=== PATIENT | male | born 1945 | race Caucasian/White ===

== ENCOUNTER 2019-04-01 07:50 | Outpatient (CLI) | payer MEDICARE, BC, SELFPAY ==
--- NOTE | 2019-04-01 07:45 | XR_ITS ---
WS: [id number] KUB, 04/01/2019 Clinical Data: RENAL CALCULUS Comparison: KUB, 02/25/2018. Findings: There are scattered calcifications overlying the left kidney which have not changed in appearance fro m the previous exam. There is a large amount of fecal material obscuring detail over both kidneys. There is a 1.5 cm calcification which is overlying the superior aspect of the bladder that was not pr esent last year. This is suspicious for a small bladder calculus XR/XR KUB [id number] Impression: 1. Several calcifications overlying left kidney obscured by fecal material unch anged. 2. Large amount of fecal material in the colon. 3. Calcification overlying superior aspect of the bladder.
== END 2019-04-01 07:51 | disposition home or self-care (01) ==
LOC: RAD 07:54
PROVIDERS: Family Provider Family Medicine; PCP Family Medicine; Visit Provider Urology
DX: N20.0 Calculus of kidney (principal)
CPT/HCPCS: 74018; 81001

== ENCOUNTER 2019-04-03 10:26 | Day surgery (SDC) | payer MEDICARE, BC, SELFPAY ==
[2019-04-02 12:04] VITALS: BMI 24.4
[2019-04-03] VITALS (8 sets, daily range): BP systolic 104–132; BP diastolic 64–78; PULSE 46–61; RESP 11–18; TEMP 36.9–37; O2SAT 97–100
--- NOTE | 2019-04-03 | SCC_ITS ---
Procedure Done: 1. Cystoscopy with bilateral retrograde ureteropyelogram's 2. Cystolitholapaxy 28.9 seconds of fluoroscopic guidance, for a cumulative dose of 4.80 mGy, was provided to Dr. Brooks by the radiology department. C-arm images of the abdomen were saved for the patient's permanent record. [facility]
[2019-04-03] MEDS: sodium chloride 0.9% 1,000 ML 30 ML IV (10:55)
--- NOTE | 2019-04-03 11:53 | ANES.PREANE2 ---
Pre-Anesthetic Assessment Pre-Anesthetic Assessment: Height/Weight: Height 1.85 m Weight 83.915 kg Temp Pulse Resp BP Pulse Ox 98.6 F 60 18 118/78 99 04/03/19 10:42 04/03/19 10:42 04/03/19 10:42 04/03/19 10:42 04/03/19 10:42 Preop Diagnosis: Bladder stone Proposed Procedure: Operation Date: 04/03/19 12:00 Proposed Procedures p Cystolitholapaxy 32621 N21.0(Not Applicable) - Oscar Brooks MD Familial anesthetic complications: None Was Beta Say taken within 24 hours: N/A Last intake: Intake Last Liquid Date 04/02/19 Last Liquid Time 22:00 Last Solid Date 04/02/19 Last Solid Time 22:00 Social: Social History: No alcohol and No tobacco Exam: Pre-Anes Outpt Exam: alert, oriented x 3, clear to auscultation bilaterally and regular rate & rhythm Airway: Cervical ROM: WNL MP: 2 Dentition: Full Pulmonary: Pulmonary: None reported CV/HEM: CV/HEM: None reported : : None reported Hepatic: Hepatic: None reported GI: GI: None reported Metabolic: Metabolic: None reported Musc/skel: Musc/skel: None reported Neuropsych: Neuropsych: None reported Anesthetic Plan: ASA status: 1 Anesthesia: General Risk of > 500 ml blood loss (7ml/kg in children): No Meds/Allergies Current Medications: Current Medications Generic Name Dose Route Start Last Admin Trade Name Freq PRN Reason Stop Dose Admin Sodium Chloride 1,000 mls @ 30 ml s/hr 04/03/19 10:15 04/03/19 10:55 Sodium Chloride 0.9% IV 04/04/19 10:14 30 mls/hr .Q24H LUIS Administration PFSH Anesthesia PFSH: Social History Smoking and tobacco status: never smoked Alcohol intake: never Marital status: Single Current occupational status: retired History of recent travel: No Data Anesthesia Cardiac Studies: No Data to Display
--- NOTE | 2019-04-03 12:00 | W.PM.OPSUD ---
Surgery/Procedure H&P Update DATE OF PROCEDURE: April 03, 2019 DATE H&P PERFORMED: 04/01/19 H&P UPDATE INFORMATION: I have examined patient prior to procedure and Changes to prior documentation as noted here CHANGES TO PREVIOUS DOCUMENTATION: Patient is worried that he might actually have a ureteral stone. Previous imaging did not demonstrate that in his back pain that he is worried might be a reflection of pain is not typical for renal colic. He did request though that we consider procedure intraoperatively that may help answer that question definitively. I offered rather than endoscopy of his ureters to perform bilateral retrograde pyelograms and explained the utility potentially. He agreed that that would satisfy his concern. PREOP DIAGNOSIS: Bladder stone PLANNED PROCEDURE: Operation Date: 04/03/19 12:00 Proposed Procedures p Cystolitholapaxy 37251 N21.0(Not Applicable) - Oscar Brooks MD
--- NOTE | 2019-04-03 12:02 | P.OP_ITS ---
Operative Report Date of procedure: April 03, 2019 Pre-op Diagnosis: Bladder stone, back pain Post-op diagnosis: same Post-op Findings: Bladder stone as expected. Normal bilateral retrograde pyelogram Implants: None Pathology: other Pathology: Stone fragments Surgeon: Cecilia Anesthesia: General Estimated blood loss: Minimal Urine output: Not measured Complications: None Findings: 1. Normal bilateral retrograde pyelograms 2. Bladder stone easily fragmented with laser lithotripsy and all fragments removed. Condition: stable Disposition: PACU Brief History: Ilir is a very pleasant 74-year-old white male well-known to me for history of stones and polyuria. Recently had some gross hematuria and some irritative voiding symptoms. Cystoscopy demonstrated a bladder stone and with this was felt to be the source of his bleeding and symptoms. KUB failed to show any obvious change in his renal calculi and no evidence of stones in the ureters. Was scheduled for cystolitholapaxy. Today he was expressing some concern that maybe he had a ureteral stone and he had trouble telling the difference between kidney stone pain and his chronic back pain. Requested that I look up into his ureters. We decided to perform instead bilateral retrograde ureteral pyelograms and only consider endoscopy if there is evidence of stones on those studies. He was content with that. Procedure: After routine preoperative evaluation examination and obtaining of informed consent he was taken to the operating suite on 04/03/2019 where general anesthesia was administered without difficulty. Prepped and draped in usual sterile fashion in dorsolithotomy position pain careful attention to voiding pressure points. 21 Citizen Of [place] cystoscope with 30 degree lens was introduced into the urethral meatus and advanced into the bladder videoscopy. Bladder was systematically examined. The stone was confirmed again. No other gross abnormality was identified. There was an area of some inflammation on the posterior bladder wall consistent with irritation from the stone. An 8 Citizen [place] cone-tipped catheter was intubated in his right ureteral orifice for a RIGHT retrograde ureteropyelogram. Findings demonstrated normal course caliber and configuration of the ureter and proximal collecting system. There were no stones seen in the ureter. A LEFT retrograde ureteropyelogram was then performed with the same findings. Attention was then directed to the stone. A 550 ?m homing laser fiber was utilized to fragment the stone to small enough pieces that were then removed with an Ellik evacuator. Bladder wall was inspected and found to be intact with no significant trauma. All fragments were removed from the bladder. Bladder drained. She tolerated the procedure well without complications and was awakened in the operating room and returned to the covered in stable condition. Plans: 1. Follow-up in 6 months with KUB. Sooner for any concerns or questions.
[2019-04-03] MEDS: levofloxacin-dextrose 5 % 500 MG/100 ML PREMIX 100 MG IV (12:05)
--- NOTE | 2019-04-03 12:15 | SC_ITS ---
WS: [id number] C-ARM RADIOGRAPHS BLADDER; 10 IMAGES HISTORY: surgery COMPARISON: 04/01/2019 Intraoperative imaging during retrograde urography. Multiple images are submitted with contrast filli ng the ureters. SC/C-arm FL for Urology IMPRESSION: Intraoperative imaging during retrograde urography.
[2019-04-03] MEDS: iohexol 300 mg/mL 50 mL Btl (OR ONLY) XX (12:28)
--- NOTE | 2019-04-03 12:39 | P.OP_ITS ---
Operative Report Date of procedure: April 03, 2019 Pre-op Diagnosis: Bladder stone, back pain Post-op diagnosis: same Post-op Findings: 1. Bladder stone fragmented all fragments removed 2. Bilateral retrograde ureteral pyelograms normal without evidence of filling defect stones or obstruction. Procedure Done: 1. Cystoscopy with bilateral retrograde ureteropyelogram's 2. Cystolitholapaxy Pathology: Bladder stone fragments Surgeon: Cecilia Anesthesia: General Estimated blood loss: Minimal Urine output: Not measured Complications: None Findings: 1. Bladder stone in expected position and easily fragmented with laser lithotripsy. 2. Normal bilateral retrograde ureteral pyelograms Condition: stable Disposition: PACU Brief History: Ilir is a very pleasant 74-year-old white male with a history of bilateral renal calculi. Recently complained of gross hematuria and irritative voiding symptoms and cystoscopy in the office demonstrated a bladder stone. KUB failed to show any significant change in his renal calculi and no evidence clearly of any stones. He was having some intermittent back pain and he could not distinguish clearly between musculoskeletal chronic back pain and possibility of renal colic (having had stones in the past). Admitted now for cystolitholapaxy and bilateral retrograde ureteral pyelograms (added onto the procedure at his request) Procedure: After routine preoperative evaluation examination and obtaining of informed consent he was taken to the operating suite on 04/03/2019 where general anesthesia was administered without difficulty after appropriate timeout was performed, SCDs confirmed to be functioning, preoperative antibiotics administered, and beta-adilia protocol confirmed. Prepped and draped in the usual sterile fashion in dorsolithotomy position pain careful attention to voiding pressure points. 21 [place] cystoscope with 30 degree lens was introduced to the urethral meatus and advanced into the bladder videoscopy. Bladder was systematically examined. The only abnormality identified in the bladder was the bladder stone in its expected position in size. An 8 [place] cone-tip catheter was intubated into the right ureter orifice for right retrograde ureteropyelogram which showed normal course and caliber of the ureters. No evidence of stones or intraluminal processes. It was then placed into the left ureter for the same with the same results. A 550 ?m homing laser fiber was then utilized to fragment the stone into small enough pieces that were easily evacuated from the bladder. Final inspection showed no evidence of residual stones. There was no significant trauma to the mucosa. Efflux was clear bilaterally from both ureters. He tolerated procedure well without complications and was awakened in the operating room and returned recovery in stable condition. PLANS: 1. Follow-up in about 6 months with a KUB as part of routine surveillance for recurrent urolithiasis.
[2019-04-08 23:00] LABS: Stone Source BLADDER
== END 2019-04-03 14:34 | disposition home or self-care (01) ==
PROVIDERS: Family Provider Family Medicine; PCP Family Medicine; Visit Provider Urology
PROC: 0TCB8ZZ Extirpation of Matter from Bladder, Via Natural or Artificial Opening Endoscopic (ICD-10-PCS; CPT 52005; principal; 2019-04-03 12:00)
PROC: (CPT 74420; 2019-04-03 12:00)
DX: N21.0 Calculus in bladder (principal); R31.0 Gross hematuria
CPT/HCPCS: 52005; 52317; 12345; 76000; 82365; 88300; J1100; J1956; J2001; J2405; J2704; J3010; J3490; J7030

== ENCOUNTER 2019-09-24 12:17 | Outpatient (CLI) | payer MEDICARE, BC, SELFPAY ==
--- NOTE | 2019-09-24 12:00 | XR_ITS ---
WS: [id number] EXAM: ABDOMINAL KUB DATE OF EXAMINATION: 09/24/2019, 1232 hours COMPARISON: Abdominal KUB from 04/01/2019. HISTORY: Patient is 74 years old with kidney stone follow-up. FINDINGS: Bowel gas pattern is normal. There is increased stool in the right side of the colon extending into t he mid descending colon region. This obscures soft tissue detail. Several small calcifications are se en over the left kidney silhouette suggesting small amount of nonobstructing calyceal calcifications. Similar to prior imaging. No definite calcifications seen over the right kidney silhouette but this is obscured by stool. No calcifications are seen overlying the course of the ureters. Multilevel dege nerative changes are seen in the spine. Solid organ silhouettes do not appear enlarged XR/XR KUB [id number] IMPRESSION: Several small punctate calcifications no more than 2 mm in size overlying the l eft kidney silhouette similar to prior imaging. No calcification over the right kidney silhouette or course of the ureters identified to suggest right renal o r ureteral calculi.
== END 2019-09-24 12:18 | disposition home or self-care (01) ==
LOC: RAD 12:23
PROVIDERS: PCP Family Medicine; Visit Provider Urology
DX: N20.0 Calculus of kidney (principal)
CPT/HCPCS: 74018; 81001

== ENCOUNTER 2020-08-18 10:50 | Inpatient (IN) | payer MEDICARE, BC, SELFPAY ==
[2020-08-18] VITALS (18 sets, daily range): BP systolic 98–128; BP diastolic 57–82; PULSE 48–104; RESP 15–20; TEMP 36.7; O2SAT 94–100; BMI 22.1
--- NOTE | 2020-08-18 11:38 | XR_ITS ---
WS: [id number] Portable AP upright chest, 08/18/2020 Clinical Data: dyspnea/cough Comparison: None. Findings: No nodules, masses or effusions are seen. There are minimal patchy upper lobe opacities whi ch may represent chronic fibrotic interstitial change or minimal pneumonia. The heart is normal. The pulmonary vascularity is not increased. No pneumothorax is seen. The aortic arch shows mild tortuosi ty. There are monitor leads on the chest wall. XR/XR chest 1V portable [id number] Impression: 1. Minimal interstitial change in both upper lobes which could indicate chronic fibrotic change or mild pneumonia. 2. Recommend repeat chest x-ray in 2-3 days.
--- NOTE | 2020-08-18 11:39 | ECG_ITS ---
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 Measurements Intervals [place] Rate: 90 P: MO: QRS: 57 QRSD: 103 T: 46 QT: 367 QTc: 449 Interpretive Statements ATRIAL FLUTTER ABNORMAL RHYTHM ECG No previous ECG available for comparison Electronically Signed On 08-18-2020 21:44:00 CDT by Lana Best M.D. [id number]
[2020-08-18 12:03] LABS: Basophils % 0.2 %; Eosinophils % 0.3 %; Hematocrit 43.9 % (42.0-52.0); Lymphocytes # 1.4 10^3/uL (0.8-4.8); Lymphocytes % 21.7 %; Mean Corpuscular HGB Conc 31.9 g/dL (30.0-36.0); Mean Corpuscular Hemoglobin 30.6 pg (28.0-34.0); Mean Corpuscular Volume 95.9 fL (80-94); Mean Platelet Volume 10.1 fL (7.4-10.4); Monocytes # 0.4 10^3/uL (0.2-0.9); Monocytes % 6.2 %; Neutrophils # 4.49 10^3/uL (1.8-7.7); Neutrophils % 71.4 %; Nucleated Red Blood Cells % 0 %; Platelet Count 208 10^3/cmm (130-400); Red Blood Count 4.58 10^6/uL (4.1-5.3); Red Cell Distribution Width 13.9 % (12.1-15.1); White Blood Count 6.3 10^3/uL (4.0-10.0)
[2020-08-18 12:12] LABS: Add Urine Microscopic? NO; Charge for UA Resulting for Rev
[2020-08-18 12:27] LABS: Troponin(5th) Baseline 19 ng/L (0-15)
[2020-08-18 12:37] LABS: Alanine Aminotransferase 12 U/L (0-41); Albumin Level 4.4 g/dL (3.5-5.2); Alkaline Phosphatase 55 IU/L (40-130); Anion Gap 13.6 (5-19); Aspartate Amino Transferase 18 U/L (0-40); Blood Urea Nitrogen 18 mg/dL (8-23); Calcium 9.2 mg/dL (8.5-10.5); Carbon Dioxide 27 mmol/L (22-29); Chloride 105 mmol/L (98-107); Creatine Phosphokinase 92 U/L (39-308); Globulin 1.8 g/dL (1.3-4.6); Glucose 97 mg/dL (65-115); Osmolality Calculated 294 mOsm/kg (285-295); Potassium 4.6 mmol/L (3.5-5.1); Sodium 141 mmol/L (136-145); Total Bilirubin 0.7 mg/dL (0.15-1.2); Total Protein 6.2 g/dL (6.6-8.7)
[2020-08-18 12:42] LABS: Bilirubin Urine Neg (Negative); Blood Urine Neg (Negative); Glucose Urine UA Norm (Normal); Ketones Urine Negative (Negative); Leukocyte Esterase Urine Negative (Negative); Nitrate Urine Negative (Negative); Protein Urine 1+ (Negative); Specific Gravity, Urine 1.025 (1.005-1.030); Urine Appearance Clear (CLEAR); Urine Color Yellow (Yellow); Urobilinogen Urine 1 mg/dL (Negative); pH Urine 5 (5-7)
--- NOTE | 2020-08-18 13:18 | ED_ITS ---
HPI - Syncope General: Chief Complaint: Syncope Stated Complaint: syncope episode, sent from [facility] Time Seen by Provider: 08/18/20 11:37 History of Present Illness: HPI narrative: 75-year-old male presents emergency room he had episodes last night where he stood up he had diaphoretic had a syncopal episode actually woke up on the floor he denies striking his head. He has not had any chest discomfort he denies any cardiac history no known history of irregular heart rhythms. MD complaint: collapsed Onset (ago): hour(s) -: minutes(s) Prodromal symptoms: none Witnessed: No Context: standing up Injuries sustained associated with event: none Associated symptoms: Reports weakness; Deny abdominal pain, chest pain, fever(s), headache(s), lightheadedness, nausea, short of breath or vertigo Treatments prior to arrival: none Review of Systems Const: Denies: fever(s) ENMT: Denies: throat pain, ear or mastoid pain, nasal discharge or nasal congestion Card: Denies: chest pain or lightheadedness Resp: Denies: dyspnea, productive cough or non-productive cough GI: Denies: abdominal pain or nausea : Denies: flank pain, dysuria, urinary frequency or urinary urgency Skin/Breast: Denies: rash or pruritus Neuro: Denies: headache(s) or vertigo PFS ED PFSH: Medical History Bladder stone Gross hematuria History of herniated intervertebral disc Since he was at least 32years old. 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 It does not affect his life and he does not take any medications for it. 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 Urolithiasis Surgical History H/O lithotripsy ESWL History of tonsillectomy Family History Mother , AT AGE 90 Diabetes CHF (congestive heart failure) Father CHF (congestive heart failure) AT AGE 92 Brother Protein S deficiency Unknown No problems noted. Family/Other Protein S deficiency His brother w/ Protein S deficiency's 2 daughters (Patient's 2 nieces). One of the niece's 2 daughters. Social History Smoking and tobacco status: never smoked Alcohol intake: never Marital status: Single Current occupational status: retired History of recent travel: No Physical Exam Const: COMMON NORMALS: no acute distress GENERAL APPEARANCE: cooperative and comfortable ORIENTATION/CONSCIOUSNESS: Yes awake, Yes oriented to person, Yes oriented to place and Yes oriented to time HENMT: COMMON NORMALS: normocephalic, atraumatic and hearing grossly normal bilaterally HEAD & SCALP: normocephalic and atraumatic Neck/C-Spine: COMMON NORMALS: no JVD Resp: COMMON NORMALS: normal respiratory effort, No retractions, No use of accessory muscles and clear to auscultation bilaterally AUSCULTATION: clear to auscultation bilaterally Cardio: COMMON NORMALS: no JVD, regular rate and No murmurs present (Cardio) RATE: regular rate RHYTHM: abnormal rhythm irregularly irregular GI: COMMON NORMALS: Soft to palpation and No hepatosplenomegaly present AUSCULTATION: Yes normoactive bowel sounds PALPATION: Yes Soft to palpation, No Tenderness to palpation present (GI), No Guarding due to palpation present (GI) and Yes No hepatosplenomegaly present Extremity: COMMON NORMALS: normal to inspection, capillary refill normal, no clubbing, cyanosis or edema, no calf tenderness and no pedal edema Neuro: SENSORIUM/ORIENTATION: Yes oriented to person, Yes oriented to place and Yes oriented to time Skin: COMMON NORMALS: no rashes or lesions noted GENERAL SKIN EXAM: no rashes or lesions noted Course Vital Signs: Vital signs: Vital Signs Temperature 97.9 F 08/20/20 11:44 Pulse Rate 56 L 08/20/20 11:44 Respiratory Rate 17 08/20/20 11:44 Blood Pressure 96/56 08/20/20 11:44 Pulse Oximetry 98 08/20/20 11:44 MDM - Syncope MDM Narrative: Medical decision making narrative: syncopal episodes patient still feeling lightheaded and dizzy he is alternating between tachycardic and hypo-after fluids. Patient is in atrial fibrillation which is new but his rate is controlled. Go ahead and put him on obs discussed with hospitalist orders. Lab Data: Labs: Lab Results 08/18/20 08/18/20 08/18/20 Range/Units 00:38 11:55 11:55 WBC 6.3 (4.0-10.0) 10^3/ uL RBC 4.58 (4.1-5.3) 10^6/u L Hgb 14.0 (11.7-16.6) g/dL Hct 43.9 (42.0-52.0) % MCV 95.9 H (80-94) fL MCH 30.6 (28.0-34.0) pg MCHC 31.9 (30.0-36.0) g/dL RDW 13.9 (12.1-15.1) % Plt Count 208 (130-400) 10^3/c mm MPV 10.1 (7.4-10.4) fL Neut % (Auto) 71.4 % Lymph % (Auto) 21.7 % [place] % (Auto) 6.2 % Eos % (Auto) 0.3 % Baso % (Auto) 0.2 % Neut # (Auto) 4.49 (1.8-7.7) 10^3/u L Lymph # (Auto) 1.4 (0.8-4.8) 10^3/u L [place] # (Auto) 0.4 (0.2-0.9) 10^3/u L Eos # (Auto) 0.0 (0.0-0.8) 10^3/u L Baso # (Auto) 0.0 (0.0-0.1) 10^3/u L Nucleated RBC % (a uto) 0 % Nucleated RBCs # 0.0 /100WBC D-Dimer <= 0.27 (0-0.59) ug/mIFE U Sodium 141 (136-145) mmol/L Potassium 4.6 (3.5-5.1) mmol/L Chloride 105 (98-107) mmol/L Carbon Dioxide 27 (22-29) mmol/L Anion Gap 13.6 (5-19) BUN 18 (8-23) mg/dL Creatinine 0.8 (0.7-1.2) mg/dL GFR Calculation Not Reportable Glucose 97 (65-115) mg/dL Calculated Osmolal ity 294 (285-295) mOsm/k g Calcium 9.2 (8.5-10.5) mg/dL Total Bilirubin 0.7 (0.15-1.2) mg/dL AST 18 (0-40) U/L ALT 12 (0-41) U/L Alkaline Phosphata se 55 (40-130) IU/L Creatine Kinase 92 (39-308) U/L Troponin T Baselin e (0-15) ng/L Troponin T 120 Min [place] (0-15) ng/L Delta Troponin T (0-10) ABS# Total Protein 6.2 L (6.6-8.7) g/dL Albumin 4.4 (3.5-5.2) g/dL Globulin 1.8 (1.3-4.6) g/dL TSH 1.20 (0.27-4.20) uIU/ mL Urine Color (Yellow) Urine Appearance (CLEAR) Urine pH (5-7) Ur Specific Gravit y (1.005-1.030) Urine Protein (Negative) Urine Glucose (UA) (Normal) Urine Ketones (Negative) Urine Blood (Negative) Urine Nitrate (Negative) Urine Bilirubin (Negative) Urine Urobilinogen (Negative) mg/dL Ur Leukocyte Lisa ase (Negative) 08/18/20 08/18/20 08/18/20 Range/Units 11:55 12:07 14:12 WBC (4.0-10.0) 10^3/ uL RBC (4.1-5.3) 10^6/u L Hgb (11.7-16.6) g/dL Hct (42.0-52.0) % MCV (80-94) fL MCH (28.0-34.0) pg MCHC (30.0-36.0) g/dL RDW (12.1-15.1) % Plt Count (130-400) 10^3/c mm MPV (7.4-10.4) fL Neut % (Auto) % Lymph % (Auto) % [place] % (Auto) % Eos % (Auto) % Baso % (Auto) % Neut # (Auto) (1.8-7.7) 10^3/u L Lymph # (Auto) (0.8-4.8) 10^3/u L [place] # (Auto) (0.2-0.9) 10^3/u L Eos # (Auto) (0.0-0.8) 10^3/u L Baso # (Auto) (0.0-0.1) 10^3/u L Nucleated RBC % (a uto) % Nucleated RBCs # /100WBC D-Dimer (0-0.59) ug/mIFE U Sodium (136-145) mmol/L Potassium (3.5-5.1) mmol/L Chloride (98-107) mmol/L Carbon Dioxide (22-29) mmol/L Anion Gap (5-19) BUN (8-23) mg/dL Creatinine (0.7-1.2) mg/dL GFR Calculation Glucose (65-115) mg/dL Calculated Osmolal ity (285-295) mOsm/k g Calcium (8.5-10.5) mg/dL Total Bilirubin (0.15-1.2) mg/dL AST (0-40) U/L ALT (0-41) U/L Alkaline Phosphata se (40-130) IU/L Creatine Kinase (39-308) U/L Troponin T Baselin e 19 H (0-15) ng/L Troponin T 120 Min [place] 17.10 H (0-15) ng/L Delta Troponin T -1.90 L (0-10) ABS# Total Protein (6.6-8.7) g/dL Albumin (3.5-5.2) g/dL Globulin (1.3-4.6) g/dL TSH (0.27-4.20) uIU/ mL Urine Color Yellow (Yellow) Urine Appearance Clear (CLEAR) Urine pH 5 (5-7) Ur Specific Gravit y 1.025 (1.005-1.030) Urine Protein 1+ H (Negative) Urine Glucose (UA) Norm (Normal) Urine Ketones Negative (Negative) Urine Blood Neg (Negative) Urine Nitrate Negative (Negative) Urine Bilirubin Neg (Negative) Urine Urobilinogen 1 H (Negative) mg/dL Ur Leukocyte Lisa ase Negative (Negative) Discharge Plan Discharge Patient Disposition: Placed in Observation Admit Provider: Anna Colby Clinical Impression: Syncope, Atrial flutter, paroxysmal Coding Level of Care Code ED Socially Responsible Investment Adviser for g Ruperto
--- NOTE | 2020-08-18 13:19 | CT_ITS ---
WS: [id number] CT CERVICAL TRAUMA TECHNIQUE: Noncontrast CT of the cervical spine with coronal and sagittal reformatted images. CLINICAL INFORMATION: fall COMPARISON: None. DLP: 620.[address] scans at [facility] use at least one of these dose optimization techniques: automat ed exposure control; mA and/or kV adjustment per patient size (includes targeted exams where dose is matched to clinical indication); or iterative reconstruction. FINDINGS: Straightening of the normal cervical lordosis. Mild spondylitic changes. Disc space narrowing worse a t C3-C4 C4-C5 and C6-C7. Normal prevertebral soft tissues. Normal craniocervical junction. Normal C1- C2 articulation. Dens is normal in appearance. Normal occipital condyles. No high-grade spinal canal narrowing. Normal C1 ring. No evidence of acute fracture or dislocation. Mastoids air cells are well aerated. A few small thyroid nodules. CT/CT cervical spin wo con* [id number] IMPRESSION: No evidence of acute fracture or dislocation.
--- NOTE | 2020-08-18 13:19 | CT_ITS ---
WS: [id number] CT HEAD TECHNIQUE: Noncontrast CT of the head obtained from the skullbase to the vertex. CLINICAL INFORMATION: LOC COMPARISON: None. DLP: 1204.[address] scans at [facility] use at least one of these dose optimization techniques: automat ed exposure control; mA and/or kV adjustment per patient size (includes targeted exams where dose is matched to clinical indication); or iterative reconstruction. FINDINGS: No evidence of intracranial hemorrhage or mass effect. Ventricular system and basal cisterns are fatima nt. Mild small vessel changes with mild parenchymal volume loss. No extra-axial fluid collections. No evidence of mass or mass effect. Normal hoff-white differentiation. Paranasal sinuses and mastoid air cells are well aerated. .Normal visualized soft tissues. CT/CT head wo con* [id number] IMPRESSION: 1. No evidence of intracranial hemorrhage or mass effect. 2. Mild small vessel changes. Mild parenchymal volume loss. 3. No acute intracranial findings.
--- NOTE | 2020-08-18 13:39 | ECG_ITS ---
[facility] Test Date: 2020-08-18 Pat Name: Ilir Correa Department: Room: Gender: Male Fixing Carpenter: : 1945 Requested By: Britton Narayanan Order Number: [id number] Teena MD: Lana Best M.D. Measurements Intervals [place] Rate: 48 P: 85 MO: 217 QRS: 2 QRSD: 100 T: 38 QT: 432 QTc: 389 Interpretive Statements SINUS BRADYCARDIA WITH FIRST DEGREE AV BLOCK LOW QRS VOLTAGE IN PRECORDIAL LEADS [QRS DEFLECTION < 1.0 mV IN CHEST LEADS] No previous ECG available for comparison Electronically Signed On 08-18-2020 21:57:56 CDT by Lana Best M.D. [email or web address]
[2020-08-18 18:47] LABS: Troponin 5 6HR 13.01 ng/L (0-15)
[2020-08-18 18:59] LABS: Troponin 5 6HR Delta -5.99 ng/L (0-12)
--- NOTE | 2020-08-18 19:33 | PC.NURSE ---
arrived from ED via WC, transferred self to bed, AO x4, no c/o at this time, follows commands at this time
--- NOTE | 2020-08-18 20:23 | P.HP_ITS ---
Providers/Chief Complaint Admitting Physician: Anna Colby MD Primary Care Provider: Charlie Sears MD Chief Complaint: syncope episode, sent from [facility] History of Present Illness Ilir Correa is a 75yo man w/ Nephrolithiasis s/p Lithotripsy, Nocturia, and a hx of intention tremors, but on no medications except Centrum Multivitamin, who was referred from [facility] walk-in clinic to the ED on 08/18/2020, for an arrhythmia, after he presented to the walk-in clinic with complaints of syncope. The patient states that early this AM At 1am, he woke up as he usually does, to urinate, when he felt dizzy, hot from his head to his chest, and then became diaphoretic. He also complained of a static noise that he heard in his ears, but not tendinitis, ear fullness, ear pain, or ear discharge. He stated that he became more dizzy, and decided to go back to bed. The next thing he knew, he woke up on the floor. He does not think that he had any head trauma, but he does not know. Around 3:30 AM, patient again went to urinate. He felt the same symptoms again, and decided to return to bed. He made it back to bed, and did not lose consciousness. When he forgot this morning, he felt tired, generalized weakness, chest tightness, and with increased tremors in his hands. He also complained of shoulder and neck pain due to the fall. He went to [facility] walk-in clinic, where he was noted to have an irregular heartbeat, and was sent to the ED. He denies chest pain, palpitations, fever, chills, shortness of breath, coughing, wheezing, visual changes, abdominal pain, nausea, vomiting, diarrhea, constipation, melena, hematochezia, myalgias or arthralgias. He endorses having a good appetite, and states that he has lost weight intentionally. Regarding his sxs, he endorses nocturia varying from 2- 5x/night, terminal dribbling & occasional incomplete emptying. He denies dysuria, hematuria, increased urinary urgency & freq. He sees Urologist, Dr. Brooks for his Nephrolithiasis, and states that he has been informed by his Urologist that he does not have an enlarged prostate. 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 In the ED, he was in atrial flutter that ranged from 90-104. His CT head was negative for any acute intracranial hemorrhage or mass-effect. His CT C-spine was negative for any acute fractures or dislocations. CXR showed minimal interstitial change in both upper lobes concerning for chronic fibrotic change or mild pneumonia. A repeat CXR was recommended to be done in 2 to 3 days. He was started on 1 L NS & his Trop T was negative. His UA was negative for a UTI. His TSH was within normal limits. He was started on continuous. He was admitted for his syncope and new onset Aflutter. On admission he was in Normal sinus rhythm. Review of Systems Const: Reports: body aches; Denies: fever(s) or chills Eyes: Denies: change in vision ENMT: Denies: throat pain, odynophagia, ear or mastoid pain, nasal discharge or nasal congestion Card: Reports: syncope; Denies: chest pain, palpitations, swelling of feet/ankles or lightheadedness Resp: Reports: other (positive for chest tightness); Denies: dyspnea, productive cough or wheezing GI: Denies: abdominal pain, nausea, vomiting, diarrhea or constipation : Reports: other (incomplete emptying, terminal dribbling. ); Denies: difficulty urinating, urinary frequency, urinary urgency or hematuria Musc: Reports: neck pain and other (shoulder pain ) Skin/Breast: Denies: sores or new lesions Neuro: Reports: dizziness; Denies: headache(s) or seizure-like activity Psych: Denies: anxiety, depression, suicidal ideation or homicidal ideation Endo: Reports: heat intolerance; Denies: cold intolerance Mike/Lymph: Reports: easy bleeding; Denies: easy bruising All/Imm: Reports: seasonal rhinorrhea Medications/Allergies Home Medications Medication Instructions Recorded Confirmed Last Taken Type jtrjowkf-tuv-QR-lycopen-lutein 1 tab PO DAILY 08/18/20 08/18/20 08/17/20 History [Centrum Silver Men] Allergies Allergy/AdvReac Type Severity Reaction Status Date / Time zoster vaccine live Allergy Mild ADR-Muscle Verified 06/17/20 09:38 [From Zostavax (PF)] Pain PFSH Acute PFSH: Medical History (Updated 08/18/20 @ 22:07 by Anna Colby MD) Bladder stone Gross hematuria History of herniated intervertebral disc Since he was at least 32years old. 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 It does not affect his life and he does not take any medications for it. 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 Urolithiasis Surgical History H/O lithotripsy ESWL History of tonsillectomy Family History (Updated 08/18/20 @ 21:31 by Anna Colby MD) Mother , AT AGE 90 Diabetes CHF (congestive heart failure) Father CHF (congestive heart failure) AT AGE 92 Brother Protein S deficiency Unknown No problems noted. Family/Other Protein S deficiency His brother w/ Protein S deficiency's 2 daughters (Patient's 2 nieces). One of the niece's 2 daughters. Social History (Updated 08/18/20 @ 21:45 by Anna Colby MD) Smoking and tobacco status: never smoked Alcohol intake: never Substance/Drug Use: never Marital status: Single Current occupational status: retired History of recent travel: No Vitals/I&O/Wt Last Vital Signs Temp 98.1 F 08/18/20 11:23 Pulse 62 08/18/20 19:10 Resp 15 08/18/20 19:10 BP 100/78 08/18/20 19:10 Pulse Ox 99 08/18/20 19:10 Weight last 48 hrs Weight 76.204 kg Physical Exam Const: GENERAL APPEARANCE: cooperative and comfortable; not ill appearing ORIENTATION/CONSCIOUSNESS: Yes awake, Yes oriented to person, Yes oriented to place and Yes oriented to time Eye: CONJUNCTIVA: Yes conjunctivae normal PUPIL: Yes Equal, round and reactive pupils present EOM: No EOM abnormal Neck/C-Spine: GENERAL: Yes trachea midline and Yes anterior neck swelling (L. sided) THYROID: Thyroid normal CAROTIDS: Yes normal carotid upstroke Resp: AUSCULTATION: clear to auscultation bilaterally, no crackles, no rales, no rhonchi and no wheezes Cardio: RATE: regular rate RHYTHM: regular rhythm HEART SOUNDS: no click, no gallops, no murmurs and no rubs GI: INSPECTION: Yes normal to inspection AUSCULTATION: Yes normoactive bowel sounds PALPATION: Yes Soft to palpation, No Tenderness to palpation present (GI), No Guarding due to palpation present (GI), No Rigid due to palpation, Yes No hepatosplenomegaly present and No Rebound tenderness present Extremity: COMMON NORMALS: no clubbing, cyanosis or edema Neuro: SENSORIUM/ORIENTATION: Yes alert, Yes oriented to person, Yes oriented to place and Yes oriented to time CRANIAL NERVES: Yes CN normal except as noted COORDINATION/BALANCE: other (Intention tremors) SPEECH: speech normal GAIT: Yes Normal gait present SENSORY EXAM: Yes Normal double simultaneous stimulation for sensation MOTOR EXAM: 5/5 motor strength present throughout and Normal motor muscle tone present throughout Psych: ATTITUDE: Yes calm and Yes engaged ACTIVITY/MOTOR BEHAVIOR: Yes appropriate eye contact SPEECH: Yes normal speech MOOD & AFFECT: Yes euthymic mood THOUGHT PROCESS: Normal thought process present Skin: GENERAL SKIN EXAM: no rashes or lesions noted and other (Very tanned) Data : 08/18/20 11:55 08/18/20 11:55 A&P Assessment and plan (1) Syncope: Status: Acute (2) Atrial flutter, paroxysmal: Status: Acute (3) Intention tremor: Status: Inactive Ilir Correa is a 75yo man w/ Nephrolithiasis s/p Lithotripsy, Nocturia, and a hx of intention tremors, but on no medications except Centrum Multivitamin, who was referred from [facility] walk-in clinic to the ED on 08/18/2020, for an arrhythmia, after he presented to the walk-in clinic with complaints of syncope. # Syncope - CXR showing possible interstitial change or minimal pneumonia. Obtain CT chest. In the meantime, hold on ordering antibiotics, given that the patient has no other symptoms consistent with pneumonia. Follow-up Covid 19 PCR test. - Trop T neg. F/u TTE, Carotid US, D-dimer, HLD, A1c. F/u results of orthostatic vitals. Obtain orthostatic vitals in the AM # Paroxysmal Afib -F/u TTE. Continue Cardiac monitoring. Continue NS. #Intention tremors -has never been on medication, because it does not affect his quality of life. Attestations Medical Necessity Statement*: Patient requires continued hospitalization for his new onset atrial flutter, and syncope. Coding Level of Care Code Acute Drier Operator Head for Lesli Hickey Diagnoses Syncope R55 Atrial flutter, paroxysmal I48.92 Intention tremor G25.2
--- NOTE | 2020-08-18 21:16 | ECG_ITS ---
[facility] Test Date: 2020-08-18 Pat Name: Ilir Correa Department: Room: ICU06 Gender: Male Direct Support Professional Home Health: : 1945 Requested By: Anna Colby Order Number: [id number] Teena MD: Lana Best M.D. Measurements Intervals [place] Rate: 51 P: 81 SC: 216 QRS: 26 QRSD: 116 T: 47 QT: 443 QTc: 410 Interpretive Statements SINUS BRADYCARDIA WITH FIRST DEGREE AV BLOCK MODERATE INTRAVENTRICULAR CONDUCTION DELAY [110+ ms QRS DURATION] Compared to ECG 08/18/2020 13:22:22 Intraventricular conduction delay now present Electronically Signed On 08-18-2020 21:50:11 CDT by Lana Best M.D. [id number]
[2020-08-18] MEDS: enoxaparin 40 mg/0.4 mL Syringe SUBCUT (22:17)
[2020-08-18] MEDS: methocarbamol 500 mg Tablet PO (22:18)
[2020-08-18] MEDS: sodium chloride 0.9% 1,000 ML 250 ML IV (22:23)
[2020-08-19] VITALS (11 sets, daily range): BP systolic 100–121; BP diastolic 47–70; PULSE 53–81; RESP 14–20; TEMP 36.8–37.4; O2SAT 96–99
--- NOTE | 2020-08-19 | PC.NURSE ---
Transfer Note Arrived from ICU at this time. Pt alert and oriented X 4. Breathing even and non-labored on room air. Denies any pain, denies dizziness. Placed on bedside cardiac technologist, rhythm SR-SB. Oriented to room and call light system. Pt wishes to stay in his own clothing. Pt placed in droplet isolation pending covid test.
[2020-08-19 01:31] LABS: D Dimer <= 0.27 ug/mIFEU (0-0.59)
[2020-08-19] MEDS: sodium chloride 0.9% 1,000 ML 100 ML IV ×2 (04:41→15:31)
--- NOTE | 2020-08-19 05:39 | ECG_ITS ---
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 Measurements Intervals [place] Rate: 50 P: 74 [place]: 190 QRS: 35 QRSD: 115 T: 53 QT: 448 QTc: 411 Interpretive Statements SINUS BRADYCARDIA LOW QRS VOLTAGE IN EXTREMITY LEADS [QRS DEFLECTION < 0.5 mV IN LIMB LEADS] INCOMPLETE RIGHT BUNDLE BRANCH BLOCK [90+ ms QRS DURATION, TERMINAL R IN V1/V2, 40+ ms S IN I/aVL/V4/V5/V6] Compared to ECG 08/18/2020 21:46:44 Low QRS voltage now present Incomplete right bundle-branch block now present First degree AV block no longer present Intraventricular conduction delay no longer present Electronically Signed On 08-19-2020 23:42:20 CDT by Mario Fernández M.D. [id number]
[2020-08-19 05:46] LABS: Basophils % 0.5 %; Eosinophils # 0.1 10^3/uL (0.0-0.8); Eosinophils % 1.7 %; Hematocrit 39.1 % (42.0-52.0); Hemoglobin 12.5 g/dL (11.7-16.6); Lymphocytes # 2.2 10^3/uL (0.8-4.8); Lymphocytes % 35.3 %; Mean Corpuscular Hemoglobin 30.6 pg (28.0-34.0); Mean Corpuscular Volume 95.8 fL (80-94); Mean Platelet Volume 10.1 fL (7.4-10.4); Monocytes # 0.4 10^3/uL (0.2-0.9); Neutrophils # 3.57 10^3/uL (1.8-7.7); Neutrophils % 56.3 %; Nucleated Red Blood Cells % 0 %; Platelet Count 169 10^3/cmm (130-400); Red Blood Count 4.08 10^6/uL (4.1-5.3); Red Cell Distribution Width 13.9 % (12.1-15.1); White Blood Count 6.3 10^3/uL (4.0-10.0)
[2020-08-19 06:01] LABS: Alanine Aminotransferase 9 U/L (0-41); Albumin Level 3.5 g/dL (3.5-5.2); Alkaline Phosphatase 43 IU/L (40-130); Aspartate Amino Transferase 18 U/L (0-40); Blood Urea Nitrogen 21 mg/dL (8-23); Calcium 8.3 mg/dL (8.5-10.5); Carbon Dioxide 26 mmol/L (22-29); Chloride 107 mmol/L (98-107); Glucose 81 mg/dL (65-115); Magnesium 1.9 mg/dL (1.7-2.3); Osmolality Calculated 294 mOsm/kg (285-295); Phosphorus 2.8 mg/dL (2.5-4.5); Sodium 141 mmol/L (136-145); Total Bilirubin 0.9 mg/dL (0.15-1.2); Total Protein 5.5 g/dL (6.6-8.7)
[2020-08-19 06:02] LABS: Estmated Average Glucose 97
[2020-08-19 06:03] LABS: INR 1.24 (0.8-1.2)
[2020-08-19 06:04] LABS: Partial Thromboplastin Time 36.5 SECONDS (23.9-36.7)
[2020-08-19 06:15] LABS: NT Pro B Type Natriuretic Pept 325 pg/mL (0-125); Procalcitonin 0.02 ng/mL (0-0.5)
[2020-08-19 06:26] LABS: Chol HDL Ratio 2.07 mg/dL (1.0-5.00); Cholesterol 114 mg/dL (0-200); HDL Cholesterol 55 mg/dL (60-100); LDL Cholesterol Calculated 51 mg/dL (50-129); LDL HDL Ratio 0.93 RATIO (0.00-3.22); Triglycerides 39 mg/dL (0-150)
--- NOTE | 2020-08-19 08:12 | PM.PN ---
Subjective Subjective: Interval history: The patient states that he feels well, denies any symptoms of dizziness, diap Vitals/I&O/Wt Last Vital Signs Temp 98.4 F 08/19/20 04:00 Pulse 58 L 08/19/20 04:00 Resp 18 08/19/20 04:00 BP 111/58 08/19/20 04:00 Pulse Ox 97 08/19/20 01:00 08/18/20 08/19/20 08/19/20 22:59 06:59 14:59 Intake Total 150 / 150 Output Total 275 / 275 Balance -125 / -125 Weight last 48 hrs Weight 76.204 kg Weight 76.113 kg Weight 76.204 kg Physical Exam Const: COMMON NORMALS: alert GENERAL APPEARANCE: cooperative and comfortable; not ill appearing ORIENTATION/CONSCIOUSNESS: Yes awake, Yes oriented to person, Yes oriented to place and Yes oriented to time Eye: COMMON NORMALS: Equal, round and reactive pupils present and conjunctivae normal CONJUNCTIVA: Yes conjunctivae normal PUPIL: Yes Equal, round and reactive pupils present EOM: No EOM abnormal Neck/C-Spine: COMMON NORMALS: Thyroid normal GENERAL: Yes trachea midline and Yes anterior neck swelling (L. sided) THYROID: Thyroid normal CAROTIDS: Yes normal carotid upstroke Resp: COMMON NORMALS: clear to auscultation bilaterally AUSCULTATION: clear to auscultation bilaterally, no crackles, no rales, no rhonchi and no wheezes Cardio: COMMON NORMALS: regular rate and regular rhythm RATE: regular rate RHYTHM: regular rhythm HEART SOUNDS: no click, no gallops, no murmurs and no rubs GI: COMMON NORMALS: Soft to palpation and No hepatosplenomegaly present INSPECTION: Yes normal to inspection AUSCULTATION: Yes normoactive bowel sounds PALPATION: Yes Soft to palpation, No Tenderness to palpation present (GI), No Guarding due to palpation present (GI), No Rigid due to palpation, Yes No hepatosplenomegaly present and No Rebound tenderness present Extremity: COMMON NORMALS: no clubbing, cyanosis or edema Neuro: SENSORIUM/ORIENTATION: Yes alert, Yes oriented to person, Yes oriented to place and Yes oriented to time CRANIAL NERVES: Yes CN normal except as noted COORDINATION/BALANCE: other (Intention tremors) SPEECH: speech normal GAIT: Yes Normal gait present SENSORY EXAM: Yes Normal double simultaneous stimulation for sensation MOTOR EXAM: 5/5 motor strength present throughout and Normal motor muscle tone present throughout COORDINATION: other (Intention tremors) Psych: COMMON NORMALS: Normal thought process present and speech normal ATTITUDE: Yes calm and Yes engaged ACTIVITY/MOTOR BEHAVIOR: Yes appropriate eye contact SPEECH: Yes normal speech MOOD & AFFECT: Yes euthymic mood THOUGHT PROCESS: Normal thought process present Skin: COMMON NORMALS: no rashes or lesions noted GENERAL SKIN EXAM: no rashes or lesions noted and other (Very tanned) Data : 08/19/20 05:28 08/20/20 04:34 A&P Assessment and plan (1) Syncope: Status: Acute (2) Atrial flutter, paroxysmal: Status: Acute (3) Intention tremor: Status: Inactive Ilir Correa is a 75yo man w/ Nephrolithiasis s/p Lithotripsy, Nocturia, and a hx of intention tremors, but on no medications except Centrum Multivitamin, who was referred from [facility] walk-in clinic to the ED on 08/18/2020, for an arrhythmia, after he presented to the walk-in clinic with complaints of syncope. # Syncope - CXR showing possible interstitial change or minimal pneumonia. Obtain CT chest. In the meantime, hold on ordering antibiotics, given that the patient has no other symptoms consistent with pneumonia. Follow-up Covid 19 PCR test. - Trop T neg. TTE showing an EF of 55% with grade 2 diastolic dysfunction. Carotid US shows no carotid artery stenosis. LDL of 55. A1c pending. Orthostatic vitals on admission was negative. Obtain orthostatic vitals in the AM # Paroxysmal Afib -Continue Cardiac monitoring. D/c NS. Consult Cardiology. #Intention tremors -has never been on medication, because it does not affect his quality of life. Attestations Medical Necessity Statement*: Patient requires continued hospitalization due to possible need for a stress test. Time Spent in Patient Care: 16 - 35 minutes Coding Level of Care Code Acute Renewable Energy Engineer for [facility] Fwd Exam Comprehensive Diagnoses Syncope R55 Atrial flutter, paroxysmal I48.92 Intention tremor G25.2
--- NOTE | 2020-08-19 10:25 | PC.CHAP ---
Pastoral Care Encounter/Spiritual Assessment Type of Contact [] Declined field superintendent visit [] Patient/Family/Request visit [] Outpatient visit [] Follow-up visit [] Physician referral [] Code/Alert [] Routine visit [] Staff referral [] Actively dying [] Patient sleeping [] Family support [] [] Out of room [] Palliative care [] [] Receiving care in room [] Pre-surgical visit [] Trauma [] Long length of stay [] ICU visit [x] Other: Isolation covid Relational/Emotional Strength [] Patient feels connected with others/family/visitors/staff [] Distress [] Loneliness/isolation [] Abandonment Spirituality of Patient [] Person of Lianet [] Attends Voodoo of their Lianet [] Believes in Prayer [] Reads Bible or Quaker materials [] There are Spiritual issues to be addressed Licensed Pesticide Applicator Interventions [] Prayer [] Active listening [] Non-anxious presence [] Spiritual/emotional support [] Crisis/trauma care [] Spiritual counseling [] Bereavement support [] Provided bereavement packet [] Provided Bible/devotional materials [] Provided toy/stuffed animal, coloring book to patient or family member [] Provided Communion [] Anointing/Hasty [] Salvation [] Completed spiritual assessment [] Other: Impact on Illness or Injury [] Angry [] Fearful [] Anxious [] Often cries [] Exhaustion [] Unable to work [] Unable to attend mormon [] Unable to walk/stand [] Unable to read [] Unable to drive [] Unable to eat/drink [] Unable to sleep [] Unable to be with family [] Patient intubated [] Other: Summary Isolation covid Time spent with patient 5 mins
[2020-08-19 14:25] LABS: Coronavirus Test Green County Not Detected
--- NOTE | 2020-08-19 21:20 | USCV_ITS ---
Ilir Correa Age: 75 Gender: M : 1945 Exam Date: 08/19/2020 06:43 Ordering Phys: Anna Colby MD Technologist: Ratna Davalos Exam Location: [facility] [place] Indication: SYNCOPE, A FLUTTER BP: 111 / 58 HR: 52 Rhythm: Atrial flutter Technical Quality: Adequate MEASUREMENTS (Male / Female) Normal Values 2D ECHO LV Diastolic Diameter PLAX 4.7 cm 4.2 - 5.9 / 3.9 - 5.3 cm LV Systolic Diameter PLAX 3.0 cm IVS Diastolic Thickness 1.1 cm 0.6 - 1.0 / 0.6 - 0.9 cm IVS Systolic Thickness 2.0 cm LVPW Diastolic Thickness 1.4 cm 0.6 - 1.0 / 0.6 - 0.9 cm LVPW Systolic Thickness 1.6 cm LVOT Diameter 2.0 cm LV Ejection Fraction 2D Teich 64.3 % LV Ejection Fraction MOD 2C 70.9 % LV Ejection Fraction 2C AL 69.1 % LA Diameter 3.0 cm LA Width 3.9 cm LA Height 3.3 cm RA Width 5.1 cm RA Height 4.8 cm Aorta at Sinotubular Diameter 3.7 cm M-MODE LV Diastolic Diameter MM 5.8 cm 4.2 - 5.9 / 3.9 - 5.3 cm LV Systolic Diameter MM 3.5 cm LV Ejection Fraction MM Teich 69.0 % IVS Diastolic Thickness MM 0.9 cm 0.6 - 1.0 / 0.6 - 0.9 cm IVS Systolic Thickness MM 2.0 cm LVPW Diastolic Thickness MM 1.4 cm 0.6 - 1.0 / 0.6 - 0.9 cm LVPW Systolic Thickness MM 1.9 cm Aortic Annulus Diameter 3.0 cm LA Ao Ratio MM 1.1 MV E Point Septal Separation 0.4 cm DOPPLER AV Peak Velocity 94.0 cm/s LVOT Peak Velocity 75.0 cm/s AV Area Cont Eq vti 2.4 cm squared AV Area Cont Eq pk 2.5 cm squared MV Peak Velocity 293.0 cm/s MV Area PHT 2.5 cm squared MV E' Velocity 45.0 cm/s Mitral E to MV E' Ratio 7.3 Mitral E to LV E' Lateral Ratio 6.7 Mitral E to LV E' Septal Ratio 8.1 TR Peak Velocity 182.0 cm/s TR Peak Gradient 13.2 mmHg TV Peak E Velocity 54.0 cm/s Right Atrial Pressure 3.0 mmHg Pulmonary Artery Systolic Pressu 16.2 mmHg PV Peak Velocity 83.0 cm/s RV Acceleration Time 0.1 s RV Ejection Time 0.3 s RV AcT/ET 0.4 FINDINGS Left Ventricle Normal left ventricular cavity size. Normal left ventricular systolic function. No regional wall motion abnormalities. Left ventricular ejection fraction is estimated at 55 %. Grade II/IV diastolic dysfunction, moderately elevated filling pressures. Right Ventricle The right ventricle is normal in size and function. Right Atrium Moderately increased right atrial size. Left Atrium Mildly increased left atrial size. Mitral Valve Structurally normal mitral valve without significant stenosis or prolapse. There is no mitral regurgitation. Aortic Valve Structurally normal aortic valve without significant sclerosis or stenosis. There is no aortic regurgitation. Tricuspid Valve Structurally normal tricuspid valve without significant stenosis or regurgitation. Pulmonary artery systolic pressure is normal. Pulmonic Valve Structurally normal pulmonic valve without significant stenosis. There is no pulmonic regurgitation. Pericardium Normal pericardium without effusion. Aorta Normal ascending aorta dimension. CONCLUSIONS 1-Normal left ventricular cavity size. Normal left ventricular systolic function. No regional wall motion abnormalities. Left ventricular ejection fraction is estimated at 55 %. Grade II/IV diastolic dysfunction, moderately elevated filling pressures. 2-Moderately increased right atrial size. 3-Mildly increased left atrial size. 4-There is no pericardial effusion. 5-Pulmonary artery systolic pressure is within normal limits. 6-Right atrial pressure is around 5 mm of mercury. Julius Landis MD (Electronically Signed) Final Date: 19 August 2020 13:50 S
[2020-08-19] MEDS: enoxaparin 40 mg/0.4 mL Syringe SUBCUT (21:36)
--- NOTE | 2020-08-19 22:05 | USCV_ITS ---
SunnyIlir noyola Age: 75 Gender: M : 1945 Exam Date: 08/19/2020 06:26 Ordering Phys: Anna Colby MD Technologist: Ratna Davalos Exam Location: [facility] [place] Indication: SYNCOPE, A FLUTTER Risk Factors: Previous Vascular Surgery: Right Brachial BP: / Left Brachial BP: / Right Left Velocity (cm/s) Spectral Plaque Velocity (cm/s) Spectral Plaque Syst/Diast Broadening Syst/Diast Broadening 71.80/ 13.70 Prox CCA 88.10 / 14.80 104.20/20.50 Mid CCA 103.40/ 19.70 82.00/ 14.50 Distal CCA 86.50 / 19.80 131.50/15.80 Prox ICA 103.60/ 22.10 81.50/ 21.50 Mid ICA 77.80 / 25.30 59.20/ 15.10 Distal ICA 77.00 / 23.20 93.10 ECA 76.20 1.26 ICA/CCA 1.00 Antegrade Vertebral Antegrade 35.50/ 9.90 cm/s 52.80/ 12.40 cm/s Tri Subclavian Tri 116.9 102.2 0 0 CONCLUSIONS Right ICA stenosis 50-69%. Mild atheromatous plaque right carotid bulb/ICA. Left ICA stenosis <50%. Mild atheromatous plaque left carotid bulb/ICA. Normal antegrade Doppler flow noted in the right vertebral artery. Normal antegrade Doppler flow noted in the left vertebral artery. Ortega Stone MD (Electronically Signed) Final Date: 19 August 2020 17:00 S
--- NOTE | 2020-08-20 02:41 | PC.NURSE ---
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 BEBE Nielsen stated that the Aggrastat was to run at the rate of 16.9ml/hr for 2 hrs and be turned off at 0100. Aggrastat drip initiation was never documented in APR. 54: Aggrastat stopped. Around 0210: Recevied Critical lab values, PTT 193.9. Assessed patient, site asymptomatic, no bleeding or hematoma noted. Notifed Dr. Landis. Orders received, see orders.
[2020-08-20 04:00] VITALS: BP 91/53; PULSE 50; RESP 14; TEMP 36.6; O2SAT 98
[2020-08-20 05:50] LABS: Alanine Aminotransferase 11 U/L (0-41); Albumin Level 3.4 g/dL (3.5-5.2); Alkaline Phosphatase 42 IU/L (40-130); Aspartate Amino Transferase 17 U/L (0-40); Blood Urea Nitrogen 17 mg/dL (8-23); Calcium 8.1 mg/dL (8.5-10.5); Carbon Dioxide 26 mmol/L (22-29); Chloride 108 mmol/L (98-107); Globulin 1.9 g/dL (1.3-4.6); Glucose 89 mg/dL (65-115); Osmolality Calculated 291 mOsm/kg (285-295); Sodium 140 mmol/L (136-145); Total Bilirubin 0.6 mg/dL (0.15-1.2); Total Protein 5.3 g/dL (6.6-8.7)
[2020-08-20 06:00] VITALS: PULSE 48
--- NOTE | 2020-08-20 07:43 | P.PN_ITS ---
Vitals/I&O/Wt Last Vital Signs Temp 97.9 F 08/20/20 04:00 Pulse 50 L 08/20/20 04:00 Resp 14 08/20/20 04:00 BP 91/53 08/20/20 04:00 Pulse Ox 98 08/20/20 04:00 08/19/20 08/20/20 08/20/20 22:59 06:59 14:59 Intake Total 1400 / 2240 1000 / 3240 Output Total 400 / 1000 Balance 1000 / 1240 1000 / 2240 Weight last 48 hrs Weight 76.204 kg Weight 76.113 kg Weight 76.204 kg Data : 08/19/20 05:28 08/20/20 04:34 Coding Level of Care Code Acute Gallery Or Museum Guide for Lesli Hickey
[2020-08-20 08:00] VITALS: BP 96/56; PULSE 56; RESP 17; TEMP 36.6; O2SAT 98
--- NOTE | 2020-08-20 08:10 | PM.CONSULT ---
Providers/Reason For Consult Consulting Physician/Specialty*: DOROTEO Parsons MD/ Cardiology Reason for Consult*: Patient with a new onset of atrial fibrillation/bradycardia Attending Physician: Anna Colby MD Primary Care Provider: Charlie Sears MD History of Present Illness History of Present Illness Ilir Correa is a 75 year old male is admitted to the hospital with complaints of an episode of syncope and another episode of near syncope. He was found to be in atrial flutter/fibrillation at the time of admission. Currently he is in sinus bradycardia. Cardiology consult is requested for further cardiac evaluation recommendations. Patient has no previous history for any cardiac illness. He has a history of kidney stones and recently diagnosed, cell carcinoma of the ear. On the day of admission, he had an episode of syncope around 1:00 in the morning. Apparently the patient got up around this time to go to the bathroom. In the bathroom, he got dizzy and lightheaded. He had some blurred vision. This happened while he was at the commode. So he got up and walked versus bed. Apparently on his way, he passed out and fell to the floor. As he woke up, he found himself on the floor. Exactly how long he was on the floor is not known. He was feeling back to his baseline as he woke up. He got up and then went back to sleep at his bed. 2 hours later, he again got up to go to the bathroom. While being in the bathroom, he again had the same feeling of dizziness and feel like going to pass out. So he got up and then made it to the bed. This time, he didn't pass out. He didn't have any chest pain or palpitation prior to this event or following this event. No bladder or bowel incontinence. No seizure activities. No nausea vomiting. No other associated symptoms. Approximately 4 to 5 years ago, he had more or less similar symptoms of a near syncope. But he never had any complete loss of consciousness prior to this. In between these episodes, he has been doing okay. He walks around the town almost every day-3 to 4 miles a day. He is being followed by Dr. Brooks for his the kidney stones. No significant urological symptoms lately. He also has a history of fine tremor. He had a skin cancer removed recently from the right ear by the textile machinery instructor. He has no significant family history for coronary disease, cardiac arrhythmia or pacemaker implantation. He never knew that he had a slow heartbeat. In the emergency room, the patient was found to be in atrial flutter/fibrillation with a controlled ventricular response rate in the 80s. He spontaneously converted to sinus bradycardia. He has been staying in the sinus rhythm/bradycardia since hospital admission. His heart rate is around 45 most of the times. According the patient, he is back to his baseline. Review of Systems Narrative: CONSTITUTIONAL: No fever or chills. EYES: No blurring of vision or other visual disturbances lately. ENT: No hoarseness of voice, auditory disturbances or sore throat. CARDIOVASCULAR: As mentioned above. RESPIRATORY: No significant cough. GASTROINTESTINAL: No hematemesis or melena. GENITOURINARY: As mentioned above. INTEGUMENTARY: No skin rashes or history of skin cancer. NEURO: No transient ischemic attacks or amaurosis. PSYCHIATRIC: No history of psychosis or major depression. HEMATOLOGIC: No bleeding disorders or significant anemia. ENDOCRINE: No history of polyuria or polydipsia. Dermatology: Skin cancer removal as mentioned above MUSCULOSKELETAL: No recent joint pain or swelling. ALLERGY/IMMUNOLOGY: As mentioned above. Meds/Allergies Home Medications and Allergies Home Medications Medication Instructions Recorded Confirmed Last Taken Type utqwsnkk-gzs-WF-lycopen-lutein 1 tab PO DAILY 08/18/20 08/18/20 08/17/20 History [Centrum Silver Men] Allergies Allergy/AdvReac Type Severity Reaction Status Date / Time zoster vaccine live Allergy Mild ADR-Muscle Verified 06/17/20 09:38 [From Zostavax (PF)] Pain Current Medications Current Medications Generic Name Dose Route Start Last Admin Trade Name Freq PRN Reason Stop Dose Admin Enoxaparin Sodium 40 mg 08/18/20 21:30 08/19/20 21:36 Enoxaparin 40 Mg/0.4 Ml Syringe SUBCUT 40 mg Q24H LUIS Administration Methocarbamol 500 mg 08/18/20 21:40 08/19/20 21:37 Methocarbamol 500 Mg Tablet PO Not Given QID LUIS PFSH Acute PFSH: Medical History Bladder stone Gross hematuria History of herniated intervertebral disc Since he was at least 32years old. 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 It does not affect his life and he does not take any medications for it. 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 Urolithiasis Surgical History H/O lithotripsy ESWL History of tonsillectomy Family History Mother , AT AGE 90 Diabetes CHF (congestive heart failure) Father CHF (congestive heart failure) AT AGE 92 Brother Protein S deficiency Unknown No problems noted. Family/Other Protein S deficiency His brother w/ Protein S deficiency's 2 daughters (Patient's 2 nieces). One of the niece's 2 daughters. Social History Smoking and tobacco status: never smoked Alcohol intake: never Substance/Drug Use: never Marital status: Single Current occupational status: retired History of recent travel: No Vitals/I&O/Wt Last Vital Signs Temp 97.9 F 08/20/20 08:00 Pulse 56 L 08/20/20 08:00 Resp 17 08/20/20 08:00 BP 96/56 08/20/20 08:00 Pulse Ox 98 08/20/20 08:00 08/19/20 08/20/20 08/20/20 22:59 06:59 14:59 Intake Total 1400 / 2240 1000 / 3240 Output Total 400 / 1000 Balance 1000 / 1240 1000 / 2240 Weight last 48 hrs Weight 168 lb Weight 167 lb 12.8 oz Weight 168 lb Physical Exam Narrative: EXAM NARRATIVE: GENERAL: The patient is alert and oriented times three. Not in any acute distress. HEENT: No significant pallor, icterus or lymphadenopathy. The pupils are reactant to light. Oral cavity: There are no mucous membrane lesions. Funduscopic examination: The fundus is not visualized NECK: Trachea appears to be central. No masses noted. No JVD or thyromegaly appreciated. No carotid bruit. RESPIRATORY: Chest is symmetrical. No intercostals muscle retraction or any accessory muscle activation. There is no chest wall tenderness. Breath sounds are heard bilaterally. No rales or rhonchi heard. No evidence of any consolidation. BREASTS: Deferred. HEART: The PMI is in the 5th left intercostals space just inside the midclavicular line. No palpable precordial events. S1 and S2 are normal. No S3 or S4 heard. No pericardial rub or any click heard. ABDOMEN: No vessel pulsations or distention. No tenderness. No organomegaly appreciated. No abdominal bruit. Bowel sounds are normally heard. : Deferred. RECTAL: Deferred. LYMPHATIC: No lymphadenopathy noted in the neck or groin. EXTREMITIES: No edema or cyanosis. No clubbing. The pulses are symmetrical bilaterally. The radial, femoral, dorsalis pedis and the posterior tibial pulses are palpated and found to be in good volume and amplitude. MUSCULOSKELETAL: No acute joint deformities or swelling SKIN: Has bandages on the right ear pinna from the recent surgery NEUROPSYCHIATRIC: The patient is alert and oriented x3. Appears to be in a good mood. The higher functions are grossly within normal limits. No tremors or rigidity noted. Data Labs: Other Labs: Laboratory Last Values WBC 6.3 10^3/uL (4.0- 10.0) 08/19/20 05:28 RBC 4.08 10^6/uL (4.1 -5.3) L 08/19/20 05:28 Hgb 12.5 g/dL (11.7-1 6.6) 08/19/20 05:28 Hct 39.1 % (42.0-52.0 ) L 08/19/20 05:28 MCV 95.8 fL (80-94) H 08/19/20 05:28 MCH 30.6 pg (28.0-34. 0) 08/19/20 05:28 MCHC 32.0 g/dL (30.0-3 6.0) 08/19/20 05:28 RDW 13.9 % (12.1-15.1 ) 08/19/20 05:28 Plt Count 169 10^3/cmm (130 -400) 08/19/20 05:28 MPV 10.1 fL (7.4-10.4 ) 08/19/20 05:28 Neut % (Auto) 56.3 % 08/19/20 05:28 Lymph % (Auto) 35.3 % 08/19/20 05:28 Cottle % (Auto) 6.0 % 08/19/20 05:28 Eos % (Auto) 1.7 % 08/19/20 05:28 Baso % (Auto) 0.5 % 08/19/20 05:28 Neut # (Auto) 3.57 10^3/uL (1.8 -7.7) 08/19/20 05:28 Lymph # (Auto) 2.2 10^3/uL (0.8- 4.8) 08/19/20 05:28 Cottle # (Auto) 0.4 10^3/uL (0.2- 0.9) 08/19/20 05:28 Eos # (Auto) 0.1 10^3/uL (0.0- 0.8) 08/19/20 05:28 Baso # (Auto) 0.0 10^3/uL (0.0- 0.1) 08/19/20 05:28 Nucleated RBC % (a uto) 0 % 08/19/20 05:28 Nucleated RBCs # 0.0 /100WBC 08/19/20 05:28 PT 15.90 SECONDS (12 .1-14.9) H 08/19/20 05:28 INR 1.24 (0.8-1.2) H 08/19/20 05:28 APTT 36.5 SECONDS (23. 9-36.7) 08/19/20 05:28 D-Dimer <= 0.27 ug/mIFEU (0-0.59) 08/18/20 00:38 Sodium 140 mmol/L (136-1 45) 08/20/20 04:34 Potassium 4.0 mmol/L (3.5-5 .1) 08/20/20 04:34 Chloride 108 mmol/L (98-10 7) H 08/20/20 04:34 Carbon Dioxide 26 mmol/L (22-29) 08/20/20 04:34 Anion Gap 10.0 (5-19) 08/20/20 04:34 BUN 17 mg/dL (8-23) 08/20/20 04:34 Creatinine 0.6 mg/dL (0.7-1. 2) L 08/20/20 04:34 GFR Calculation Not Reportable 08/20/20 04:34 Glucose 89 mg/dL (65-115) 08/20/20 04:34 Estimat Average Gl ucose 97 08/20/20 04:34 Hemoglobin A1c 5.0 % (4.0-6.0) 08/20/20 04:34 Calculated Osmolal ity 291 mOsm/kg (285- 295) 08/20/20 04:34 Calcium 8.1 mg/dL (8.5-10 .5) L 08/20/20 04:34 Phosphorus 2.8 mg/dL (2.5-4. 5) 08/19/20 05:28 Magnesium 1.9 mg/dL (1.7-2. 3) 08/19/20 05:28 Total Bilirubin 0.6 mg/dL (0.15-1 .2) 08/20/20 04:34 AST 17 U/L (0-40) 08/20/20 04:34 ALT 11 U/L (0-41) 08/20/20 04:34 Alkaline Phosphata se 42 IU/L (40-130) 08/20/20 04:34 Creatine Kinase 92 U/L (39-308) 08/18/20 11:55 Troponin T Baselin e 19 ng/L (0-15) H 08/18/20 11:55 Troponin T 120 Min vu 17.10 ng/L (0-15) H 08/18/20 14:12 Delta Troponin T -1.90 ABS# (0-10) L 08/18/20 14:12 Troponin T Hi Sens 6Hr 13.01 ng/L (0-15) 08/18/20 17:57 Troponin T Hi Sens 6Hr Delta -5.99 ng/L (0-12) L 08/18/20 17:57 NT-Pro-B Natriuret Pep 325 pg/mL (0-125) H 08/19/20 05:28 Total Protein 5.3 g/dL (6.6-8.7 ) L 08/20/20 04:34 Albumin 3.4 g/dL (3.5-5.2 ) L 08/20/20 04:34 Globulin 1.9 g/dL (1.3-4.6 ) 08/20/20 04:34 Triglycerides 39 mg/dL (0-150) 08/19/20 05:28 Cholesterol 114 mg/dL (0-200) 08/19/20 05:28 LDL Cholesterol, C alc 51 mg/dL (50-129) 08/19/20 05:28 HDL Cholesterol 55 mg/dL (60-100) L 08/19/20 05:28 LDL/HDL Ratio 0.93 RATIO (0.00- 3.22) 08/19/20 05:28 Cholesterol/HDL Ra mikaela 2.07 mg/dL (1.0-5 .00) 08/19/20 05:28 Procalcitonin 0.02 ng/mL (0-0.5 ) 08/19/20 05:28 TSH 1.20 uIU/mL (0.27 -4.20) 08/18/20 11:55 Urine Color Yellow (Yellow) 08/18/20 12:07 Urine Appearance Clear (CLEAR) 08/18/20 12:07 Urine pH 5 (5-7) 08/18/20 12:07 Ur Specific Gravit y 1.025 (1.005-1.0 30) 08/18/20 12:07 Urine Protein 1+ (Negative) H 08/18/20 12:07 Urine Glucose (UA) Norm (Normal) 08/18/20 12:07 Urine Ketones Negative (Negati ve) 08/18/20 12:07 Urine Blood Neg (Negative) 08/18/20 12:07 Urine Nitrate Negative (Negati ve) 08/18/20 12:07 Urine Bilirubin Neg (Negative) 08/18/20 12:07 Urine Urobilinogen 1 mg/dL (Negative ) H 08/18/20 12:07 Ur Leukocyte Lisa ase Negative (Negati ve) 08/18/20 12:07 Nasal/Oral COVID-1 9 PCR Not detected 08/18/20 Unknown Imaging^: Echo: My impression: 1-Normal left ventricular cavity size. Normal left ventricular systolic function. No regional wall motion abnormalities. Left ventricular ejection fraction is estimated at 55 %. Grade II/IV diastolic dysfunction, moderately elevated filling pressures. 2-Moderately increased right atrial size. 3-Mildly increased left atrial size. 4-There is no pericardial effusion. 5-Pulmonary artery systolic pressure is within normal limits. 6-Right atrial pressure is around [address] Head: Radiologist's impression: 1. No evidence of intracranial hemorrhage or mass effect. 2. Mild small vessel changes. Mild parenchymal volume loss. 3. No acute intracranial findings. EKG^: EKG 1: My Interpretation: Atrial flutter/fibrillation with a controlled ventricular response rate of 80/min. No acute ST-T changes. EKG 4: My Interpretation: Sinus bradycardia with a rate of 50 bpm. Low voltage complexes in the limb leads. No acute ST-T changes. Normal QRS duration and QTC A&P Assessment and plan (1) Syncope: The etiology of the syncope is not clear. In view of the new onset of atrial fibrillation bradycardia, sinus node dysfunction causing the syncope is a strong consideration. His heart rate has been staying in the 40s most of the times. The CT of the head was unremarkable. No evidence of myocardial injury. Troponin T's were negative. No significant ischemic changes in the EKG. Echocardiogram was unremarkable except for some diastolic dysfunction. No significant wall motion normalities. Status: Acute Qualifiers: Syncope type: unspecified Qualified Code(s): R55 - Syncope and collapse (2) New onset atrial fibrillation: Patient spontaneously converted to sinus bradycardia. At this point, he may not require any specific intervention. He may be started on an aspirin enteric-coated 325 mg daily. According the patient, he has a tendency to bleed easily. Apart from the hematuria from kidney stones, he never had any bleeding episodes. Considering the possibility of coronary ischemia causing the arrhythmia, it may be appropriate to do a an exercise/sestamibi/sestamibi stress test to further evaluate. This was discussed with the patient detail which is understood well. Status: Acute (3) Sinus bradycardia: Patient may have sinus node dysfunction causing the sinus bradycardia. Sometime down the line, he may require a permanent pacemaker implantation. Since he has no documented symptomatic bradycardia arrhythmia at this point he may not require a pacemaker implantation at this time. Patient may be discharged home on an event monitor to evaluate for any symptomatic bradycardia. Status: Acute (4) Urolithiasis: Management as per Dr. Brooks. Status: Acute Qualifiers: Urinary calculus location: kidney Qualified Code(s): N20.0 - Calculus of kidney Additional A&P Information His other problems are history of squamous cell carcinoma history of fine tremor If the patient continues remain stable, may be discharged home from a cardiac standpoint. He may be scheduled for an exercise/sestamibi/sestamibi stress test as an outpatient. He also may be scheduled for an event monitor for 30 days as an outpatient. Thank you for the opportunity to eval this patient and make these recommendations Consult Attestations Medical Necessity Statement: If the patient continues remain stable, may be discharged home from a cardiac standpoint. He needs to have an exercise stress test(exercise/sestamibi/sestamibi stress test) and the event monitor(30 days) as an outpatient. Coding Level of Care Code Acute Fisher Dip Net for Lesli Hickey History Detailed Exam Detailed Medical Decision Making Moderate Complexity Diagnoses Syncope R55 Syncope type: unspecified New onset atrial fibrillation I48.91 Sinus bradycardia R00.1 Urolithiasis N20.0 Urinary calculus location: kidney
[2020-08-20 09:21] LABS: Estmated Average Glucose 97
[2020-08-20] MEDS: acetaminophen 325 mg Tablet 650 MG PO (09:41)
[2020-08-20] MEDS: aspirin 325 mg EC Tablet PO (10:24)
--- NOTE | 2020-08-20 10:49 | EV_ITS ---
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 Interpretive Statements Event monitor findings Period 08/20/2020 to 09/18/2020 Total events recorded 14 Manual 10 Auto triggered---------4 Monitored time: Diagnostic 96% Artifact 3% No data 1% The baseline rhythm was sinus bradycardia with a heart rate of 51 bpm. First-degree AV block. Symptoms mentioned with the recording----lightheadedness recorded on 08/31/2020 at 4 AM was found to be associated with atrial fibrillation rapid ventricular rate. Symptom of tired/fatigued recorded on 08/31/2020 at 7:18 AM was found to be associated with atrial fibrillation rapid ventricular rate of 141 bpm Arrhythmias recorded with the monitoring--atrial fibrillation with rapid ventricular rate, short runs of PAT's and nonsustained ventricular tachycardias. The atrial fibrillation accounted for 3% of the total heartbeats. Ventricular ectopics were less than 1% of total heartbeats. The supraventricular ectopics accounted for 1% the heartbeats. Bradycardic events -episodes of asymptomatic sinus bradycardia with a heart rate in the 50s were noted. 45% of the sinus beats were in the bradycardia range. 65% of the atrial fibrillation episodes were with a controlled ventricular response rate. 31% of the atrial fibrillation beats were in the rapid ventricular rate. Minimum heart rate recorded sinus bradycardia with a rate of 42 bpm Tachycardic events the tachycardia episodes were mostly found to be atrial fibrillation with rapid ventricular rate. Maximum heart rate recorded heart rate was 160 bpm, found to be atrial fibrillation with rapid ventricular rate Conclusion: 1. The baseline rhythm was found to be sinus bradycardia with a first-degree AV block, heart rate of 51 bpm. 2. The above-mentioned symptoms were found to be associated atrial fibrillation and rapid ventricular rate. Atrial fibrillation contributed to 3% the total heartbeats(18 hours and 51 minutes) 3. No previous similar studies, available for comparison Copies to Electronically Signed On 09-23-2020 9:51:02 CDT by Huseyin Parsons M.D. [email or web address]
[2020-08-20 11:44] VITALS: BP 96/56; PULSE 56; RESP 17; TEMP 36.6; O2SAT 98
--- NOTE | 2020-08-20 12:03 | PC.NURSE ---
discharge instructions given and explained.pt verb understanding of instructions .taken to [facility] for application of event monitor.
--- NOTE | 2020-08-20 13:00 | P.DS_ITS ---
Discharge Providers Date of Admission: 08/18/20 14:17 Date of Discharge: August 20, 2020 Attending Provider at Admission: Anna Colby MD Attending Provider at Discharge: Anna Colby MD Primary Care Provider: Charlie Sears MD Diagnoses at Discharge Discharge Diagnosis (1) Syncope: Status: Acute Qualifiers: Syncope type: unspecified Qualified Code(s): R55 - Syncope and collapse (2) New onset atrial fibrillation: Status: Acute (3) Sinus bradycardia: Status: Acute Reason for Visit Reason for Visit: syncope episode, sent from [facility] Course Hospital Course Ilir Correa is a 75yo man w/ Nephrolithiasis s/p Lithotripsy, Nocturia, and a hx of intention tremors, but on no medications except Centrum Multivitamin, who was referred from [facility] walk-in clinic to the ED on 08/18/2020, for an arrhythmia, after he presented to the walk-in clinic with complaints of syncope. The patient states that early this AM At 1am, he woke up as he usually does, to urinate, when he felt dizzy, hot from his head to his chest, and then became diaphoretic. He also complained of a static noise that he heard in his ears, but not tendinitis, ear fullness, ear pain, or ear discharge. He stated that he became more dizzy, and decided to go back to bed. The next thing he knew, he woke up on the floor. He does not think that he had any head trauma, but he does not know. Around 3:30 AM, patient again went to urinate. He felt the same symptoms again, and decided to return to bed. He made it back to bed, and did not lose consciousness. When he forgot this morning, he felt tired, generalized weakness, chest tightness, and with increased tremors in his hands. He also complained of shoulder and neck pain due to the fall. He went to [facility] walk-in clinic, where he was noted to have an irregular heartbeat, and was sent to the ED. He denies chest pain, palpitations, fever, chills, shortness of breath, coughing, wheezing, visual changes, abdominal pain, nausea, vomiting, diarrhea, constipation, melena, hematochezia, myalgias or arthralgias. He endorses having a good appetite, and states that he has lost weight intentionally. Regarding his sxs, he endorses nocturia varying from 2- 5x/night, terminal dribbling & occasional incomplete emptying. He denies dysuria, hematuria, increased urinary urgency & freq. He sees Urologist, Dr. Brooks for his Nephrolithiasis, and states that he has been informed by his Urologist that he does not have an enlarged prostate. 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 In the ED, he was in atrial flutter that ranged from 90-104. His CT head was negative for any acute intracranial hemorrhage or mass-effect. His CT C-spine was negative for any acute fractures or dislocations. CXR showed minimal interstitial change in both upper lobes concerning for chronic fibrotic change or mild pneumonia. A repeat CXR was recommended to be done in 2 to 3 days. He was started on 1 L NS & his Trop T was negative. His UA was negative for a UTI. His TSH was within normal limits. He was started on continuous. He was admitted for his syncope and new onset Aflutter. On admission he was in Normal sinus rhythm. On admission, his COVID-19 PCR test was negative. His TTE showed an EF of 55% with grade 2 diastolic dysfunction. Carotid US shows no carotid artery stenosis. LDL of 55. Orthostatic vitals on admission was negative. Call Person, Dr. Parsons, was consulted with whom he will follow up in clinic to follow up for a holter monitor and stress test. He was fitted with a holter monitor at discharge. He was placed on Aspirin at discharge. Of note, he has intention tremors and has never been on medication because it does not affect his quality of life. The repeat CXR suggested on admission, was not done at discharge. Will follow up and ensure the patient does the CXR as outpatient. Physical Exam Const: COMMON NORMALS: alert GENERAL APPEARANCE: cooperative and comfortable; not ill appearing ORIENTATION/CONSCIOUSNESS: Yes awake, Yes oriented to person, Yes oriented to place and Yes oriented to time Eye: COMMON NORMALS: Equal, round and reactive pupils present and conjunctivae normal CONJUNCTIVA: Yes conjunctivae normal PUPIL: Yes Equal, round and reactive pupils present EOM: No EOM abnormal Neck/C-Spine: COMMON NORMALS: Thyroid normal GENERAL: Yes trachea midline and Yes anterior neck swelling (L. sided) THYROID: Thyroid normal CAROTIDS: Yes normal carotid upstroke Resp: COMMON NORMALS: clear to auscultation bilaterally AUSCULTATION: clear to auscultation bilaterally, no crackles, no rales, no rhonchi and no wheezes Cardio: COMMON NORMALS: regular rate and regular rhythm RATE: regular rate RHYTHM: regular rhythm HEART SOUNDS: no click, no gallops, no murmurs and no rubs GI: COMMON NORMALS: Soft to palpation and No hepatosplenomegaly present INSPECTION: Yes normal to inspection AUSCULTATION: Yes normoactive bowel sounds PALPATION: Yes Soft to palpation, No Tenderness to palpation present (GI), No Guarding due to palpation present (GI), No Rigid due to palpation, Yes No hepatosplenomegaly present and No Rebound tenderness present Extremity: COMMON NORMALS: no clubbing, cyanosis or edema Neuro: SENSORIUM/ORIENTATION: Yes alert, Yes oriented to person, Yes oriented to place and Yes oriented to time CRANIAL NERVES: Yes CN normal except as noted COORDINATION/BALANCE: other (Intention tremors) SPEECH: speech normal GAIT: Yes Normal gait present SENSORY EXAM: Yes Normal double simultaneous stimulation for sensation MOTOR EXAM: 5/5 motor strength present throughout and Normal motor muscle tone present throughout COORDINATION: other (Intention tremors) Psych: COMMON NORMALS: Normal thought process present and speech normal ATTITUDE: Yes calm and Yes engaged ACTIVITY/MOTOR BEHAVIOR: Yes appropriate eye contact SPEECH: Yes normal speech MOOD & AFFECT: Yes euthymic mood THOUGHT PROCESS: Normal thought process present Skin: COMMON NORMALS: no rashes or lesions noted GENERAL SKIN EXAM: no rashes or lesions noted and other (Very tanned) Discharge Data Data Completed and Pending: Completed Studies During Hospitalization Category Date Time Status CT cervical spin wo con* [id number] Stat Cat Scan 08/18/20 13:[address] head wo con* 7 [id number] Stat Cat Scan 08/18/20 13:19 Completed XR chest 1V carlos a ble [id number] Stat Exams 08/18/20 11:38 Completed CV carotid duplex BI* [id number] Routine Ultrasound 08/19/20 22:05 Completed CV. echo complete * [id number] Routine Ultrasound 08/19/20 21:20 Completed Pending at discharge Category Date Time Status CA cardiac event monitor Routine Exams 08/20/20 10:49 Ordered Labs from last 24 hours 08/20/20 08/20/20 08/18/20 04:34 04:34 Unknown Sodium 140 Potassium 4.0 Chloride 108 H Carbon Dioxide 26 Anion Gap 10.0 BUN 17 Creatinine 0.6 L GFR Calculation Not Reportable Glucose 89 Estimat Average Gl ucose 97 Hemoglobin A1c 5.0 Calculated Osmolal ity 291 Calcium 8.1 L Total Bilirubin 0.6 AST 17 ALT 11 Alkaline Phosphata se 42 Total Protein 5.3 L Albumin 3.4 L Globulin 1.9 Nasal/Oral COVID-1 9 PCR Not detected Vitals: Last Vital Signs Temp 97.9 F 08/20/20 11:44 Pulse 56 L 08/20/20 11:44 Resp 17 08/20/20 11:44 BP 96/56 08/20/20 11:44 Pulse Ox 98 08/20/20 11:44 Discharge Plan Discharge Patient Disposition: Home Condition: Stable Prescriptions: New aspirin 325 mg Tablet,Delayed Release (Dr/Ec) 325 mg PO DAILY Qty: 90 RF: 0 Continued Centrum Silver Men 300-600-300 mcg Tablet 1 tab PO DAILY RF: 0 Discharge Orders: Discharge Order (Routine); Ordered 08/20/20 Ordered By: Anna Colby Referrals: Huseyin Parsons MD [Physician] - 2 weeks (Please follow-up with Dr. Parsons on September 02 at 10:45A.M. [facility] will call you to schedule an outpatient Lexiscan. If you haven't heard from them by Sunday. Please call ) Charlie Sears MD [Primary Care Provider] - 2 weeks (Please follow-up with Dr. Sears on September 03 at 1:45P.M. If you have any questions or need to reschedule. Please call ) Discharge Diet: Usual diet Discharge Activity: Resume usual activity and Increase activity as tolerated Patient Instructions: Aspirin (By mouth), Syncope, Atrial Fibrillation (DC), Hypotension (DC), Opioid Safety Activity Restrictions/Additional Instructions: Please schedule for the following tests as an outpatient exercise/sestamibi/sestamibi stress test as an outpatient. Dx New onset AFIB/ syncope 30-day event monitor as outpatient. DX Syncope Discharge Attestations Time Spent in Discharge Care*: less than 30 min Quality Metrics Clinical Quality Measures During this hospital stay, did patient experience: None Coding Level of Care Code Acute g FW IA note Diagnoses Syncope R55 Syncope type: unspecified New onset atrial fibrillation I48.91 Sinus bradycardia R00.1
--- NOTE | 2020-09-01 10:35 | PC.SOCIAL ---
[facility] sent message regarding stress test ordered at [place].Stress test orders were not put in the ambulatory section but as additional instructions. This will not work for an order. Called Dr Sears office since patient has appt 09/03/2020 per Sirena his nurse they will review with provider and if provider feels necessary will have it scheduled. Called [facility] to update them however, Per Ruby the order was received by Dr Parsons already and they have hiim scheduled. Called Darren Cheney back and provided update. Had left pt message will verify he knows date and time if he returns call.
== END 2020-08-20 11:40 | disposition home or self-care (01) | DRG 310 ==
LOC: ER 11:37 → ICU 16:27 → CSU 08-19 00:03
PROVIDERS: Admitting Provider Internal Medicine; Emergency Provider Family Medicine; PCP Family Medicine; Visit Provider Internal Medicine
DX: I48.91 Unspecified atrial fibrillation (principal); Z87.442 Personal history of urinary calculi; G25.2 Other specified forms of tremor; Z85.828 Personal history of other malignant neoplasm of skin; R35.1 Nocturia; I65.21 Occlusion and stenosis of right carotid artery; W19.XXXA Unspecified fall, initial encounter
CPT/HCPCS: 36415; 70450; 71045; 72125; 80053; 80061; 81003; 82550; 83036; 83735; 83880; 84100; 84145; 84443; 84484; 85025; 85378; 85610; 85730; 87635; 93005; 93271; 93306; 93880; 96372; 99285; J1650; J7030

== ENCOUNTER 2020-09-10 07:31 | Outpatient (CLI) | payer MEDICARE, BC, SELFPAY ==
[2020-09-10 07:52] VITALS: BMI 23.0
--- NOTE | 2020-09-10 07:53 | ECG_ITS ---
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 Baseline heart rate was 59 beats per minute. Baseline blood pressure was 134/44 millimeters of mercury. Target heart rate was 147 beats per minute. Maximum heart rate achieved was 127, which was 86 % of the target heart rate. Maximum blood pressure was 167/106 millimeters of mercury. Total exercise time was 6 minutes 57 sec. Maximum METs achieved was 7.0, maximum VO2 was 24.5. The reason for ending the test was maximum effort achieved. The patient complained of shortness of breath during the stress test, which then resolved at the end of the test. ELECTROCARDIOGRAM: BASELINE: Sinus bradycardia, right bundle branch block incomplete, normal axis, no significant ST-T changes at the baseline noted. EXERCISE: At the peak exercise level, no significant ST-T changes suggestive of ischemia noted. RECOVERY: During the recovery period, heart rate dropped appropriately. No significant ST-T changes in the recovery suggestive of ischemia noted. CONCLUSION: 1. Exercise capacity fair. 2. Heart rate response was appropriate. 3. Blood pressure response was appropriate. 4. Symptoms not suggestive of ischemia. 5. Electrocardiogram portion of the stress test was not suggestive of ischemia. 6. Nuclear scan will be documented separately. Electronically Signed On 09-14-2020 17:56:08 CDT by DIOGENES MATTHEW [id number]
--- NOTE | 2020-09-10 07:56 | NMCV_ITS ---
NM george perf SPECT r/s* [id number] Ilir Correa Age: 75 Gender: M : 1945 Exam Date: 09/10/2020 08:36 Ordering Phys: Huseyin Parsons MD ([email or web address]) Technologist: BEST Landin Exam Location: [facility] Indications: A FIB BRADYCARDIA STRESS TEST Please see separate stress test report in [facility]any for full findings IMAGE PROTOCOL Rest/Stress 1 Exercise Day Radiopharmaceutical Dose (mCi) Administration Site Administered by Rest: Tc-99m 10.8 IV BEST Landin Sestamibi Stress:Tc-99m 31.9 IV BEST Shabazz Sestamibi Rest: 10-Sep-2020 60 Discovery 630 Stress: 10-Sep-2020 15 Discovery 630 Radiopharmaceutical was injected at 85 % maximum heart rate. Images obtained in supine and prone position. SPECT RESULTS Technical Quality: Excellent Raw Data Analysis: Normal Image Corrections: No attenuation or motion correction applied Summed Stress Score: 1 Summed Rest Score: 2 Summed Difference Score: 1 PERFUSION FINDINGS A very small area of decreased tracer uptake was noted in the apical lateral and LV apex. No significant reversibility was noted in this region FUNCTIONAL RESULTS (calculated via Gated SPECT) Stress Image LV EF (%): 58 Stress EDV (mL):127 TID: 0.96 Stress ESV (mL):53 FUNCTIONAL FINDINGS: LV wall motion analysis revealing no gross wall motion normalities. IMPRESSIONS 1. Myocardial perfusion imaging revealing small area of persistent decreased tracer uptake in the apical lateral and LV apex, suggestive of myocardial scarring versus attrition artifact. 2. Normal LV ejection fraction 58%. 3. LV wall motion analysis revealing mild diffuse hypokinesia of the septum. 4. Mildly dilated LV cavity with an end-systolic volume of 53 ml. No significant coronary ischemia, based on the above finding Dr Huseyin Parsons MD FACC (Electronically Signed) Final Date: 12 September 2020 20:53 S
[2020-09-10 09:37] VITALS: BP 128/84; PULSE 63
== END 2020-09-10 07:32 | disposition home or self-care (01) ==
PROVIDERS: PCP Family Medicine; Visit Provider Internal Medicine Cardiovascular Disease
DX: R55 Syncope and collapse (principal); I48.91 Unspecified atrial fibrillation; R00.1 Bradycardia, unspecified
CPT/HCPCS: 78452; 93017; A9500

== ENCOUNTER 2020-09-23 08:55 | Outpatient (CLI) | payer MEDICARE, BC, SELFPAY ==
--- NOTE | 2020-09-23 09:00 | XR_ITS ---
WS: [id number] KUB, AP view, 09/23/2020 Clinical Data: urolithiasis Comparison: KUB, 09/24/2019. Findings: No abnormal intraabdominal masses or calcifications are seen. There is no dilatated small bowel or ev idence of obstruction. A large amount of fecal material and colon gas obscure detail over both kidneys. Although there may b e left renal calculi, detail is obscured. XR/XR KUB 55738 Impression: Large amount of fecal material obscures detail over both kidneys.
== END 2020-09-23 08:56 | disposition home or self-care (01) ==
LOC: RAD 08:57
PROVIDERS: PCP Family Medicine; Visit Provider Urology
DX: N20.9 Urinary calculus, unspecified (principal)
CPT/HCPCS: 74018; 81003

== ENCOUNTER 2020-09-24 12:25 | Outpatient (CLI) | payer MEDICARE, BC, SELFPAY ==
[2020-09-24 12:57] LABS: Basophils % 0.7 %; Eosinophils # 0.3 10^3/uL (0.0-0.8); Eosinophils % 4.4 %; Hematocrit 36.8 % (42.0-52.0); Hemoglobin 11.7 g/dL (11.7-16.6); Lymphocytes # 1.7 10^3/uL (0.8-4.8); Lymphocytes % 29.2 %; Mean Corpuscular HGB Conc 31.8 g/dL (30.0-36.0); Mean Corpuscular Hemoglobin 30.7 pg (28.0-34.0); Mean Corpuscular Volume 96.6 fl (80-94); Monocytes # 0.4 10^3/uL (0.2-0.9); Monocytes % 6.7 %; Neutrophils # 3.51 10^3/uL (1.8-7.7); Neutrophils % 58.8 %; Nucleated Red Blood Cells % 0 %; Platelet Count 212 10^3/cmm (130-400); Red Blood Count 3.81 10^6/uL (4.1-5.3); Red Cell Distribution Width 13.7 % (12.1-15.1)
[2020-09-24 14:25] LABS: INR 1.04 (0.83-1.21); Prothrombin Time (Patient) 13.9 Seconds (12.0-15.1)
== END 2020-09-24 12:26 | disposition home or self-care (01) ==
PROVIDERS: PCP Family Medicine; Visit Provider Internal Medicine Cardiovascular Disease
DX: I48.92 Unspecified atrial flutter (principal); I48.91 Unspecified atrial fibrillation
CPT/HCPCS: 85025; 85610

== ENCOUNTER → 2020-10-26 08:59 | Outpatient (BNVA) | payer MEDICARE, BC, SELFPAY | PROVIDERS: PCP Family Medicine; Visit Provider Internal Medicine Cardiovascular Disease | DX: I48.91 Unspecified atrial fibrillation (principal); I48.92 Unspecified atrial flutter; R00.1 Bradycardia, unspecified | CPT/HCPCS: 85025 ==

== ENCOUNTER → 2020-11-04 09:25 | Outpatient (BNVA) | payer MEDICARE, BC, SELFPAY | PROVIDERS: PCP Family Medicine; Visit Provider Urology | DX: N40.1 Benign prostatic hyperplasia with lower urinary tract symptoms (principal); Z12.5 Encounter for screening for malignant neoplasm of prostate; N20.0 Calculus of kidney; Z80.42 Family history of malignant neoplasm of prostate | CPT/HCPCS: 81003; G0103 ==

== ENCOUNTER → 2021-01-14 14:22 | Outpatient (BNVA) | payer MEDICARE, BC, SELFPAY | PROVIDERS: PCP Family Medicine; Visit Provider Surgery | DX: C43.9 Malignant melanoma of skin, unspecified (principal); Z20.822 Contact with and (suspected) exposure to COVID-19 | CPT/HCPCS: 87635 ==

== ENCOUNTER 2021-01-19 07:51 | Day surgery (SDC) | payer MEDICARE, BC, SELFPAY ==
[2021-01-18 11:33] VITALS: BMI 23.8
[2021-01-19] VITALS (8 sets, daily range): BP systolic 106–138; BP diastolic 48–76; PULSE 60–71; RESP 8–18; TEMP 35.5–36.7; O2SAT 96–100
--- NOTE | 2021-01-19 07:51 | NM_ITS ---
WS: [id number] SENTINEL NODE TECHNIQUE: Neck sentinel node injection CLINICAL INFORMATION: Wide local incision w/sentinode biopsy of neck COMPARISON: None. PROCEDURE: The procedure including risks, benefits, and complications were discussed; the patient agr eed to proceed. Patient was prepped and draped in usual sterile fashion. Subsequently, 1% lidocaine p reservative-free was administered at the 12:00, 3:00, 6:00, and 9:00 o'clock positions for local anes thesia. Subsequently, 4 aliquots of filtered technetium 99m sulfur colloid was injected into the subc utaneous soft tissues. A total dose of 1.08 mCi was administered. [place] lymph node was localized a nd marked in the anterior right neck Patient tolerated the procedure well with no immediate complications. NM/NM lymphatics/lymph node [id number] IMPRESSION: 1. Uncomplicated dorsal neck sentinel node injection with a total dose of 1.08 mCi. 2. The sentinel lymph node was localized and marked in the anterior right neck
--- NOTE | 2021-01-19 08:02 | W.PM.OPSUD ---
Surgery/Procedure H&P Update DATE OF PROCEDURE: January 19, 2021 DATE H&P PERFORMED: 01/11/21 H&P UPDATE INFORMATION: I have reviewed H&P completed within last 30 days, I have examined patient prior to procedure and No changes to prior documentation PREOP DIAGNOSIS: Malignant melanoma right side of neck PLANNED PROCEDURE: Operation Date: 01/19/21 10:10 Proposed Procedures p Wide Local Incision w/ Sentinal Lymph Node Biopsy [id number] 04150 23170 C43.9(Not Applicable) - Chu Figueroa MD s Excision Mass neck(Not Applicable) - Chu Figueroa MD
--- NOTE | 2021-01-19 08:10 | PC.NURSE ---
PATIENT TO NUCLEAR MEDICINE VIA W/C AND STAFF
--- NOTE | 2021-01-19 08:28 | PC.NURSE ---
Patient injected with 1.08 mCi Tc99m Filtered Sulfur Colloid on right posterior neck at [address] Roderick Stone. Imaging to follow for sentinel node mapping.
--- NOTE | 2021-01-19 10:49 | ANES.PREANE2 ---
Pre-Anesthetic Assessment Pre-Anesthetic Assessment: Height/Weight: Height 1.83 m Weight 79.832 kg Temp Pulse Resp BP Pulse Ox 97.6 F 68 18 138/76 99 01/19/21 08:04 01/19/21 08:04 01/19/21 08:04 01/19/21 08:04 01/19/21 08:04 Preop Diagnosis: Malignant melanoma right side of neck Proposed Procedure: Operation Date: 01/19/21 10:10 Proposed Procedures p Wide Local Incision w/ Sentinal Lymph Node Biopsy [id number] 77905 72691 C43.9(Not Applicable) - Chu Figueroa MD s Excision Mass neck(Not Applicable) - Chu Figueroa MD Was Beta Say taken within 24 hours: N/A Was Clonidine taken within 24 hours: N/A Last intake: Intake Last Liquid Date 01/18/21 Last Liquid Time 21:00 Last Solid Date 01/18/21 Last Solid Time 17:00 Social: Social History: No alcohol and No tobacco Exam: Pre-Anes Outpt Exam: alert, oriented x 3, clear to auscultation bilaterally and regular rate & rhythm Airway: Submandibular: WNL Cervical ROM: WNL MP: 2 Dentition: Full CV/HEM: CV/HEM: Afib (A.flutter) and PVD Neuropsych: Neuropsych: Syncope Anesthetic Plan: ASA status: 3 Anesthesia: General Risk of > 500 ml blood loss (7ml/kg in children): No PFSH Anesthesia PFSH: Medical History (Updated 01/11/21 @ 11:48 by Chu Figueroa MD) Atrial flutter, paroxysmal BPH loc w urin obs/LUTS History of herniated intervertebral disc Since he was at least 32years old. 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 It does not affect his life and he does not take any medications for it. 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 Urolithiasis Surgical History H/O lithotripsy ESWL History of tonsillectomy Family History Mother , AT AGE 90 Diabetes CHF (congestive heart failure) CAD (coronary artery disease) Father CHF (congestive heart failure) AT AGE 92 CAD (coronary artery disease) Dementia Brother Protein S deficiency Unknown No problems noted. Family/Other Protein S deficiency His brother w/ Protein S deficiency's 2 daughters (Patient's 2 nieces). One of the niece's 2 daughters. Bleeding disorder Clotting disorder Denies family history of Suicide Anesthesia complication Lung disease Cancer Stroke Social History Alcohol intake: never Marital status: Single Current occupational status: retired History of recent travel: No Data Anesthesia Cardiac Studies: Echocardiogram 08/19/20 Cardiac Event Monitor 08/20/20
[2021-01-19] MEDS: sodium chloride 0.9% 1,000 ML 30 ML IV (11:06)
[2021-01-19] MEDS: lidocaine 1% INJ 20 mL SUBCUT (11:59)
--- NOTE | 2021-01-19 13:51 | PM.OP ---
Operative Report Date of procedure: January 19, 2021 Pre-op Diagnosis: Malignant melanoma right side of the neck Breslow thickness 1.4 mm Post-op diagnosis: same Procedure Done: 1. Wide local excision of malignant melanoma right posterior neck 2. Intermediate closure of wound measuring 4 x 7 x 1.5 cm 3. Right cervical sentinel lymph node biopsy Pathology: 1. Wide local excision from right upper back- short stitch superior, long stitch anterior 2. Right cervical sentinel lymph node biopsy Surgeon: Chu Figueroa Sail Repair Person: Lasha Anthony Anesthesia: General Condition: stable Disposition: PACU Procedure: The patient was taken to the operating room and placed in the left lateral position under general anesthesia after IV antibiotic had been administered. The area around the malignant melanoma on the right side of the posterior neck was prepped and draped in a sterile manner. A 2 cm margin was marked bilaterally at the site of prior excision of the melanoma. A 7 cm long elliptical oblique incision was made using a 15 blade, subcutaneous tissue was divided using electrocautery down to the muscular fascia and the specimen was excised entirely. Short stitch was placed superiorly and a long stitch was placed anteriorly using 2-0 silk suture. This resulted in a wound measuring 4 x 7 x 1.5 cm. The wound was irrigated with saline, hemostasis ensured and the subcutaneous tissues were closed in layers using interrupted 3-0 Vicryl suture and skin was closed using running subcuticular 4-0 Monocryl suture and Dermabond. A technetium sulfur colloid had been injected previously by the radiologist at the site of the melanoma and the location of the sentinel lymph node was marked anteriorly on the right side of the neck. A skin incision was made using a 15 blade over the marking medial to the external jugular vein, subcutaneous tissue was divided using electrocautery. I was unable to identify the sentinel node and therefore Dr. Anthony joined me to assist with the case. The visualization was poor in the left lateral position and therefore the patient was placed in the supine position and skin incision was extended inferiorly, subcutaneous was divided and the sternocleidomastoid muscle was divided until the cervical lymph nodes were identified which was radioactive. The lymph nodes were dissected free using bipolar cautery. There was no other significant radioactive lymph nodes identified in the surgical bed. The wound was irrigated with saline, the sternocleidomastoid muscle fibers were approximated using 4-0 chromic sutures and the subcutaneous tissues were approximated using running 4-0 chromic suture and skin was closed using running subcuticular 4-0 Monocryl suture and Dermabond. 1% lidocaine with 0.5% Marcaine was infiltrated around the incision. Pressure dressings were applied. The patient was extubated and transferred to recovery room in stable condition.
--- NOTE | 2021-01-19 14:13 | ANE.PACU2 ---
Inpatient post-anesthesia follow up: Airway intact: Yes Vital signs: Temperature 97.7 F Pulse Rate 64 Respiratory Rate 16 Blood Pressure 109/67 Pulse Oximetry 96 Oxygen Delivery Me thod Room Air Oxygen Flow Rate 10 Fraction of Inspir ed Oxygen Hydration adequate: Yes Nausea and vomiting: No Pain level: 1 Mental status: Baseline
== END 2021-01-19 15:02 | disposition home or self-care (01) ==
PROVIDERS: PCP Family Medicine; Visit Provider Surgery
PROC: (CPT 11626; principal; 2021-01-19 10:10)
PROC: (CPT 11626; 2021-01-19 10:10)
DX: C43.4 Malignant melanoma of scalp and neck (principal); I48.91 Unspecified atrial fibrillation; N40.1 Benign prostatic hyperplasia with lower urinary tract symptoms; N13.8 Other obstructive and reflux uropathy; Z82.49 Family history of ischemic heart disease and other diseases of the circulatory system; Z83.3 Family history of diabetes mellitus
CPT/HCPCS: 11626; 12042; 38510; 78195; 88304; 88305; A9541; J0690; J1100; J2405; J2704; J2710; J3010; J3490; J7030

== ENCOUNTER 2021-03-25 09:22 | Outpatient (CLI) | payer MEDICARE, BC, SELFPAY ==
--- NOTE | 2021-03-25 08:45 | XR_ITS ---
WS: [id number] Chest 2 views, 03/25/2021 Clinical Data: history of melanoma Comparison: Portable chest, 08/18/2020. Findings: The aortic arch and descending thoracic aorta show mild tortuosity. The pulmonary vasculari ty is not increased. No pneumonia or pneumothorax is seen. No nodules, masses or effusions are seen. There is a dextroscoliosis of the thoracic spine. XR/XR chest 2V* [id number] Impression: Atherosclerosis.
== END 2021-03-25 09:23 | disposition home or self-care (01) ==
LOC: RAD 09:26
PROVIDERS: PCP Family Medicine; Visit Provider Dermatology
DX: Z85.820 Personal history of malignant melanoma of skin (principal); I70.90 Unspecified atherosclerosis
CPT/HCPCS: 71046

== ENCOUNTER → 2021-05-18 09:40 | Outpatient (BNVA) | payer MEDICARE, BC, SELFPAY | PROVIDERS: PCP Family Medicine; Visit Provider Nurse Practitioner Family | DX: I48.92 Unspecified atrial flutter (principal); R55 Syncope and collapse; Z79.01 Long term (current) use of anticoagulants | CPT/HCPCS: 99214 ==

== ENCOUNTER 2021-07-26 12:51 | Outpatient (CLI) | payer MEDICARE, BC, SELFPAY | END 2021-07-26 12:52 | disposition home or self-care (01) | LOC: RAD 12:54 | PROVIDERS: PCP Family Medicine; Visit Provider Internal Medicine Cardiovascular Disease | DX: I48.92 Unspecified atrial flutter (principal); R00.1 Bradycardia, unspecified; I65.23 Occlusion and stenosis of bilateral carotid arteries; I34.0 Nonrheumatic mitral (valve) insufficiency; I07.1 Rheumatic tricuspid insufficiency; I77.819 Aortic ectasia, unspecified site | CPT/HCPCS: 93306; 99213; 99214 ==

== ENCOUNTER → 2021-08-09 14:47 | Outpatient (BNVA) | payer MEDICARE, BC, SELFPAY | PROVIDERS: PCP Family Medicine; Visit Provider Internal Medicine Cardiovascular Disease | DX: R55 Syncope and collapse (principal); I49.1 Atrial premature depolarization; I49.3 Ventricular premature depolarization; I47.1 Supraventricular tachycardia | CPT/HCPCS: 93229 ==

== ENCOUNTER 2021-08-23 08:02 | Outpatient (CLI) | payer MEDICARE, BC, SELFPAY ==
--- NOTE | 2021-08-23 08:00 | XR_ITS ---
WS: [id number] XR KUB [id number] REASON FOR EXAM: Urolithiasis FINDINGS: Colon contents obscure both kidneys. There may be several small calculi within the left kidney however this is equivocal. No ureteral or bladder calculi are identified. XR/XR KUB [id number] IMPRESSION: No definite urinary tract calculi. Possibly several small calculi in the left k idney.
== END 2021-08-23 08:03 | disposition home or self-care (01) ==
PROVIDERS: PCP Family Medicine; Visit Provider Urology
DX: N20.9 Urinary calculus, unspecified (principal); N40.1 Benign prostatic hyperplasia with lower urinary tract symptoms; N20.0 Calculus of kidney; R35.1 Nocturia
CPT/HCPCS: 51798; 74018; 81003; 99213

== ENCOUNTER → 2022-01-31 15:30 | Outpatient (BNVA) | payer MEDICARE, BC, SELFPAY | PROVIDERS: PCP Family Medicine; Visit Provider Internal Medicine Cardiovascular Disease | DX: I48.92 Unspecified atrial flutter (principal); I47.29 Other ventricular tachycardia; R00.1 Bradycardia, unspecified; Z79.01 Long term (current) use of anticoagulants | CPT/HCPCS: 99214 ==

== ENCOUNTER → 2022-05-29 13:46 | Outpatient (BNVA) | payer MEDICARE, BC, SELFPAY | PROVIDERS: PCP Family Medicine; Visit Provider Nurse Practitioner Family | DX: I48.92 Unspecified atrial flutter (principal); Z79.01 Long term (current) use of anticoagulants | CPT/HCPCS: 99213 ==

== ENCOUNTER → 2022-06-12 10:38 | Outpatient (BNVA) | payer MEDICARE, BC, SELFPAY | PROVIDERS: PCP Family Medicine; Visit Provider Nurse Practitioner Family | DX: L81.4 Other melanin hyperpigmentation (principal); D22.5 Melanocytic nevi of trunk; Z71.89 Other specified counseling; L85.3 Xerosis cutis; L57.8 Other skin changes due to chronic exposure to nonionizing radiation; B07.8 Other viral warts; L57.0 Actinic keratosis | CPT/HCPCS: 17000; 17003; 17110; 99213 ==

== ENCOUNTER → 2022-07-11 10:18 | Outpatient (BNVA) | payer MEDICARE, BC, SELFPAY | PROVIDERS: PCP Family Medicine; Visit Provider Nurse Practitioner Family | DX: L57.0 Actinic keratosis (principal); L81.4 Other melanin hyperpigmentation; D22.5 Melanocytic nevi of trunk; Z71.89 Other specified counseling; L85.3 Xerosis cutis; L57.8 Other skin changes due to chronic exposure to nonionizing radiation; B07.8 Other viral warts | CPT/HCPCS: 17000; 17110; 99213 ==

== ENCOUNTER 2022-08-13 14:00 | Inpatient (IN) | payer MEDICARE, BC, SELFPAY ==
[2022-08-13] VITALS (7 sets, daily range): BP systolic 104–163; BP diastolic 70–82; PULSE 51–66; RESP 12–20; TEMP 36.3–36.9; O2SAT 95–99; BMI 23.7
--- NOTE | 2022-08-13 14:53 | ECG_ITS ---
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 Measurements Intervals [place] Rate: 56 P: 0 MS: 264 QRS: 33 QRSD: 110 T: 47 QT: 437 QTc: 422 Interpretive Statements SINUS BRADYCARDIA WITH FIRST DEGREE AV BLOCK INCOMPLETE RIGHT BUNDLE BRANCH BLOCK [90+ ms QRS DURATION, TERMINAL R IN V1/V2, 40+ ms S IN I/aVL/V4/V5/V6] Compared to ECG 08/19/2020 05:45:29 First degree AV block now present Electronically Signed On 08-14-2022 8:11:20 CDT by John El M.D. [email or web address]
--- NOTE | 2022-08-13 15:08 | CTR_ITS ---
PROCEDURE INFORMATION: Exam: CT Head Without Contrast Exam date and time: 08/13/2022 3:14 PM Age: 77 years old Clinical indication: Stroke-like symptoms; Ataxia TECHNIQUE: Imaging protocol: Computed tomography of the head without contrast. Radiation optimization: All CT scans at this facility use at least one of these dose optimization techniques: automated exposure control; mA and/or kV adjustment per patient size (includes targeted exams where dose is matched to clinical indication); or iterative reconstruction. Other technique: STROKE PROTOCOL was implemented. REPORTING DATA: Count of CT and Cardiac NM exams in prior 12 months: This patient has received 0 known CTs and 0 known cardiac nuclear medicine studies in the 12 months prior to the current study. COMPARISON: CT head wo con* [id number] 08/18/2020 1:41 PM RADIATION DOSE METRICS: Total DLP (mGy-cm): 1096.88 FINDINGS: Brain: No hemorrhage. No edema. Mild diffuse cerebral atrophy. No significant white matter disease. No mass effect. Cerebral ventricles: No ventriculomegaly. Paranasal sinuses: Visualized sinuses are unremarkable. No fluid levels. Mastoid air cells: Visualized mastoid air cells are well aerated. Bones/joints: Unremarkable. No acute fracture. Soft tissues: Unremarkable. CT/CT head thrombolytic [id number] IMPRESSION: No acute intracranial abnormality. ASSESSMENT: ASPECTS ([place] Stroke Program Early CT Score) is 10.
--- NOTE | 2022-08-13 15:10 | W.ED.DIZZY ---
HPI - Dizziness General: Chief Complaint: Dizziness Stated Complaint: Dizzy, Weakness, states he may have afib Time Seen by Provider: 08/13/22 14:51 History of Present Illness: HPI Narrative: This patient is a 77 year old presenting with sudden onset dizziness about 30 minutes prior to arrival (14:30). He had been sitting and putting eye drops in his eyes (lubricant, no medication) and then stood up. When he stood up he had abrupt onset of dizziness and was not able to walk. On my evaluation he is still having some symptoms but not as severe. He denies any other symptoms. He has a fib and Dr. Parsons told him to come in for anything like this so he did. He is on Eliquis and took a dose this morning. He is normally well controlled. He has never had a stroke but knows he is at risk for it. PFS ED PFSH: Medical History Atrial flutter, paroxysmal BPH loc w urin obs/LUTS Family history of malignant melanoma History of herniated intervertebral disc Since he was at least 32years old. History of malignant melanoma Intention tremor Has had this for over 25years. It does not affect his life and he does not take any medications for it. 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 Urolithiasis Surgical History H/O lithotripsy ESWL H/O melanoma excision (01/19/21) Wide local excision with sentinel lymph node biopsy History of tonsillectomy Family History Mother , AT AGE 90 Diabetes CHF (congestive heart failure) CAD (coronary artery disease) Father CHF (congestive heart failure) AT AGE 92 CAD (coronary artery disease) Dementia Brother Protein S deficiency Unknown No problems noted. Family/Other Protein S deficiency His brother w/ Protein S deficiency's 2 daughters (Patient's 2 nieces). One of the niece's 2 daughters. Bleeding disorder Clotting disorder Denies family history of Suicide Anesthesia complication Lung disease Cancer Stroke Social History Smoking and tobacco status: never smoked Alcohol intake: never Substance/Drug Use: never Marital status: Single Current occupational status: retired Physical Exam Const: COMMON NORMALS: no acute distress and no limitations GENERAL APPEARANCE: cooperative and comfortable HENMT: HEAD & SCALP: normal to inspection FACE & SINUS: normal facial exam Eye: GENERAL EYE: appearance normal, both eyes and all related structures Neck/C-Spine: COMMON NORMALS: supple and no JVD Chest: COMMONS NORMALS: normal inspection of the chest Resp: COMMON NORMALS: normal respiratory effort, No use of accessory muscles and clear to auscultation bilaterally AUSCULTATION: clear to auscultation bilaterally Cardio: COMMON NORMALS: no JVD, regular rate, regular rhythm and No murmurs present (Cardio) RATE: regular rate RHYTHM: regular rhythm GI: COMMON NORMALS: Normal to inspection, nondistended, normoactive bowel sounds present, Soft to palpation and non-tender INSPECTION: Yes normal to inspection AUSCULTATION: Yes normoactive bowel sounds PALPATION: Yes Soft to palpation Back/Pelvis: COMMON NORMALS: thoracic and lumbar spine normal to inspection Extremity: COMMON NORMALS: normal to inspection Neuro: CRANIAL NERVES: Yes CN normal except as noted COORDINATION/BALANCE: No [id number]-[id number] test normal (mild ataxia of the right leg), Romberg test negative, Normal rapid alternating movements of the distal upper extremity present (Neuro) and Normal rapid alternating movements of the distal lower extremity present (Neuro) SPEECH: speech normal GAIT: Yes Other gait observations present (falls to the right with trying to ambulate) MOTOR EXAM: Abnormal motor strength present (4/5 strength right lower extremity) COORDINATION: [id number] test abnormal (mild ataxia of the right leg), rapid alternating movement UE normal and rapid alternating movement LE normal Psych: COMMON NORMALS: mental status grossly normal, cooperative and normal affect Skin: COMMON NORMALS: no rashes or lesions noted and turgor normal GENERAL SKIN EXAM: no rashes or lesions noted and turgor normal Course Vital Signs: Vital signs: Vital Signs Temperature 98.4 F 08/13/22 14:04 Pulse Rate 51 L 08/13/22 18:26 Respiratory Rate 12 08/13/22 18:26 Blood Pressure 145/79 08/13/22 18:26 Pulse Oximetry 99 08/13/22 18:26 Oxygen Delivery Me thod Room Air 08/13/22 18:26 MDM - Dizziness Medical Decision Making Stroke alert called - however patient is on Eliquis and had a dose less than 12 hours ago so not a candidate for TPA. His NIHSS is only 2 and might not have been a candidate anyway based on that low score. CT neg. Discussed with neurology at [facility] and he recommends admission for expedited workup for stroke. Permissive hypertension, hold Eliquis for a day or two, MRI possibly tomorrow. Patient understands and agrees with plan of care. Lab Data 08/13/22 15:50 08/13/22 15:[address] 08/13/22 15:08 IMPRESSION: No acute intracranial abnormality. ASSESSMENT: ASPECTS ([place] Stroke Program Early CT Score) is 10. Laboratory Results WBC 6.9 10^3/uL (4.0-10.0) 08/13/22 15:50 RBC 4.56 10^6/uL (4.1-5.3) 08/13/22 15:50 Hgb 14.0 g/dL (11.7-16.6) 08/13/22 15:50 Hct 43.9 % (42.0-52.0) 08/13/22 15:50 MCV 96.3 fl (80-94) H 08/13/22 15:50 MCH 30.7 pg (28.0-34.0) 08/13/22 15:50 MCHC 31.9 g/dL (30.0-36.0) 08/13/22 15:50 RDW 13.4 % (12.1-15.1) 08/13/22 15:50 Plt Count 199 10^3/cmm (130-400) 08/13/22 15:50 MPV 9.5 fL (7.4-10.4) 08/13/22 15:50 Neut % (Auto) 61.0 % 08/13/22 15:50 Lymph % (Auto) 31.3 % 08/13/22 15:50 [place] % (Auto) 5.4 % 08/13/22 15:50 Eos % (Auto) 1.9 % 08/13/22 15:50 Baso % (Auto) 0.3 % 08/13/22 15:50 Neut # (Auto) 4.20 10^3/uL (1.8-7.7) 08/13/22 15:50 Lymph # (Auto) 2.2 10^3/uL (0.8-4.8) 08/13/22 15:50 [place] # (Auto) 0.4 10^3/uL (0.2-0.9) 08/13/22 15:50 Eos # (Auto) 0.1 10^3/uL (0.0-0.8) 08/13/22 15:50 Baso # (Auto) 0.0 10^3/uL (0.0-0.1) 08/13/22 15:50 Nucleated RBC % (auto) 0 % 08/13/22 15:50 Nucleated RBCs # 0.0 /100WBC 08/13/22 15:50 Sodium 134 mmol/L (136-145) L 08/13/22 15:50 Potassium 4.2 mmol/L (3.5-5.1) 08/13/22 15:50 Chloride 99 mmol/L (98-107) 08/13/22 15:50 Carbon Dioxide 27 mmol/L (22-29) 08/13/22 15:50 Anion Gap 12.2 (5-19) 08/13/22 15:50 BUN 15 mg/dL (8-23) 08/13/22 15:50 Creatinine 0.7 mg/dL (0.7-1.2) 08/13/22 15:50 GFR Calculation Not Reportable 08/13/22 15:50 Glucose 92 mg/dL (65-115) 08/13/22 15:50 Calculated Osmolality 278 mOsm/kg (285-295) L 08/13/22 15:50 Calcium 9.0 mg/dL (8.5-10.5) 08/13/22 15:50 Magnesium 2.2 mg/dL (1.7-2.3) 08/13/22 15:50 Total Bilirubin 0.5 mg/dL (0.15-1.2) 08/13/22 15:50 AST 21 U/L (0-40) 08/13/22 15:50 ALT 14 U/L (0-41) 08/13/22 15:50 Alkaline Phosphatase 57 U/L (40-130) 08/13/22 15:50 Troponin T Baseline 13 ng/L (0-15) 08/13/22 15:50 Total Protein 7.1 g/dL (6.6-8.7) 08/13/22 15:50 Albumin 4.6 g/dL (3.5-5.2) 08/13/22 15:50 Globulin 2.5 g/dL (1.3-4.6) 08/13/22 15:50 Urine Color Straw (Yellow) 08/13/22 15:42 Urine Appearance Clear (CLEAR) 08/13/22 15:42 Urine pH 7 (5-7) 08/13/22 15:42 Ur Specific [place] 1.005 (1.005-1.030) 08/13/22 15:42 Urine Protein Neg (Negative) 08/13/22 15:42 Urine Glucose (UA) Norm (Normal) 08/13/22 15:42 Urine Ketones Negative (Negative) 08/13/22 15:42 Urine Blood Neg (Negative) 08/13/22 15:42 Urine Nitrate Negative (Negative) 08/13/22 15:42 Urine Bilirubin Neg (Negative) 08/13/22 15:42 Urine Urobilinogen Norm mg/dL (Negative) 08/13/22 15:42 Ur Leukocyte Esterase Negative (Negative) 08/13/22 15:42 Discharge Plan Discharge Patient Disposition: Admitted As Inpatient Admit Provider: Pepe Mancuso Clinical Impression: Cerebrovascular accident, Atrial fibrillation Condition: Stable Coding Level of Care Code ED Copper Tapper for Lesli Hickey
[2022-08-13 15:50] LABS: Add Urine Microscopic? NO; Charge for UA Resulting for Rev
[2022-08-13 15:54] LABS: Specific Gravity, Urine 1.005 (1.005-1.030); Urine Appearance Clear (CLEAR); Urine Color Straw (Yellow); pH Urine 7 (5-7)
[2022-08-13 15:55] LABS: Bilirubin Urine Neg (Negative); Blood Urine Neg (Negative); Glucose Urine UA Norm (Normal); Ketones Urine Negative (Negative); Leukocyte Esterase Urine Negative (Negative); Nitrate Urine Negative (Negative); Protein Urine Neg (Negative); Urobilinogen Urine Norm (Negative)
[2022-08-13 16:00] LABS: Basophils % 0.3 %; Eosinophils # 0.1 10^3/uL (0.0-0.8); Eosinophils % 1.9 %; Hematocrit 43.9 % (42.0-52.0); Lymphocytes # 2.2 10^3/uL (0.8-4.8); Lymphocytes % 31.3 %; Mean Corpuscular HGB Conc 31.9 g/dL (30.0-36.0); Mean Corpuscular Hemoglobin 30.7 pg (28.0-34.0); Mean Corpuscular Volume 96.3 fl (80-94); Mean Platelet Volume 9.5 fL (7.4-10.4); Monocytes # 0.4 10^3/uL (0.2-0.9); Monocytes % 5.4 %; Nucleated Red Blood Cells % 0 %; Platelet Count 199 10^3/cmm (130-400); Red Blood Count 4.56 10^6/uL (4.1-5.3); Red Cell Distribution Width 13.4 % (12.1-15.1); White Blood Count 6.9 10^3/uL (4.0-10.0)
[2022-08-13 17:08] LABS: Alanine Aminotransferase 14 U/L (0-41); Albumin Level 4.6 g/dL (3.5-5.2); Alkaline Phosphatase 57 U/L (40-130); Anion Gap 12.2 (5-19); Aspartate Amino Transferase 21 U/L (0-40); Blood Urea Nitrogen 15 mg/dL (8-23); Carbon Dioxide 27 mmol/L (22-29); Chloride 99 mmol/L (98-107); Globulin 2.5 g/dL (1.3-4.6); Glucose 92 mg/dL (65-115); Magnesium 2.2 mg/dL (1.7-2.3); Osmolality Calculated 278 mOsm/kg (285-295); Potassium 4.2 mmol/L (3.5-5.1); Sodium 134 mmol/L (136-145); Total Bilirubin 0.5 mg/dL (0.15-1.2); Total Protein 7.1 g/dL (6.6-8.7)
[2022-08-13 17:09] LABS: Troponin(5th) Baseline 13 ng/L (0-15)
--- NOTE | 2022-08-13 17:16 | ECG_ITS ---
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 Measurements Intervals [place] Rate: 48 P: -86 FL: 267 QRS: 32 QRSD: 96 T: 31 QT: 442 QTc: 398 Interpretive Statements ECTOPIC ATRIAL BRADYCARDIA WITH FIRST DEGREE AV BLOCK INCOMPLETE RIGHT BUNDLE BRANCH BLOCK [90+ ms QRS DURATION, TERMINAL R IN V1/V2, 40+ ms S IN I/aVL/V4/V5/V6] Compared to ECG 08/13/2022 15:10:13 Bradycardia, nonsinus now present Sinus bradycardia no longer present Electronically Signed On 08-14-2022 8:14:53 CDT by John El M.D. [email or web address]
[2022-08-13] MEDS: lactated ringers 1,000 ML 75 ML IV (18:03)
--- NOTE | 2022-08-13 18:23 | PC.NURSE ---
Admit report. Report called to Med Surg floor. Condition, treatments, and vitals reported. Floor requested to wait a bit to bring patient to floor if possible.
--- NOTE | 2022-08-13 18:26 | P.HP_ITS ---
Providers/Chief Complaint Primary Care Provider: Charlie Sears MD Chief Complaint: Dizzy, Weakness, states he may have afib History of Present Illness Pleasant 77-year-old gentleman came into ER for evaluation due to dizziness, he became dizzy after leaning back to apply lubricant eyedrops to his eyes, and then straightening up, with report in ER of possibly some unilateral lower extremity weakness as well although currently he is not having it. CT of the head unremarkable. Stroke neurology was contacted, he was not found a candidate for tPA, but with recommendation for admission for additional work-up including MRI, obtain CTA in case NIH stroke score increased to 6 or above. He reports that he is still having some mild dizziness with things mildly spinning around him, during exam this appears to be more so on rightward gaze. He otherwise has not had any artery complaints recently no fevers chills, no symptoms of URI. States felt mildly nauseated, no vomiting. He takes Eliquis due to history of atrial fibrillation. Review of Systems Const: Denies: fever(s), chills, body aches or malaise Eyes: Denies: change in vision ENMT: Denies: throat pain Card: Denies: chest pain, edema, pre-syncope or dyspnea on exertion Resp: Denies: dyspnea, productive cough, change in phlegm color or hemoptysis GI: Denies: abdominal pain, nausea, vomiting, diarrhea, constipation, hematochezia or melena : Denies: flank pain, difficulty urinating, urinary frequency or hematuria Musc: Denies: back pain, joint swelling or joint redness Skin/Breast: Denies: rash or new lesions Neuro: Reports: dizziness; Denies: headache(s), numbness in extremities, weakness in extremities, confusion or seizure-like activity Medications/Allergies Home Medications Medication Instructions Recorded Confirmed Last Taken Type aimyhljl-jna-imdim acid 300 1 tab PO DAILY 08/18/20 05/29/22 01/18/21 History mcg-lycopene 600 mcg-lutein 300 mcg tablet (Centrum Silver Men) magnesium L-lactate 84 mg 84 mg PO BID #180 tabs 09/05/21 05/29/22 Unknown Rx tablet,extended release (Magtab) apixaban 5 mg tablet (Eliquis) 5 mg PO BID #180 tabs 03/09/22 05/29/22 Unknown Rx Allergies Allergy/AdvReac Type Severity Reaction Status Date / Time zoster vaccine live Allergy Mild ADR-Muscle Verified 08/13/22 14:09 [From Zostavax (PF)] Pain PFSH Acute PFSH: Medical History Atrial flutter, paroxysmal BPH loc w urin obs/LUTS Family history of malignant melanoma History of herniated intervertebral disc Since he was at least 32years old. History of malignant melanoma Intention tremor Has had this for over 25years. It does not affect his life and he does not take any medications for it. 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 Urolithiasis Surgical History H/O lithotripsy ESWL H/O melanoma excision (01/19/21) Wide local excision with sentinel lymph node biopsy History of tonsillectomy Family History Mother , AT AGE 90 Diabetes CHF (congestive heart failure) CAD (coronary artery disease) Father CHF (congestive heart failure) AT AGE 92 CAD (coronary artery disease) Dementia Brother Protein S deficiency Unknown No problems noted. Family/Other Protein S deficiency His brother w/ Protein S deficiency's 2 daughters (Patient's 2 nieces). One of the niece's 2 daughters. Bleeding disorder Clotting disorder Denies family history of Suicide Anesthesia complication Lung disease Cancer Stroke Social History Smoking and tobacco status: never smoked Alcohol intake: never Substance/Drug Use: never Marital status: Single Current occupational status: retired Vitals/I&O/Wt Last Vital Signs Temp 98.4 F 08/13/22 14:04 Pulse 54 L 08/13/22 17:29 Resp 20 H 08/13/22 17:29 BP 104/70 08/13/22 17:29 Pulse Ox 99 08/13/22 17:29 O2 Del Method Room Air 08/13/22 17:29 Weight last 48 hrs Weight 81.647 kg Physical Exam Narrative: Sitting up at edge of bed. Mostly remains motionless. Const: COMMON NORMALS: patient oriented x3 and alert GENERAL APPEARANCE: cooperative ORIENTATION/CONSCIOUSNESS: Yes awake HENMT: COMMON NORMALS: oropharynx normal Neck/C-Spine: COMMON NORMALS: no JVD Resp: COMMON NORMALS: normal respiratory effort and clear to auscultation bilaterally AUSCULTATION: clear to auscultation bilaterally Cardio: COMMON NORMALS: no JVD, regular rhythm, S1 normal heart sound present, S2 normal heart sound present and No murmurs present (Cardio) RHYTHM: regular rhythm HEART SOUNDS: S1 normal heart sound present and S2 normal heart sound present GI: COMMON NORMALS: Normal to inspection, nondistended, normoactive bowel sounds present, Soft to palpation and non-tender PALPATION: Yes Soft to palpation Extremity: COMMON NORMALS: no joint enlargement and no pedal edema Neuro: COMMON NORMALS: patient oriented x3 and moves all extremities SENSORIUM/ORIENTATION: Yes alert OTHER: Awake and alert, following directions without issues. No trouble tracking, minimal nystagmus at extremes, reports vertigo at rightward gaze. FNF WNL Visual maier intact, no visual extinction. No facial droop. No upper or lower extremity drift. Sensory exam symmetrical, no sensory extinction. Skin: COMMON NORMALS: no rashes or lesions noted GENERAL SKIN EXAM: no rashes or lesions noted Data 08/13/22 15:50 08/13/22 15:50 A&P Assessment and plan (1) CVA (cerebral vascular accident): Stroke neurology was contacted in ER with concern for possible posterior circulation CVA, he does have some persistent mild vertigo, in ER also reportedly had some weakness in lower extremity, left abdomen detect this any longer. He denies noticing it subjectively. Symptoms started after he leaned back to put eyedrops in his eyes. Discussing with him cannot exclude vertebral dissection versus posterior CVA. Alternatively other possibilities, possibly BPPV. No signs of middle ear infection. Recommendation by neurology is admission with additional work-up, as well as holding Eliquis for several days to make sure no hemorrhagic transformation. We will give him another 60 mg aspirin. Requesting MRI, additional assessment with carotid Doppler. Discussed with him noted previously heart unilateral carotid 50-69% stenosis on the right back in 2020. Additionally assess TTE bubble study, will check A1c, lipid profile. Start atorvastatin. With concern for possible posterior circulation CVA avoid hypotension. Permissive hypertension. We will give him IV hydration with LR 75 mill per hour with suspected posterior circulation CVA, with also soft blood pressure noted on presentation 104/70, risk of posterior brain edema risk of cerebral herniation, potential for life threatening complications and . Discussed with him. Additionally he is at risk of fluid overload and CHF given grade 3 diastolic function noted previously on echo, at high risk of decompensation of CHF. Monitor volume status, aspiration. Fall precautions, PT, OT assessment. Bedside swallow evaluation. Case management consultation requested. Discussed with ER physician, ER documentation reviewed. Otherwise UA noted unremarkable. Chemistry panel including sodium, electrolytes, renal function, liver parameters reviewed, noted normal. CBC unremarkable, no leukocytosis, he is afebrile. Heparin DVT prophylaxis for now, stop heparin when switching back to Eliquis. (2) Dizziness: As above. In case no CVA noted on MRI, possibility of TIA versus other causes including possibly BPPV. Plan Atrial fibrillation: Normally on Eliquis, held for now as per recommendation by neurology. History of BPH: Not managed with medications. He denies any urinary difficulti es. UA unremarkable. Attestations Medical Necessity Statement*: Admission of over 2 midnights anticipated for assessment management of suspected posterior circulation CVA. Diagnoses CVA (cerebral vascular accident) I63.9 Dizziness R42
[2022-08-13] MEDS: aspirin 81 mg EC Tablet 162 MG PO (18:34)
[2022-08-13 18:44] LABS: Troponin 5 2HR 8.81 ng/L (0-15)
[2022-08-13 19:02] LABS: Troponin 5 2HR Delta -2.19 ABS# (0-10)
--- NOTE | 2022-08-13 19:26 | USCV_ITS ---
Ilir Correa Age: 77 Gender: M : 1945 Exam Date: 08/13/2022 20:35 Ordering Phys: Pepe Mancuso MD Technologist: MANJIT Exam Location: [facility] [place] Indication: cva BP: / HR: 55 Rhythm: Sinus Technical Quality: Adequate MEASUREMENTS (Male / Female) Normal Values 2D ECHO LV Diastolic Diameter PLAX 5.7 cm 4.2 - 5.9 / 3.9 - 5.3 cm LV Systolic Diameter PLAX 3.5 cm IVS Diastolic Thickness 0.7 cm 0.6 - 1.0 / 0.6 - 0.9 cm IVS Systolic Thickness 1.1 cm LVPW Diastolic Thickness 0.7 cm 0.6 - 1.0 / 0.6 - 0.9 cm LVPW Systolic Thickness 1.2 cm LVOT Diameter 2.3 cm LV Ejection Fraction 2D Teich 66.5 % LV Ejection Fraction MOD 2C 61.3 % LV Ejection Fraction 2C AL 60.7 % LA Diameter 3.2 cm IVC Diameter 1.9 cm M-MODE Aortic Annulus Diameter 3.6 cm LA Ao Ratio MM 1.0 MV E Point Septal Separation 0.1 cm DOPPLER AV Peak Velocity 95.0 cm/s LVOT Peak Velocity 89.0 cm/s AV Area Cont Eq vti 3.8 cm squared AV Area Cont Eq pk 3.9 cm squared MV Area PHT 4.8 cm squared Mitral E to A Ratio 1.6 MV E' Velocity 52.5 cm/s Mitral E to MV E' Ratio 8.6 Mitral E to LV E' Lateral Ratio 7.7 Mitral E to LV E' Septal Ratio 9.9 TR Peak Velocity 185.3 cm/s TR Peak Gradient 13.7 mmHg Right Atrial Pressure 6.0 mmHg Pulmonary Artery Systolic Pressu 19.7 mmHg PV Peak Velocity 65.0 cm/s FINDINGS Left Ventricle Normal left ventricular size, systolic function and wall thickness, with no regional wall motion abnormalities. Normal left ventricular wall thickness. Grade II/IV diastolic dysfunction, moderately elevated filling pressures. Right Ventricle The right ventricle is normal in size and function. Right Atrium The right atrium is normal in size. Left Atrium The left atrium is normal in size. Mitral Valve Structurally normal mitral valve without significant stenosis or prolapse. There is no mitral regurgitation. Aortic Valve Structurally normal aortic valve without significant sclerosis or stenosis. There is no aortic regurgitation. Tricuspid Valve Structurally normal tricuspid valve without significant stenosis or regurgitation. Pulmonary artery systolic pressure is normal. Pulmonic Valve Structurally normal pulmonic valve without significant stenosis. There is no pulmonic regurgitation. Pericardium Normal pericardium without effusion. Aorta Normal ascending aorta dimension. IVC The inferior vena cava appears normal. CONCLUSIONS Normal left ventricular size, systolic function and wall thickness, with no regional wall motion abnormalities. Normal left ventricular wall thickness. Grade II/IV diastolic dysfunction, moderately elevated filling pressures. When compared to the previous study from July of last year, the previously noted biatrial enlargement, valvular regurgitation and mild pulmonary hypertension as well as the dilated aortic root are not noted on today's study. Dr. John El MD (Electronically Signed) Final Date: 14 August 2022 08:08 S
[2022-08-13] MEDS: heparin 5,000 unit/mL INJ 1 mL 5000 UNIT SUBCUT (20:25)
[2022-08-13] MEDS: atorvastatin 40 mg Tablet PO (20:25)
[2022-08-13 22:42] LABS: Troponin 5 6HR 9.99 ng/L (0-15)
[2022-08-13 23:01] LABS: Troponin 5 6HR Delta -3.01 ng/L (0-12)
[2022-08-14 00:56] VITALS: BP 119/69; PULSE 55; RESP 17; TEMP 36.6; O2SAT 99
[2022-08-14 03:19] VITALS: BP 107/65; PULSE 53; RESP 16; TEMP 36.7; O2SAT 98
[2022-08-14 05:35] LABS: Chol HDL Ratio 2.36 mg/dL (1.0-5.00); Cholesterol 132 mg/dL (0-200); HDL Cholesterol 56 mg/dL (60-100); LDL Cholesterol Calculated 68 mg/dL (50-129); LDL HDL Ratio 1.21 RATIO (0.00-3.22); Triglycerides 41 mg/dL (0-150)
[2022-08-14 05:59] LABS: Estmated Average Glucose 105; Hemoglobin A1C 5.3 % (4.0-6.0)
--- NOTE | 2022-08-14 06:00 | USCV_ITS ---
Ilir Correa Age: 77 Gender: M : 1945 Exam Date: 08/14/2022 06:36 Ordering Phys: Pepe Mancuso MD Technologist: [place] [facility] [place]: cva Risk Factors: Previous Vascular Surgery: Right Brachial BP: / Left Brachial BP: / Right Left Velocity (cm/s) Spectral Plaque Velocity (cm/s) Spectral Plaque Syst/Diast Broadening Syst/Diast Broadening 58.60/ 7.40 Prox CCA 91.50 / 9.40 63.00/ 10.50 Mid CCA 79.10 / 15.60 62.30/ 10.50 Distal CCA 72.80 / 14.60 43.20/ 10.50 Prox ICA 66.40 / 20.30 59.90/ 18.10 Mid ICA 100.60/ 21.40 71.80/ 27.10 Distal ICA 60.00 / 16.80 60.50 ECA 47.50 1.14 ICA/CCA 1.10 Antegrade Vertebral Antegrade 35.20/ 7.30 cm/s 57.30/ 16.20 cm/s Tri Subclavian Tri 91.50 104.2 0 FINDINGS Comparison:. 08/19/20 No significant elevation of systolic or diastolic velocities. Waveforms are normal. Minimal carotid atherosclerosis. Antegrade vertebral arteries. CONCLUSIONS Bilateral ICA stenosis less than 50%. Stable, mild carotid atherosclerosis. Dr. Araceli Anand DO (Electronically Signed) Final Date: 14 August 2022 07:39 S
[2022-08-14] MEDS: lactated ringers 1,000 ML 75 ML IV (06:13)
[2022-08-14 07:35] VITALS: BP 100/61; PULSE 60; RESP 16; TEMP 36.9; O2SAT 99
[2022-08-14] MEDS: magnesium lactate 84 mg Tablet PO (08:36)
--- NOTE | 2022-08-14 09:30 | MR_ITS ---
WS: [id number] MRI HEAD WITHOUT CONTRAST TECHNIQUE: Sagittal T1, T2 axial, T2 axial FLAIR, axial and coronal T1 images, axial susceptibility w eighted imaging, axial diffusion weighted images, and coronal T2 images were obtained. CLINICAL INFORMATION: susp post circ CVA COMPARISON: CT head August 13, 2022 FINDINGS: No evidence of restricted diffusion to suggest acute ischemia. Ventricular system and basal cisterns are patent. No hemosiderin on the susceptibly weighted images. Mild small vessel changes. Mild parenc hymal volume loss. Normal posterior fossa. Normal vascular flow voids at the skull base. No extra-axi al fluid collections. No evidence of mass or mass effect. Normal optic chiasm and pituitary infundibulum. Mild to moderate symmetric atrophy temporal lobes and hippocampal formations. Paranasal sinuses and mastoid air cells are well aerated. Mild mucosal thickening in the ethmoid air cells. MR/MR head wo con* [id number] IMPRESSION: 1. No evidence of restricted diffusion to suggest acute ischemia. 2. Mild small vessel changes with mild parenchymal volume loss. 3. No extra-axial fluid collections. No evidence of mass or mass effect. 4. No hemosiderin on susceptibly weighted images. 5. Mild to moderate symmetric atrophy temporal lobes and hippocampal formation s.
[2022-08-14] MEDS: acetaminophen 325 mg Tablet 650 MG PO (09:52)
[2022-08-14 11:50] VITALS: BP 118/68; PULSE 60; RESP 15; TEMP 36.6; O2SAT 98
--- NOTE | 2022-08-14 12:29 | PM.DCS ---
Discharge Providers Date of Admission: 08/13/22 18:01 Date of Discharge: August 14, 2022 Attending Provider at Admission: Pepe Mancuso Attending Provider at Discharge: Julius Staley MD Primary Care Provider: Charlie Sears MD Diagnoses at Discharge Discharge Diagnosis (1) CVA (cerebral vascular accident): Status: Acute (2) Dizziness: Status: Acute Reason for Visit Reason for Visit: Dizzy, Weakness, states he may have afib Hospital Course Hospital Course ?77M: Admitted today, after developing persistent vertigo after leaning backwards to put in some drops in his eyes, when he leaned back forward, became dizzy, dizziness did not go away. In ER was reported also had some unilateral lower extremity weakness, with concern for stroke by history she was contacted. He is on Eliquis for atrial fibrillation, not a candidate for tPA. By the time I saw him he also stated did not have weakness in lower extremity, but does have some persistent mild vertigo. Concerning for possible posterior circulation CVA, versus vertebral dissection, neurology recommended to hold Eliquis for couple days per ER physician to make sure there is no hemorrhagic transformation, recommended MRI, also ordered other studies including carotid Doppler, bubble echo, A1c, etc. Started him on aspirin, statin. Blood pressure somewhat soft on presentation and with concern for possible posterior circulation CVA started him on IV fluid. Carotid Doppler did not show significant stenosis of carotid vessels, MRI ruled out stroke. I I have counseled patient to Luis Alberto's maneuver to treat his vertigo at this point and continue his Eliquis. No signs of dyslipidemia, echo unremarkable showed grade 2 diastolic dysfunction normal left ventricle thickness, no signs of primary hypertension biatrial enlargement or valvular regurgitation noted on this echo. EKG showed first-degree AV block with bradycardia patient never experienced chest pain confusion syncope. ? Physical Exam Narrative: Awake and alert NIH 0 Able to communicate Able to walk independently Abdomen soft Doing well on room air Discharge Data Studies Completed and Pending Completed Studies During Hospitalization Category Date Time Status CT head thrombolytic 21462 Stat Cat Scan 08/13/22 15:08 Completed MR head wo con* [id number] Routine MRI 08/14/22 09:30 Completed CV carotid duplex BI* [id number] Routine Ultrasound 08/14/22 06:00 Completed CV. echo w/w bubble cont [id number] Routine Ultrasound 08/13/22 19:26 Completed Radiology Impressions Head CT 08/13/22 15:08 IMPRESSION: No acute intracranial abnormality. ASSESSMENT: ASPECTS ([place] Stroke Program Early CT Score) is 10. Head MRI 08/14/22 09:30 IMPRESSION: 1. No evidence of restricted diffusion to suggest acute ischemia. 2. Mild small vessel changes with mild parenchymal volume loss. 3. No extra-axial fluid collections. No evidence of mass or mass effect. 4. No hemosiderin on susceptibly weighted images. 5. Mild to moderate symmetric atrophy temporal lobes and hippocampal formations. Laboratory Results WBC 6.9 10^3/uL (4.0-10.0) 08/13/22 15:50 RBC 4.56 10^6/uL (4.1-5.3) 08/13/22 15:50 Hgb 14.0 g/dL (11.7-16.6) 08/13/22 15:50 Hct 43.9 % (42.0-52.0) 08/13/22 15:50 MCV 96.3 fl (80-94) H 08/13/22 15:50 MCH 30.7 pg (28.0-34.0) 08/13/22 15:50 MCHC 31.9 g/dL (30.0-36.0) 08/13/22 15:50 RDW 13.4 % (12.1-15.1) 08/13/22 15:50 Plt Count 199 10^3/cmm (130-400) 08/13/22 15:50 MPV 9.5 fL (7.4-10.4) 08/13/22 15:50 Neut % (Auto) 61.0 % 08/13/22 15:50 Lymph % (Auto) 31.3 % 08/13/22 15:50 [place] % (Auto) 5.4 % 08/13/22 15:50 Eos % (Auto) 1.9 % 08/13/22 15:50 Baso % (Auto) 0.3 % 08/13/22 15:50 Neut # (Auto) 4.20 10^3/uL (1.8-7.7) 08/13/22 15:50 Lymph # (Auto) 2.2 10^3/uL (0.8-4.8) 08/13/22 15:50 [place] # (Auto) 0.4 10^3/uL (0.2-0.9) 08/13/22 15:50 Eos # (Auto) 0.1 10^3/uL (0.0-0.8) 08/13/22 15:50 Baso # (Auto) 0.0 10^3/uL (0.0-0.1) 08/13/22 15:50 Nucleated RBC % (auto) 0 % 08/13/22 15:50 Nucleated RBCs # 0.0 /100WBC 08/13/22 15:50 Sodium 134 mmol/L (136-145) L 08/13/22 15:50 Potassium 4.2 mmol/L (3.5-5.1) 08/13/22 15:50 Chloride 99 mmol/L (98-107) 08/13/22 15:50 Carbon Dioxide 27 mmol/L (22-29) 08/13/22 15:50 Anion Gap 12.2 (5-19) 08/13/22 15:50 BUN 15 mg/dL (8-23) 08/13/22 15:50 Creatinine 0.7 mg/dL (0.7-1.2) 08/13/22 15:50 GFR Calculation Not Reportable 08/13/22 15:50 Glucose 92 mg/dL (65-115) 08/13/22 15:50 Estimat Average Glucose 105 08/14/22 04:39 Hemoglobin A1c 5.3 % (4.0-6.0) 08/14/22 04:39 Calculated Osmolality 278 mOsm/kg (285-295) L 08/13/22 15:50 Calcium 9.0 mg/dL (8.5-10.5) 08/13/22 15:50 Magnesium 2.2 mg/dL (1.7-2.3) 08/13/22 15:50 Total Bilirubin 0.5 mg/dL (0.15-1.2) 08/13/22 15:50 AST 21 U/L (0-40) 08/13/22 15:50 ALT 14 U/L (0-41) 08/13/22 15:50 Alkaline Phosphatase 57 U/L (40-130) 08/13/22 15:50 Troponin T Baseline 13 ng/L (0-15) 08/13/22 15:50 Troponin T 120 Minute 8.81 ng/L (0-15) 08/13/22 18:07 Delta Troponin T -2.19 ABS# (0-10) L 08/13/22 18:07 Troponin T Hi Sens 6Hr 9.99 ng/L (0-15) 08/13/22 21:56 Troponin T Hi Sens 6Hr Delta -3.01 ng/L (0-12) L 08/13/22 21:56 Total Protein 7.1 g/dL (6.6-8.7) 08/13/22 15:50 Albumin 4.6 g/dL (3.5-5.2) 08/13/22 15:50 Globulin 2.5 g/dL (1.3-4.6) 08/13/22 15:50 Triglycerides 41 mg/dL (0-150) 08/14/22 04:39 Cholesterol 132 mg/dL (0-200) 08/14/22 04:39 LDL Cholesterol, Calc 68 mg/dL (50-129) 08/14/22 04:39 HDL Cholesterol 56 mg/dL (60-100) L 08/14/22 04:39 LDL/HDL Ratio 1.21 RATIO (0.00-3.22) 08/14/22 04:39 Cholesterol/HDL Ratio 2.36 mg/dL (1.0-5.00) 08/14/22 04:39 Urine Color Straw (Yellow) 08/13/22 15:42 Urine Appearance Clear (CLEAR) 08/13/22 15:42 Urine pH 7 (5-7) 08/13/22 15:42 Ur Specific [place] 1.005 (1.005-1.030) 08/13/22 15:42 Urine Protein Neg (Negative) 08/13/22 15:42 Urine Glucose (UA) Norm (Normal) 08/13/22 15:42 Urine Ketones Negative (Negative) 08/13/22 15:42 Urine Blood Neg (Negative) 08/13/22 15:42 Urine Nitrate Negative (Negative) 08/13/22 15:42 Urine Bilirubin Neg (Negative) 08/13/22 15:42 Urine Urobilinogen Norm mg/dL (Negative) 08/13/22 15:42 Ur Leukocyte Esterase Negative (Negative) 08/13/22 15:42 Vitals Last Vital Signs Temp 97.8 F 08/14/22 11:50 Pulse 60 08/14/22 11:50 Resp 15 08/14/22 11:50 BP 118/68 08/14/22 11:50 Pulse Ox 98 08/14/22 11:50 O2 Del Method Room Air 08/14/22 07:35 Discharge Plan Discharge Patient Disposition: Home Condition: Stable Prescriptions: New meclizine 25 mg tablet 25 mg PO TID PRN (Reason: dizziness) Qty: 30 0RF Continued magnesium L-lactate [Magtab] 84 mg tablet extended release 84 mg PO BID Qty: 180 3RF Eliquis 5 mg tablet 5 mg PO BID Qty: 180 3RF Hold Instructions: Resume on 01/22/21. Centrum Silver Men 300-600-300 mcg Tablet 1 tab PO DAILY Discharge Orders: Discharge Order (Routine); Ordered 08/14/22 Ordered By: Julius Staley Referrals: Charlie Sears MD [Primary Care Provider] - 2 weeks Discharge Diet: Cardiac Discharge Activity: Increase activity as tolerated Patient Instructions: Ischemic Stroke (DC), Opioid Safety Activity Restrictions/Additional Instructions: -Please consider Luis Alberto's maneuver for correction of vertigo -You don't have stroke related symptoms Discharge Attestations Time Spent in Discharge Care*: greater than 30 min Quality Metrics Clinical Quality Measures [ No reported AMI, CVA or VTE this stay] Coding Level of Care Code Acute Code for Chg Fwd Diagnoses CVA (cerebral vascular accident) I63.9 Dizziness R42
[2022-08-14] MEDS: ketorolac 30 mg/mL INJ 15 MG IVP (13:16)
[2022-08-14 13:23] VITALS: BP 118/68; PULSE 60; RESP 15; TEMP 36.6; O2SAT 98
== END 2022-08-14 14:50 | disposition home or self-care (01) | DRG 149 ==
LOC: ER 15:11 → MEDSURG 18:57
PROVIDERS: Admitting Provider Internal Medicine; Emergency Provider Emergency Medicine; PCP Family Medicine; Visit Provider Internal Medicine
DX: R42 Dizziness and giddiness (principal); I44.0 Atrioventricular block, first degree; I48.91 Unspecified atrial fibrillation; Z79.01 Long term (current) use of anticoagulants; N40.1 Benign prostatic hyperplasia with lower urinary tract symptoms; Z85.820 Personal history of malignant melanoma of skin; G25.2 Other specified forms of tremor
CPT/HCPCS: 36415; 70450; 70551; 80053; 80061; 81003; 83036; 83735; 84484; 85025; 92523; 92610; 93005; 93880; 96360; 96361; 96372; 97110; 97116; 97161; 99285; C8929; J1644; J1885; J7120

== ENCOUNTER → 2022-09-26 09:31 | Outpatient (BNVA) | payer MEDICARE, BC, SELFPAY | PROVIDERS: PCP Family Medicine; Visit Provider Nurse Practitioner Family | DX: D48.9 Neoplasm of uncertain behavior, unspecified (principal); B07.8 Other viral warts; L85.3 Xerosis cutis; D22.5 Melanocytic nevi of trunk; L57.0 Actinic keratosis; L57.8 Other skin changes due to chronic exposure to nonionizing radiation; L82.1 Other seborrheic keratosis; L81.4 Other melanin hyperpigmentation | CPT/HCPCS: 17000; 17003; 17110; 99213 ==

== ENCOUNTER → 2022-12-05 14:52 | Outpatient (BNVA) | payer MEDICARE, BC, SELFPAY | PROVIDERS: PCP Family Medicine; Visit Provider Nurse Practitioner Family | DX: I48.91 Unspecified atrial fibrillation (principal); Z79.01 Long term (current) use of anticoagulants | CPT/HCPCS: 99213 ==

== ENCOUNTER 2022-12-19 11:34 | Emergency (ER) | payer MEDICARE, BC, SELFPAY ==
[2022-12-19 11:40] VITALS: BMI 24.4
--- NOTE | 2022-12-19 11:49 | ECG_ITS ---
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 Measurements Intervals [place] Rate: 58 P: 88 MN: 201 QRS: 30 QRSD: 99 T: 45 QT: 409 QTc: 402 Interpretive Statements SINUS BRADYCARDIA Compared to ECG 08/13/2022 17:16:04 Bradycardia, nonsinus no longer present First degree AV block no longer present Incomplete right bundle-branch block no longer present Electronically Signed On 12-19-2022 23:17:55 OFFICE LEAD by Huseyin Parsons M.D. [id number] f
[2022-12-19 11:50] VITALS: BP 121/70; PULSE 57; RESP 16; TEMP 36.6; O2SAT 100
[2022-12-19 12:34] LABS: Hematocrit 42.5 % (37-53); Mean Corpuscular HGB Conc 32.7 g/dL (30-55); Mean Corpuscular Hemoglobin 31.4 pg (27-33); Mean Corpuscular Volume 96.2 fl (82-101); Mean Platelet Volume 9.5 fL (7.4-10.4); Platelet Count 209 10^3/cmm (157-399); Red Blood Count 4.42 10^6/uL (3.85-5.65); Red Cell Distribution Width 13.2 % (12.1-15.1); White Blood Count 6.41 10^3/uL (3.29-11.43)
[2022-12-19 12:53] LABS: Alanine Aminotransferase 16 U/L (0-41); Albumin Level 4.4 g/dL (3.5-5.2); Alkaline Phosphatase 60 U/L (40-130); Anion Gap 11.3 (5-19); Aspartate Amino Transferase 21 U/L (0-40); Blood Urea Nitrogen 14 mg/dL (8-23); Calcium 9.4 mg/dL (8.5-10.5); Carbon Dioxide 29 mmol/L (22-29); Chloride 104 mmol/L (98-107); Globulin 2.6 g/dL (1.3-4.6); Glucose 90 mg/dL (65-115); Magnesium 2.1 mg/dL (1.7-2.3); Osmolality Calculated 290 mOsm/kg (285-295); Potassium 4.3 mmol/L (3.5-5.1); Sodium 140 mmol/L (136-145); Total Bilirubin 0.6 mg/dL (0.15-1.2)
[2022-12-19 13:34] LABS: Slide Review Slide Review Perform
[2022-12-19 13:35] LABS: Absolute Segmented Neutrophil 4.9 10/cmm (1.6-7.1); Eosinophils 0 %; Lymphocytes 15 %; Lymphocytes Absolute 1.3 10^3/cmm (1.2-3.4); Monocytes Absolute 0.2 10^3/cmm (0.1-0.6); Segmented Neutrophils 77 %; Total Cells Counted 100 (0-100)
[2022-12-19 13:36] LABS: Absolute Neutrophil 4.9 10^3/cmm (1.4-6.5); Platelet Estimate Normal (Normal)
--- NOTE | 2022-12-19 14:02 | ED_ITS ---
HPI - Dizziness General: Chief Complaint: Dizziness Stated Complaint: syncope Time Seen by Provider: 12/19/22 13:57 Source: patient Mode of arrival: ambulatory History of Present Illness: HPI Narrative: 77-year-old male presents emergency room with severe dizziness ataxia he is fallen several times in the last 6 approximately 1 week. Patient has a history of atrial fibrillation he was evaluated earlier this year in August. He is on Eliquis for atrial fibrillation. He denies any chest pain denies any shortness of breath. He has not had any unilateral weakness left or right he does state that his significant difficulty with gait and balance normally he walks several miles a day around town but has not been able to walk lately. Is complaining of the symptoms affecting his legs bilaterally in the lower extremities. Somewhat on the left arm as well. MD elicited complaint: dizziness and difficulty walking Onset (ago): week(s) Timing: gradual onset Severity: severe Description: lightheadedness, off-balance, difficulty walking and ongoing History of similar symptoms: No Exacerbating factors: nothing Relieving factors: nothing Associated symptoms: Reports malaise; Denies change in hearing, chest pain, chills, cough, diaphoresis, ear discharge, ear pressure, fevers/chills, headache(s), nausea, nasal congestion, palpitations, rash, short of breath, syncope, tinnitus, vomiting or weakness Associated neuro symptoms: Deny confusion, difficulty speaking, dysphagia, diplopia, extremity weakness, facial numbness, facial weakness, gait changes, numbness in extremities or visual changes Review of Systems Const: Reports: fatigue and malaise; Denies: fever(s), chills or diaphoresis ENMT: Denies: ear discharge, change in hearing, tinnitus or nasal congestion Card: Denies: chest pain, palpitations or syncope Resp: Denies: dyspnea GI: Denies: abdominal pain, nausea, vomiting or dysphagia : Denies: dysuria, urinary frequency or urinary urgency Musc: Denies: neck pain or back pain Skin/Breast: Denies: rash Neuro: Reports: weakness in extremities, lack of coordination, difficulty walking, frequent falls, dizziness and difficulty communicating thoughts; Denies: headache(s), numbness in extremities or confusion PFS ED PFSH: Medical History Atrial fibrillation Atrial flutter, paroxysmal BPH loc w urin obs/LUTS Cerebrovascular accident CVA (cerebral vascular accident) Dizziness Family history of malignant melanoma History of herniated intervertebral disc Since he was at least 32years old. History of malignant melanoma Intention tremor Has had this for over 25years. It does not affect his life and he does not take any medications for it. 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 Urolithiasis Surgical History H/O lithotripsy ESWL H/O melanoma excision (01/19/21) Wide local excision with sentinel lymph node biopsy History of tonsillectomy Family History Mother , AT AGE 90 Diabetes CHF (congestive heart failure) CAD (coronary artery disease) Father CHF (congestive heart failure) AT AGE 92 CAD (coronary artery disease) Dementia Brother Protein S deficiency Unknown No problems noted. Family/Other Protein S deficiency His brother w/ Protein S deficiency's 2 daughters (Patient's 2 nieces). One of the niece's 2 daughters. Bleeding disorder Clotting disorder Denies family history of Suicide Anesthesia complication Lung disease Cancer Stroke Social History Smoking and tobacco/nicotine status: never used tobacco/nicotine Alcohol intake: never Substance/Drug Use: never Marital status: Single Current occupational status: retired Physical Exam Const: COMMON NORMALS: no acute distress GENERAL APPEARANCE: cooperative and comfortable ORIENTATION/CONSCIOUSNESS: Yes awake, Yes oriented to person, Yes oriented to place and Yes oriented to time HENMT: COMMON NORMALS: normocephalic, atraumatic and hearing grossly normal bilaterally HEAD & SCALP: normocephalic and atraumatic Resp: COMMON NORMALS: normal respiratory effort, No retractions, No use of accessory muscles and clear to auscultation bilaterally AUSCULTATION: clear to auscultation bilaterally Cardio: COMMON NORMALS: regular rate, regular rhythm and No murmurs present (Cardio) RATE: regular rate RHYTHM: regular rhythm GI: COMMON NORMALS: Soft to palpation and No hepatosplenomegaly present AUSCULTATION: Yes normoactive bowel sounds PALPATION: Yes Soft to palpation, No Tenderness to palpation present (GI), No Guarding due to palpation present (GI) and Yes No hepatosplenomegaly present Extremity: COMMON NORMALS: normal to inspection, capillary refill normal, no clubbing, cyanosis or edema, no calf tenderness and no pedal edema Neuro: SENSORIUM/ORIENTATION: Yes oriented to person, Yes oriented to place and Yes oriented to time Skin: COMMON NORMALS: no rashes or lesions noted GENERAL SKIN EXAM: no rashes or lesions noted Course Vital Signs: Vital signs: Vital Signs Temperature 97.9 F 12/19/22 11:50 Pulse Rate 50 L 12/19/22 15:25 Respiratory Rate 18 12/19/22 15:25 Blood Pressure 121/73 12/19/22 15:25 Pulse Oximetry 97 12/19/22 15:25 Oxygen Delivery Me thod Room Air 12/19/22 15:25 MDM - Dizziness Medical Decision Making CT shows extensive changes to the head. Compared to the MRI done 4 months ago when he came in with concern for acute stroke at that time his imaging CT head and MRI of the head were completely normal. There is no sign of any masses. No other multiple masses significant changes in edema. He has a history of a previous melanoma. I called and discussed with Dr. Richard. She had been following the patient he had a very thin melanoma and sentinel lymph node biopsy was negative surveillance was all that was required at this time. He subsequently had a squamous cell removed from the ear. Discussed the imaging findings with Dr. Stone. In his opinion given the history of melanoma these are most likely a systemic recurrence of his melanoma asked with radiology oncology at our cancer center. They recommend palliative brain therapy. Reviewed with the patient and his family member at the bedside. Discussed with him that there is likely other metastasis we did not know imaging for this at this time since it will not change our course of care. Radiation oncology has agreed to see the patient tomorrow morning and initiate palliative therapy. We did have a brief discussion with the patient and his family member who is present about the nature of this treatment and the prognosis of the disease. We did discuss that while we do not have a tissue biopsy which would generally be necessary to proceed in this particular case given the rapid onset and the known history of melanoma it is most likely melanoma. Additionally if there are brain mets are likely other metastasis these can be further worked up as an outpatient. Patient expresses understanding will discharge home he will contact the cancer center to be seen tomorrow morning. Medical Records I reviewed the patient's medical records. Lab Data I reviewed the patient's lab results. 12/19/22 12:12/19/22 12:27 Laboratory Results WBC 6.41 10^3/uL (3.29-11.43) 12/19/22 12: RBC 4.42 10^6/uL (3.85-5.65) 12/19/22 12:27 Hgb 13.90 g/dL (11.27-16.99) 12/19/22 12: Hct 42.5 % (37-53) 12/19/22 12: MCV 96.2 fl (82-101) 12/19/22 12: MCH 31.4 pg (27-33) 12/19/22 12: MCHC 32.7 g/dL (30-55) 12/19/22 12: RDW 13.2 % (12.1-15.1) 12/19/22 12:27 Plt Count 209 10^3/cmm (157-399) 12/19/22 12: MPV 9.5 fL (7.4-10.4) 12/19/22 12:27 Lymph % (Auto) Not Reportable 12/19/22 12:27 [place] % (Auto) Not Reportable 12/19/22 12:27 Lymph # (Auto) Not Reportable 12/19/22 12:27 [place] # (Auto) Not Reportable 12/19/22 12:27 Total Counted 100 (0-100) 12/19/22 12:27 Atypical Lymphs % 5.0 % (0-5) 12/19/22 12: Absolute Neutrophils 4.9 10^3/cmm (1.4-6.5) 12/19/22 12:27 Segmented Neutrophils 77 % 12/19/22 12:27 Abs Segm Neuts (Man) 4.9 10/cmm (1.6-7.1) 12/19/22 12: Band Neutrophils 0.0 % 12/19/22 12: Abs Band Neuts (Man) 0.0 10^3/cmm (0.0-1.2) 12/19/22 12:27 Absolute Lymphocytes 1.3 10^3/cmm (1.2-3.4) 12/19/22 12:27 Lymphocytes (Manual) 15 % 12/19/22 12:27 Monocytes (Manual) 3.0 % 12/19/22 12:27 Absolute Monocytes 0.2 10^3/cmm (0.1-0.6) 12/19/22 12:27 Eosinophils (Manual) 0 % 12/19/22 12:27 Absolute Eosinophils 0.0 10^3/cmm (0.0-0.7) 12/19/22 12:27 Basophils (Manual) 0.0 % 12/19/22 12: Absolute Basophils 0.0 10^3/cmm (0.0-0.2) 12/19/22 12:27 Platelet Estimate Normal (Normal) 12/19/22 12:27 Sodium 140 mmol/L (136-145) 12/19/22 12:27 Potassium 4.3 mmol/L (3.5-5.1) 12/19/22 12:27 Chloride 104 mmol/L (98-107) 12/19/22 12:27 Carbon Dioxide 29 mmol/L (22-29) 12/19/22 12:27 Anion Gap 11.3 (5-19) 12/19/22 12:27 BUN 14 mg/dL (8-23) 12/19/22 12:27 Creatinine 0.6 mg/dL (0.7-1.2) L 12/19/22 12:27 GFR Calculation Not Reportable 12/19/22 12:27 Glucose 90 mg/dL (65-115) 12/19/22 12:27 Calculated Osmolality 290 mOsm/kg (285-295) 12/19/22 12:27 Calcium 9.4 mg/dL (8.5-10.5) 12/19/22 12:27 Magnesium 2.1 mg/dL (1.7-2.3) 12/19/22 12:27 Total Bilirubin 0.6 mg/dL (0.15-1.2) 12/19/22 12:27 AST 21 U/L (0-40) 12/19/22 12:27 ALT 16 U/L (0-41) 12/19/22 12:27 Alkaline Phosphatase 60 U/L (40-130) 12/19/22 12:27 Troponin T Baseline 9 ng/L (0-15) 12/19/22 12:27 Troponin T 120 Minute 8.25 ng/L (0-15) 12/19/22 14:25 Delta Troponin T -0.75 ABS# (0-10) L 12/19/22 14:25 Total Protein 7.0 g/dL (6.6-8.7) 12/19/22 12:27 Albumin 4.4 g/dL (3.5-5.2) 12/19/22 12:27 Globulin 2.6 g/dL (1.3-4.6) 12/19/22 12:27 Urine Color Dark yellow (Yellow) 12/19/22 13:43 Urine Appearance Clear (CLEAR) 12/19/22 13:43 Urine pH 6 (5-7) 12/19/22 13:43 Ur Specific [place] 1.020 (1.005-1.030) 12/19/22 13:43 Urine Protein Neg (Negative) 12/19/22 13:43 Urine Glucose (UA) Norm (Normal) 12/19/22 13:43 Urine Ketones 1+ (Negative) H 12/19/22 13:43 Urine Blood 2+ (Negative) H 12/19/22 13:43 Urine Nitrate Negative (Negative) 12/19/22 13:43 Urine Bilirubin Neg (Negative) 12/19/22 13:43 Urine Urobilinogen Norm mg/dL (Negative) 12/19/22 13:43 Ur Leukocyte Esterase Negative (Negative) 12/19/22 13:43 Urine RBC 0-4 /hpf (0-2) H 12/19/22 13:43 Urine WBC None /hpf (0-5) 12/19/22 13:43 Ur Squamous Epith Cells None /hpf (0-5) 12/19/22 13:43 Amorphous Sediment Not Reportable 12/19/22 13:43 Urine Bacteria None /hpf (NONE) 12/19/22 13:43 Urine Mucus 1+ /hpf 12/19/22 13:43 All radiology interpretation(s) finalized by discharge Discharge Plan Discharge Patient Disposition: Home 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 No Action Centrum Silver Men 300-600-300 mcg Tablet 1 tab PO DAILY Magtab 84 mg tablet extended release 84 mg PO BID Discharge Orders: Discharge ED (Routine); Ordered 12/19/22 Ordered By: Britton Cantu Referrals: Charlie Sears MD [Primary Care Provider] - Discharge Diet: Usual diet Discharge Activity: Limit activity as instructed Patient Instructions: Opioid Safety, Pain Management Activity Restrictions/Additional Instructions: Thank you for choosing [facility] for your healthcare needs today. Please realize this is an emergency room and that we are providing you with a medical screening exam and this may not be complete and all inclusive of all the testing and or work up that you may need to determine your ailment or severity of your illness. It is very important that you follow up as instructed or that you return to the Emergency Department should you have concerns or if your condition changes or worsens in any way. You were seen today with difficulty walking and balance. CT of your head shows what appears to be multiple metastasis of cancer in the brain. Given your history these are most likely from the previously diagnosed malignant melanoma. I have discussed your case with the radiation oncologist he will see you tomorrow morning at the cancer treatment center to discuss palliative treatment options. Coding Level of Care Code ED Core Feeder for Lesli Hickey
--- NOTE | 2022-12-19 14:03 | CT_ITS ---
WS: [id number] CT HEAD TECHNIQUE: Noncontrast CT of the head obtained from the skullbase to the vertex. CLINICAL INFORMATION: LOC COMPARISON: MRI 08/14/2022 DLP: 1175.[address] scans at [facility] use at least one of these dose optimization techniques: automated e xposure control; mA and/or kV adjustment per patient size (includes targeted exams where dose is matc hed to clinical indication); or iterative reconstruction. FINDINGS: Since the prior examination interval development of diffuse areas of low-attenuation change compatibl e with edema involving the frontal parietal temporal and occipital white matter. Effacement of the ov erlying sulci. Effacement of the LEFT lateral ventricle with slight early effacement of the suprasell ar cistern. Partial effacement of the ambient cisterns about the midbrain and third ventricle. Fourth ventricle remains patent. Mild supratentorial mass effect. RIGHT to LEFT midline shift measures 3 mm . Small increased attenuation dural lesion overlying the LEFT temporal lobe measuring 1.5 x 1.0 cm with surrounding edema. Increased attenuation lesion overlying the LEFT tentorium measuring 7 mm. Additio nal small increased attenuation lesion about the LEFT frontal horn measuring 7 mm. Additional suspect ed lesion in the parasagittal RIGHT frontal lobe abutting the dura measuring 1.4 cm. Additional suspe cted lesion overlying the LEFT frontal lobe. Additional areas of edema in the cerebellar hemispheres bilaterally. Findings are suspicious for meta static disease in particular melanoma metastasis considering clinical history.. Paranasal sinuses and mastoid air cells are well aerated. Normal posterior nasopharynx. IMPRESSION: 1. Interval development of diffuse areas of deep white matter and subcortical edema with suspected m etastatic lesions the largest overlying the LEFT temporal lobe measuring 1.5 x 1.0 cm. Consider metas tatic melanoma considering clinical history. 2. Additional smaller lesions about the LEFT frontal horn, LEFT tentorium, and bilateral frontal lob es. Additional lesions would be better evaluated with MRI without and with gadolinium. 3. Diffuse cerebral edema with effacement of the overlying sulci. Mild supratentorial mass effect wi th partial effacement of suprasellar cistern. 4. Partial effacement of the ambient cisterns bilaterally. Effacement of the LEFT lateral ventricle and third ventricle. 5. RIGHT to LEFT midline shift measuring 3 mm. 6. Additional edema in the cerebellar hemispheres bilaterally with suspected occult lesions. Notified Britton Cantu DO at 12/19/2022 3:13 PM.
--- NOTE | 2022-12-19 14:04 | ECG_ITS ---
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 Measurements Intervals [place] Rate: 58 P: 88 DC: 201 QRS: 30 QRSD: 99 T: 45 QT: 409 QTc: 402 Interpretive Statements SINUS BRADYCARDIA Compared to ECG 08/13/2022 17:16:04 Bradycardia, nonsinus no longer present First degree AV block no longer present Incomplete right bundle-branch block no longer present Electronically Signed On 12-19-2022 23:18:00 SOURCER by Huseyin Parsons M.D. [id number]
[2022-12-19 14:32] LABS: Glucose Urine UA Norm (Normal); Ketones Urine 1+ (Negative); Protein Urine Neg (Negative); Urine Appearance Clear (CLEAR); Urine Color Dark Yellow (Yellow); pH Urine 6 (5-7)
[2022-12-19 14:33] LABS: Add Urine Microscopic? YES; Bilirubin Urine Neg (Negative); Blood Urine 2+ (Negative); Leukocyte Esterase Urine Negative (Negative); Nitrate Urine Negative (Negative); Urobilinogen Urine Norm (Negative)
[2022-12-19 14:34] LABS: Add Urine Culture? No; Mucus Urine 1+ /hpf; RBC Urine 0-4 /hpf (0-2)
[2022-12-19 14:36] LABS: Troponin(5th) Baseline 9 ng/L (0-15)
[2022-12-19 14:49] LABS: Troponin 5 2HR 8.25 ng/L (0-15); Troponin 5 2HR Delta -0.75 ABS# (0-10)
[2022-12-19] MEDS: dexamethasone 10 mg/mL INJ IVP (15:24)
[2022-12-19 15:25] VITALS: BP 121/73; PULSE 50; RESP 18; O2SAT 97
--- NOTE | 2022-12-19 16:13 | ECG_ITS ---
[facility] Test Date: 2022-12-19 Pat Name: Ilir Correa Department: Room: Gender: Male Photographer Portrait: : 1945 Requested By: Britton Narayanan Order Number: [id number] Teena MD: Huseyin Parsons M.D. Measurements Intervals [place] Rate: 59 P: 88 DC: 207 QRS: -17 QRSD: 98 T: 37 QT: 423 QTc: 422 Interpretive Statements SINUS BRADYCARDIA Compared to ECG 12/19/2022 11:50:57 No significant changes Electronically Signed On 12-19-2022 23:28:49 AERIAL TRAM OPERATOR by Huseyin Parsons M.D. [id number]
== END 2022-12-19 16:32 | disposition home or self-care (01) ==
PROVIDERS: Emergency Medicine; Emergency Provider Family Medicine; PCP Family Medicine
DX: C49.0 Malignant neoplasm of connective and soft tissue of head, face and neck (principal); C79.31 Secondary malignant neoplasm of brain; Z86.73 Personal history of transient ischemic attack (TIA), and cerebral infarction without residual deficits
CPT/HCPCS: 36415; 70450; 80053; 81001; 83735; 84484; 85007; 85025; 93005; 96374; 99284; J1100

== ENCOUNTER 2023-01-04 12:48 | Oncology outpatient (recurring) (ONCR) | payer MEDICARE, BC, SELFPAY ==
--- NOTE | 2022-12-21 08:48 | N.ONRAD NP_ITS ---
Radiation Oncology New Patient Visit Patient: Ilir Correa MR#: [id number] : 1945 Age: 77 Sex: Male Dictated by: Isrrael Davis Date of Service: 12/20/2022 Referring Physician(s) : ER referal Diagnosis: C79.31 - secondary malignant neoplasm of brain, Diagnosed 12/19/2022 (active) and C43.9 - malignant melanoma of skin, unspecified, Diagnosed 12/21/2020 (active). 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 Now with multiple brain metastases seen on CT head 12/19/2022. Now on dexamethasone with improvement. Radiotherapy to date: Summary > No prior radiation therapy. Chief Complaint / History of Present Illness: 77 year old man with previous history of ataxia 08/[address] and MRI without contrast here were negative. Now with progressive unsteadiness, difficulty with walking resulting in non-traumatic falls. Confusion and difficulty with speech. Some SAAVEDRA. No N or V. No seizures. Now on dexamethasone 4 mg QID with some improvement Previous cutaneous melanoma resected from his right posterior lateral neck here 12/2020. Crawford level V. No follow up noted. CT here in ER 12/19/2022 without contrast. Multiple regions of white matter and subcortical edema in cerebral and cerebellar hemispheres. Comingled with edema were several hyper-dense lesions compatible with metastatic melanoma to brain. Current Medications: dexamethasone 4 mg po QID. Medical History: No history of collagen vascular disease. No previous radiation therapy. Surgical History: Cutaneous melanoma resected as noted 08/2020 Family History: not obtained. Social History: Single. Never . Living independently in his own home. 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 Moved here from [place]. Here with his cousin who lives here Vicente Gutierrez. Vital Signs: Performed on 12/20/2022 1:12 PM BMI - 22.666 kg/m2, Height - 73 in, Weight - 171.8 lbs, Temperature - 97.8 f, Pulse - 66 /min, Respiration - 16 /min, O2 Sat - 98 %, Pain - 0, Fatigue - 10 and BP - 115/ 69 mm(hg). Physical Exam: Pleasant with obvious speech hesitancy. Here with cousin Vicente Gutierrez. No palpable adenopathy. Right neck incision well healed. No skin lesions of subcut masses felt. Diffuse left sided weakness, decreased left had function by rapid alternating motion. Unsteady, russel-paretic gait. 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 Some improvement with dexamentasone. Recommend continuing steroids with 30 Gy of whole brain radiation treatment. He needs senior care placement and he is agreeable to this. Machine Stone Polisher Apprentice here is involved with this now. Recommended DNR status as part of his advanced directives. He needs a walker now for clear medical need to avoid future falls. He has upper body strength to manage the walker and needs the walker to manage his ADLs. We will also schedule baseline restaging PET/CT scan, tissue and lab for biomarker assessment and med onc referral to discuss systemic immunotherapy treatment. He will also see general surgery for port placement. Signed by: 12/24/2022 3:23:28 PM <<Signature on File>> Time spent with patient: CPT Code: CPT Code:
--- NOTE | 2022-12-21 14:24 | ONCRAD TMN_ITS ---
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 Radiotherapy to date: Course: WholeBrain 2022, Treatment Site: [id number], Ref. ID: [id number], Energy: 15X, Dose/Fx (cGy): 300, #Fx: , Dose Correction (cGy): 0, Total Dose (cGy): 300, Start Date: 12/21/2022, Elapsed Days: 0 Reason for visit: The patient is being seen today as part of their regularly scheduled weekly on treatment visits to assess for acute toxicities from radiotherapy. Review of Systems: He is still experiencing some falls. He now has a reoom [facility] the [facility]. Imaging: Radiation therapy imaging related to accurate target localization (i.e. KV, MV and CBCT) was reviewed. Appropriate changes, if any, were made to ensure treatment accuracy. Plan: Continue whole brain radiation and dexamethasone. Lab and tissue testing for genomic-biomarkers. PET/CT ordered for restaging. Med onc referral made. Surgical referral for possible port placement. Signed by: Isrrael Davis 12/21/2022 2:23:04 PM
--- NOTE | 2022-12-26 15:51 | ONCRAD TMN_ITS ---
Radiation Oncology Weekly Treatment Management Patient: Sunny Hazel MR#: [id number] : 1945 Attending Physician: Ron Sierra Date of Service: 12/26/2022 Referring Physician(s) : Diagnosis: C79.31 - Secondary malignant neoplasm of brain, Diagnosed 12/19/2022 (Active) C43.9 - Malignant melanoma of skin, unspecified, Diagnosed 12/21/2020 (Active) Radiotherapy to date: Course: WholeBrain 2022, Treatment Site: [id number], Ref. ID: [id number], Energy: 15X, Dose/Fx (cGy): 300, #Fx: 4 / 10, Dose Correction (cGy): 0, Total Dose (cGy): 1,200, Start Date: 12/21/2022, Elapsed Days: 5 Reason for visit: The patient is being seen today as part of their regularly scheduled weekly on treatment visits to assess for acute toxicities from radiotherapy. Review of Systems: Mr. Correa is checking in to [facility]. He is still having falls. He states he is usually experiencing some dizziness before he falls. He confirms that he is taking steroids 4 times a day but he does not know the the dose per pill. I have asked that he try to bring in a list of [facility] tomorrow. In addition he is having morning headaches. He does have them at other times during the day but the morning headaches are more severe. He takes Tylenol which is of some benefit. He has no skin complaints. Vital Signs: Performed on 12/26/2022 1:03 PM BMI - 23.379 kg/m2 (high), Height - 73 in, Weight - 177.2 lbs, Temperature - 97.1 f, Pulse - 66 /min, Respiration - 16 /min, O2 Sat - 98 %, Pain - 9, Fatigue - 0 and BP - 123/ 66 mm(hg). Physical Exam: Alert and oriented. He appears chronically ill. He has no skin reaction. He is ambulatory without assistance. Oral cavity exam reveals mucous membranes to be moist. No evidence of yeast. Imaging: Radiation therapy imaging related to accurate target localization (i.e. KV, MV and CBCT) was reviewed. Appropriate changes, if any, were made to ensure treatment accuracy. Plan: Continue radiation per plan. Get [facility] list [facility] so we can know his precise dose of steroids. Continue Tylenol for the headaches. He has a walker and I told him he needs to use it. Signed by: Ron Sierra 12/26/2022 3:50:00 PM
[2023-01-01 08:49] VITALS: BP 118/59; PULSE 57; RESP 18; TEMP 36.7; O2SAT 98
[2023-01-01 09:24] LABS: Basophils % 0.2 %; Eosinophils % 0.1 %; Hematocrit 43.4 % (37-53); Lymphocytes # 1.1 10^3/uL (0.8-4.8); Lymphocytes % 5.3 %; Mean Corpuscular HGB Conc 32.7 g/dL (30-55); Mean Corpuscular Hemoglobin 31.8 pg (27-33); Mean Corpuscular Volume 97.1 fl (82-101); Mean Platelet Volume 9.4 fL (7.4-10.4); Monocytes # 1.2 10^3/uL (0.2-0.9); Monocytes % 5.8 %; Neutrophils % 86.8 %; Nucleated Red Blood Cells % 0 %; Platelet Count 288 10^3/cmm (157-399); Red Blood Count 4.47 10^6/uL (3.85-5.65); Red Cell Distribution Width 13.6 % (12.1-15.1); White Blood Count 19.79 10^3/uL (3.29-11.43)
[2023-01-01 09:53] LABS: Alanine Aminotransferase 101 U/L (0-41); Albumin Level 3.9 g/dL (3.5-5.2); Alkaline Phosphatase 66 U/L (40-130); Anion Gap 9.1 (5-19); Aspartate Amino Transferase 44 U/L (0-40); Blood Urea Nitrogen 23 mg/dL (8-23); Calcium 9.4 mg/dL (8.5-10.5); Carbon Dioxide 32 mmol/L (22-29); Chloride 98 mmol/L (98-107); Globulin 2.2 g/dL (1.3-4.6); Glucose 98 mg/dL (65-115); Lactate Dehydrogenase 205 U/L (135-225); Osmolality Calculated 284 mOsm/kg (285-295); Potassium 4.1 mmol/L (3.5-5.1); Sodium 135 mmol/L (136-145); Thyroid Stimulating Hormone 0.71 uIU/mL (0.27-4.20); Total Bilirubin 0.4 mg/dL (0.15-1.2); Total Protein 6.1 g/dL (6.6-8.7)
--- NOTE | 2023-01-02 14:44 | ONCRAD TMN_ITS ---
Radiation Oncology Weekly Treatment Management Patient: Sunny Hazel MR#: [id number] : 1945 Attending Physician: Johnny Mae Date of Service: 01/02/2023 Referring Physician(s) : Diagnosis: C79.31 - Secondary malignant neoplasm of brain, Diagnosed 12/19/2022 (Active) C43.9 - Malignant melanoma of skin, unspecified, Diagnosed 12/21/2020 (Active) Radiotherapy to date: Course: WholeBrain 2022, Treatment Site: [id number], Ref. ID: [id number], Energy: 15X, Dose/Fx (cGy): 300, #Fx: 10, Dose Correction (cGy): 0, Total Dose (cGy): 2,100, Start Date: 12/21/2022, Elapsed Days: 12 Reason for visit: The patient is being seen today as part of their regularly scheduled weekly on treatment visits to assess for acute toxicities from radiotherapy. Review of Systems: Patient is present today with his brother from [facility] and 2 of his nieces. He continues on dexamethasone and reports diminished symptoms of the left arm and denies recent falls. He is in a local skilled nursing. Vital Signs: Performed on 01/02/2023 12:59 PM BMI - 24.619 kg/m2 (high), Height - 73 in, Weight - 186.6 lbs, Temperature - 97.9 f, Pulse - 54 /min (low), Respiration - 16 /min, O2 Sat - 98 %, Pain - 0, Fatigue - 0 and BP - 123/ 70 mm(hg). Physical Exam: Patient is alert and oriented. He is ambulatory without assistance. Imaging: Radiation therapy imaging related to accurate target localization (i.e. KV, MV and CBCT) was reviewed. Appropriate changes, if any, were made to ensure treatment accuracy. Plan: Continue prescribed radiation therapy to the whole brain. Treatment plan including PET/CT which has been ordered but not yet scheduled and medical oncology consult were discussed with the patient and his family members who are also present. CT of the head was reviewed with the patient and his family members also. Signed by: Johnny Mae 01/02/2023 2:42:48 PM
== END 2023-01-04 23:59 | disposition home or self-care (01) ==
PROVIDERS: Internal Medicine Medical Oncology; PCP Family Medicine; Visit Provider Radiology Radiation Oncology
DX: Z51.0 Encounter for antineoplastic radiation therapy (principal); C79.31 Secondary malignant neoplasm of brain; C43.9 Malignant melanoma of skin, unspecified
CPT/HCPCS: 36415; 77263; 77290; 77295; 77300; 77334; 77336; 77387; 77412; 77417; 80053; 83615; 84443; 85025; 99024; 99205

== ENCOUNTER 2023-01-05 09:26 | Oncology outpatient (recurring) (ONCR) | payer MEDICARE, BC, SELFPAY ==
--- NOTE | 2023-01-05 10:38 | N.ONRD TS_ITS ---
Radiation Oncology Treatment Summary Patient: Ilir Correa MR#: [id number] : 1945 Age: 77 Sex: Male Dictated by: Johnny Mae Date of Service: 01/05/2023 Referring Physician(s) : Sarbjit Garcia MD Diagnosis: C79.31 - Secondary malignant neoplasm of brain, Diagnosed 12/19/2022 (Active) C43.9 - Malignant melanoma of skin, unspecified, Diagnosed 12/21/2020 (Active) Radiotherapy to Date: Course: WholeBrain 2022, Treatment Site: [id number], Ref. ID: [id number], Energy: 15X, Dose/Fx (cGy): 300, #Fx: 10, Dose Correction (cGy): 0, Total Dose (cGy): 3,000, Start Date: 12/21/2022, End Date: 01/05/2023, Elapsed Days: 15 Clinical Summary: The patient tolerated RT well. The patient is adjusting to his longterm placement and has excellent support from his family. Plan: End of treatment today. Continue on the above medication until the skin reaction resolves. Follow up in one month. Patient is being evaluated by Dr. Garcia in medical oncology and will continue follow-up with Dr. Garcia also. Signed by: Johnny Mae>01/05/2023 10:37:16 AM <<Signature on File>>
== END 2023-02-04 23:59 | disposition home or self-care (01) ==
PROVIDERS: PCP Family Medicine; Visit Provider Radiology Radiation Oncology
DX: Z51.0 Encounter for antineoplastic radiation therapy (principal); C79.31 Secondary malignant neoplasm of brain; C43.9 Malignant melanoma of skin, unspecified; R29.6 Repeated falls; Z79.52 Long term (current) use of systemic steroids; R42 Dizziness and giddiness; R51.9 Headache, unspecified
CPT/HCPCS: 77336; 77387; 77412; 77427; 99024; G6002

== ENCOUNTER 2023-01-16 14:13 | Outpatient (CLI) | payer MEDICARE, BC, SELFPAY ==
--- NOTE | 2023-01-16 08:00 | PETR_ITS ---
PROCEDURE INFORMATION: Exam: PET/CT Whole Body Exam date and time: 01/16/2023 8:51 AM Age: 77 years old Clinical indication: Condition or disease; Condition/disease: Metastatic melanoma to brain following primary resection. LABS AND CLINICAL REPORTS: Glucose: 101 mg/dl Treatment strategy for malignancy (PET staging): Initial Staging (PI) TECHNIQUE: Imaging protocol: Following at least four-hour fasting and following the injection of radiopharmaceutical, low dose CT images were obtained. Then, PET images were obtained. Attenuation corrected images were constructed using the CT scan. Fused images of PET and CT were reviewed. The standardized uptake values (SUV) reported below are maximum values within a region of interest, expressed in gm/ml. Exam includes the whole body. Radiopharmaceutical: 13.45 mCi F-18 FDG (Fluorodeoxyglucose), IV. Time of imaging post radiopharmaceutical administration: 1 hour Injection site: Right antecubital vein COMPARISON: CT head wo con* [id number] 12/19/2022 2:45 PM FINDINGS: Brain: FDG avid nodular foci in bilateral frontal lobes, right parietal lobe and the right occipital lobe with adjacent hypodensity represents known brain metastases. There is no midline shift. Pharynx: No abnormal uptake. Larynx: No abnormal uptake. Lungs, pleura and trachea: 1.6 cm perihilar nodule in the left lower lobe on axial image 113 measures 10.3 SUV. No pleural effusion. Heart: Normal physiologic uptake. There is no cardiomegaly. Mild coronary artery calcification is present. There is no pericardial effusion. Mediastinal space: See below in lymph nodes . Liver: Multiple small foci of abnormal uptake up to 5.6 SUV suggestive of bilobar metastases. Gallbladder and bile ducts: No abnormal uptake. No calcified gallstones. Pancreas: No abnormal uptake. Spleen: No abnormal uptake. No splenomegaly. Adrenal glands: No abnormal uptake. No nodules. Kidneys and ureters: Normal physiologic uptake. No hydronephrosis. Small nonobstructive bilateral renal stones. Stomach and bowel: No abnormal uptake. Intraperitoneal and retroperitoneal spaces: No abnormal uptake. Small amount of free intraperitoneal fluid in the pelvis. Bladder: Normal physiologic uptake. Reproductive: No abnormal uptake. Enlarged prostate. Vasculature: No abnormal uptake. No aortic aneurysm. Lymph nodes: Left anterior hilar metastatic lymph node with a short axis of 1.7 cm measures 18.2 SUV. Right upper hilar nodule on axial image 113 measures 14.2 SUV. No FDG avid lymphadenopathy in the head, neck, abdomen, pelvis, and extremities. Bones/joints: There are FDG avid findings in the bones suggestive of bone metastases with no corresponding lytic or sclerotic lesions on CT as follows: - left posterior aspect of T5 vertebral body axial image 100 uptake of 5.8 SUV; - Left aspect of T10 vertebral body axial image 143 uptake of 10.4 SUV; - right scapula axial image 95 uptake 4.8 SUV; - Posterior aspect of the left iliac bone on image 211 measures 4.8 SUV; - Small focus in the left side of the coccyx on image 241 measures 3.4 SUV; - Small ill-defined focus in the right acetabular roof on axial image 245 measures 2.7 SUV. Soft tissues: There are small soft tissue metastases as follows: - elongated focus of increased uptake of 7.3 SUV in the right parapharyngeal/right extrusion supervisor space on axial image 58; -1 cm subcutaneous nodule in the midline in the posterior neck on axial image 62 measures 3.4 SUV; - 1.1 cm left omental nodule on axial image 192 measures 3.3 SUV; - 1 cm nodule in the right groin on axial image 262 measures 4.2 SUV; - Small intramuscular focus within the left gluteal muscle on image 257 measures 1.9 SUV. PET/PET WB melanoma INITIAL [id number] IMPRESSION: There is disseminated metastatic disease with multifocal involvement of the brain, bones, liver, soft tissues, mediastinal and hilar lymph nodes. Perihilar nodule in the left lower lobe may represent metastatic lymph node or lung metastasis.
== END 2023-01-16 14:14 | disposition home or self-care (01) ==
LOC: RAD 14:13
PROVIDERS: PCP Family Medicine; Visit Provider Radiology Radiation Oncology
DX: C79.31 Secondary malignant neoplasm of brain (principal); C79.51 Secondary malignant neoplasm of bone; C78.7 Secondary malignant neoplasm of liver and intrahepatic bile duct; C77.1 Secondary and unspecified malignant neoplasm of intrathoracic lymph nodes; R91.1 Solitary pulmonary nodule; C79.89 Secondary malignant neoplasm of other specified sites; C43.9 Malignant melanoma of skin, unspecified
CPT/HCPCS: 78816; A9552

== ENCOUNTER 2023-01-30 02:18 | Emergency (ER) | payer MEDICARE, BC, SELFPAY ==
[2023-01-30] VITALS (7 sets, daily range): BP systolic 95–126; BP diastolic 51–99; PULSE 50–60; RESP 15–16; TEMP 36.7; O2SAT 96–98; BMI 38.7
--- NOTE | 2023-01-30 02:27 | CTR_ITS ---
PROCEDURE INFORMATION: Exam: CT Head Without Contrast Exam date and time: 01/30/2023 3:28 AM Age: 77 years old Clinical indication: Injury or trauma; Blunt trauma (contusions or hematomas); Patient HX: EMS arrival from care home for multiple falls over last 12 hours. Anticoagulated. Focal C/O left upper lateral chest wall pain. History of CVA with brain cancer. Melanoma to RT side of neck. ; Additional info: Fall head inj TECHNIQUE: Imaging protocol: Computed tomography of the head without contrast. Radiation optimization: All CT scans at this facility use at least one of these dose optimization techniques: automated exposure control; mA and/or kV adjustment per patient size (includes targeted exams where dose is matched to clinical indication); or iterative reconstruction. REPORTING DATA: Count of CT and Cardiac NM exams in prior 12 months: This patient has received 4 known CTs and 0 known cardiac nuclear medicine studies in the 12 months prior to the current study. COMPARISON: PT PET WB melanoma INITIAL [id number] 01/16/2023 8:51 AM RADIATION DOSE METRICS: Total DLP (mGy-cm): 1198.78 FINDINGS: Brain: Widespread dense and necrotic brain metastases are again seen with large amount of surrounding vasogenic edema. In general, the brain metastases are mildly larger by about 25%. No new hemorrhage. Small left pontine low-density, which may be due to CVA, artifact, or metastatic disease. Unchanged minimal leftward midline shift from prior. Unchanged tentorium and basilar cistern mass effect. Cerebral ventricles: No ventriculomegaly or evidence of acute hydrocephalus. Paranasal sinuses: The partially assessed sinuses are grossly clear. Mastoid air cells: Visualized mastoid air cells are well aerated. Bones/joints: No displaced skull fracture is noted. Soft tissues: Unremarkable. Vasculature: Advanced diffuse vascular calcification noted. CT/CT head wo con* [id number] IMPRESSION: 1. Exam compared with 12/19/2022. 2. No focal hemorrhage has developed. Unchanged minimal leftward midline shift when compared to prior. 3. Widespread DIRECTOR MEDICAL ECONOMICS known metastatic disease again seen, progressive from 12/19/2022. 4. Small left pontine low-density, which may be due to CVA, artifact, or metastatic disease.
--- NOTE | 2023-01-30 02:27 | CTR_ITS ---
PROCEDURE INFORMATION: Exam: CT Cervical Spine Without Contrast Exam date and time: 01/30/2023 3:31 AM Age: 77 years old Clinical indication: Injury or trauma; Blunt trauma; Prior surgery; Surgery date: 6+ months; Surgery type: Tonsillectomy; Patient HX: EMS arrival from skilled nursing for multiple falls over last 12 hours. Anticoagulated. Focal C/O left upper lateral chest wall pain. History of CVA with brain cancer. Melanoma to RT side of neck. ; Additional info: Fall head inj TECHNIQUE: Imaging protocol: Computed tomography of the cervical spine without contrast. Radiation optimization: All CT scans at this facility use at least one of these dose optimization techniques: automated exposure control; mA and/or kV adjustment per patient size (includes targeted exams where dose is matched to clinical indication); or iterative reconstruction. REPORTING DATA: Count of CT and Cardiac NM exams in prior 12 months: This patient has received 4 known CTs and 0 known cardiac nuclear medicine studies in the 12 months prior to the current study. COMPARISON: PT PET WB melanoma INITIAL [id number] 01/16/2023 8:51 AM RADIATION DOSE METRICS: Total DLP (mGy-cm): 459.87 FINDINGS: Bones/joints: No acute fracture. There is mild to moderate cervical degenerative change with loss of disc space and osteophyte formation. No jumped, locked or perched facets are visualized. No aggressive bone lesion is noted. Lungs: Lung apices show no acute process. Vasculature: Advanced diffuse vascular calcification noted. Soft tissues: A PET positive right level 2 node is again seen on series 5, image 26. Posterior neck node as well. See the 01/16/2023 PET-CT for more details. Few minute subcentimeter thyroid nodularities are of doubtful clinical significance. CT/CT cervical spin wo con* [id number] IMPRESSION: 1. No acute fracture is seen in the cervical spine. 2. Mild to moderate cervical degenerative change as discussed. Other chronic findings above. 3. Known PET positive mild cervical lymphadenopathy. See the 01/16/2023 PET-CT for more details. 4. See same-day head CT as well.
--- NOTE | 2023-01-30 02:52 | XRR_ITS ---
PROCEDURE INFORMATION: Exam: XR Chest Exam date and time: 01/30/2023 2:55 AM Age: 77 years old Clinical indication: Injury or trauma; Blunt trauma (contusions or hematomas); Patient HX: [facility] over last 12 hours. Anticoagulated. Focal C/O left upper lateral chest wall pain. History of CVA with brain cancer. Melanoma to RT side of neck. ; Additional info: Fall left sided chest pain TECHNIQUE: Imaging protocol: Radiologic exam of the chest. Views: 1 view. COMPARISON: CR XR chest 2V* [id number] 03/25/2021 9:39 AM FINDINGS: Lungs: Unremarkable. No consolidation. Pleural spaces: Unremarkable. No pleural effusion. No pneumothorax. Heart/Mediastinum: Unremarkable. No cardiomegaly. Bones/joints: Unremarkable. XR/XR chest 1V portable [id number] IMPRESSION: No acute findings.
[2023-01-30 02:59] LABS: Basophils % 0.3 %; Eosinophils % 0.1 %; Hematocrit 42.7 % (37-53); Lymphocytes # 0.9 10^3/uL (0.8-4.8); Lymphocytes % 5.9 %; Mean Corpuscular HGB Conc 33.3 g/dL (30-55); Mean Corpuscular Hemoglobin 31.8 pg (27-33); Mean Corpuscular Volume 95.5 fl (82-101); Mean Platelet Volume 8.6 fL (7.4-10.4); Monocytes # 0.5 10^3/uL (0.2-0.9); Monocytes % 3.3 %; Neutrophils # 13.15 10^3/uL (1.8-7.7); Neutrophils % 86.5 %; Nucleated Red Blood Cells % 0 %; Platelet Count 189 10^3/cmm (157-399); Red Blood Count 4.47 10^6/uL (3.85-5.65); Red Cell Distribution Width 15.1 % (12.1-15.1); White Blood Count 15.21 10^3/uL (3.29-11.43)
[2023-01-30 03:05] LABS: INR 1.01 (0.8-1.2)
[2023-01-30 03:06] LABS: Partial Thromboplastin Time 26.9 SECONDS (23.9-36.7)
[2023-01-30 03:10] LABS: Alanine Aminotransferase 89 U/L (0-41); Albumin Level 3.7 g/dL (3.5-5.2); Alkaline Phosphatase 57 U/L (40-130); Anion Gap 11.4 (5-19); Aspartate Amino Transferase 33 U/L (0-40); Blood Urea Nitrogen 17 mg/dL (8-23); C Reactive Protein 9.9 mg/L (0.0-4.9); Calcium 9.1 mg/dL (8.5-10.5); Carbon Dioxide 31 mmol/L (22-29); Chloride 101 mmol/L (98-107); Globulin 2.2 g/dL (1.3-4.6); Glucose 125 mg/dL (65-115); Osmolality Calculated 291 mOsm/kg (285-295); Potassium 4.4 mmol/L (3.5-5.1); Sodium 139 mmol/L (136-145); Total Bilirubin 0.5 mg/dL (0.15-1.2); Total Protein 5.9 g/dL (6.6-8.7)
[2023-01-30] MEDS: morphine 4 mg/mL SDV 1 mL IVP (03:15)
[2023-01-30] MEDS: ondansetron 2 mg/ML SDV 2 mL 4 MG IVP (03:15)
[2023-01-30] MEDS: sodium chloride 0.9% 500 ML IV (03:15)
--- NOTE | 2023-01-30 03:24 | CTR_ITS ---
PROCEDURE INFORMATION: Exam: CT Chest Without Contrast; Diagnostic Exam date and time: 01/30/2023 3:34 AM Age: 77 years old Clinical indication: Injury or trauma; Blunt trauma (contusions or hematomas); Patient HX: EMS arrival from shelter for multiple falls over last 12 hours. Anticoagulated. Focal C/O left upper lateral chest wall pain. History of CVA with brain cancer. Melanoma to RT side of neck. ; Additional info: Fall left side chest pain TECHNIQUE: Imaging protocol: Diagnostic computed tomography of the chest without contrast. Radiation optimization: All CT scans at this facility use at least one of these dose optimization techniques: automated exposure control; mA and/or kV adjustment per patient size (includes targeted exams where dose is matched to clinical indication); or iterative reconstruction. REPORTING DATA: Count of CT and Cardiac NM exams in prior 12 months: This patient has received 4 known CTs and 0 known cardiac nuclear medicine studies in the 12 months prior to the current study. COMPARISON: PT PET WB melanoma INITIAL [id number] 01/16/2023 8:51 AM RADIATION DOSE METRICS: Total DLP (mGy-cm): 1267.13 FINDINGS: Lungs: Unremarkable. No consolidation. No masses. Pleural spaces: Small bilateral pleural effusions Heart: Unremarkable. No cardiomegaly. No pericardial effusion. Coronary arteries: No coronary artery calcification Lymph nodes: Unremarkable. No enlarged lymph nodes. Vasculature: Unremarkable. No aortic aneurysm. Kidneys and ureters: Nonobstructing calculi in the kidneys. Bones/joints: Exaggerated thoracic kyphosis Soft tissues: Unremarkable. CT/CT chest wo con [id number] IMPRESSION: Small bilateral pleural effusions. No evidence of acute fracture.
[2023-01-30 03:27] LABS: Urine Color Light yellow (Yellow)
[2023-01-30 03:28] LABS: Add Urine Culture? No; Add Urine Microscopic? YES; Amorphous Sediment Urine 2+ /hpf; Bacteria Urine TRACE /hpf; Bilirubin Urine Neg (Negative); Blood Urine Neg (Negative); Glucose Urine UA Norm (Normal); Ketones Urine Negative (Negative); Leukocyte Esterase Urine Negative (Negative); Nitrate Urine Negative (Negative); Protein Urine Neg (Negative); Sulfosalicylic Acid Urine Negative (Negative); Urine Appearance SL Hazy (CLEAR); Urobilinogen Urine Neg (Negative); pH Urine 8 (5-7)
--- NOTE | 2023-01-30 05:31 | ED_ITS ---
HPI - Fall 2 General: Chief Complaint: Fall Stated Complaint: FALL Time Seen by Provider: 01/30/23 02:52 History of Present Illness: 77-year-old male gentleman who has falle n 3 times in the last 12 hours or so. He is on Eliquis. 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 There was Some concern over possible increase in left-sided weakness which the patient says is new. This is several hours old now. No language or vision problems that are new. Associated symptoms-after fall: Reports chest pain (left sided pleuritic) and headache(s); Denies abdominal pain or confusion Review of Systems 2 Const: Denies: fever(s), chills or body aches Eyes: Denies: change in vision Card: Reports: chest pain (left sided pleuritic); Denies: palpitations Resp: Denies: dyspnea, productive cough, non-productive cough or wheezing GI: Denies: abdominal pain, nausea, vomiting, diarrhea or hematochezia Skin/Breast: Denies: rash Neuro: Reports: headache(s); Denies: weakness in extremities, dizziness or confusion PFSH ED 2 PFSH: Medical History (Updated 01/30/23 @ 05:34 by Gavino Vega DO) Atrial fibrillation CVA (cerebral vascular accident) Family history of malignant melanoma Malignant melanoma T2bN0, right posterior neck BPH loc w urin obs/LUTS History of herniated intervertebral disc Since he was at least 32years old. 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 It does not affect his life and he does not take any medications for it. Renal and ureteric calculus Urolithiasis Surgical History H/O melanoma excision (01/19/21) Wide local excision with sentinel lymph node biopsy History of tonsillectomy H/O lithotripsy ESWL Family History Mother , AT AGE 90 Diabetes CHF (congestive heart failure) CAD (coronary artery disease) Father CHF (congestive heart failure) AT AGE 92 CAD (coronary artery disease) Dementia Brother Protein S deficiency Unknown No problems noted. Family/Other Protein S deficiency His brother w/ Protein S deficiency's 2 daughters (Patient's 2 nieces). One of the niece's 2 daughters. Bleeding disorder Clotting disorder Denies family history of Suicide Anesthesia complication Lung disease Cancer Stroke Social History Smoking and tobacco/nicotine status: never used tobacco/nicotine Alcohol intake: never Substance/Drug Use: never Marital status: Single Current occupational status: retired Physical Exam 2 Const: COMMON NORMALS: no acute distress and alert GENERAL APPEARANCE: c ooperative and frail appearing; not ill appearing HENMT: COMMON NORMALS: normocephalic, atraumatic and Normal external nose present HEAD & SCALP: normocephalic and atraumatic FACE & SINUS: normal facial exam and face symmetric NOSE: Normal external nose present Eye: COMMON NORMALS: Equal, round and reactive pupils present and EOMs intact bilaterally PUPIL: Yes Equal, round and reactive pupils present Neck/C-Spine: GENERAL: Yes trachea midline Chest: CHEST: Yes Symmetrical chest wall rise Resp: COMMON NORMALS: normal respiratory effort, No retractions, No use of accessory muscles and clear to auscultation bilaterally AUSCULTATION: clear to auscultation bilaterally Cardio: COMMON NORMALS: regular rate and regular rhythm RATE: regular rate RHYTHM: regular rhythm GI: COMMON NORMALS: Normal to inspection, nondistended, normoactive bowel sounds present Extremity: COMMON NORMALS: no pedal edema Neuro: DOC COMA SCALE: document GCS findings Caraway coma scale eye opening: Spontaneous [place] coma scale verbal response: Orientated Doc coma scale motor response: Obey commands Doc coma scale total score: 15 S ENSORIUM/ORIENTATION: Yes alert CRANIAL NERVES: Yes CN normal except as noted COORDINATION/BALANCE: [id number] test normal SPEECH: speech normal SENSORY EXAM: Yes extremities (intact) COORDINATION: [id number] test normal Psych: COMMON NORMALS: speech normal SPEECH: Yes normal speech Skin: COMMON NORMALS: no rashes or lesions noted GENERAL SKIN EXAM: no rashes or lesions noted Course 2 Vital Signs: Vital signs: Vital Signs Temperature 98.0 F 01/30/23 06:45 Pulse Rate 60 01/30/23 07:41 Respiratory Rate 16 01/30/23 06:54 Blood Pressure 126/80 01/30/23 07:41 Pulse Oximetry 98 01/30/23 07:41 Oxygen Delivery Me thod Room Air 01/30/23 07:41 MDM - Fall Medical Decision Making CT of the head shows increased metastatic burden from prior, with no acute hemorrhage or CVA. Cervical spine is nonacute. Chest CT shows small bilateral pleural effusions with no contusion or fracture. Pain control, will allow back to the intermediate. Lab Data 01/30/23 02:06 01/30/23 02:06 Radiology Impressions Cervical Spine CT 01/30/23 02:27 IMPRESSION: 1. No acute fracture is seen in the cervical spine. 2. Mild to moderate cervical degenerative change as discussed. Other chronic findings above. 3. Known PET positive mild cervical lymphadenopathy. See the 01/16/2023 PET-CT for more details. 4. See same-day head CT as well. Head CT 01/30/23: IMPRESSION: 1. Exam compared with 12/19/2022. 2. No focal hemorrhage has developed. Unchanged minimal leftward midline shift when compared to prior. 3. Widespread [employer] known metastatic disease again seen, progressive from 12/19/2022. 4. Small left pontine low-density, which may be due to CVA, artifact, or metastatic disease. Chest X-Ray 01/30/23 02:52 IMPRESSION: No acute findings. Chest CT 01/30/23 03:24 IMPRESSION: Small bilateral pleural effusions. No evidence of acute fracture. Laboratory Results WBC 15.21 10^3/uL (3.29-11.43) H 01/30/23 02:06 RBC 4.47 10^6/uL (3.85-5.65) 01/30/23 02:06 Hgb 14.20 g/dL (11.27-16.99) 01/30/23 02:06 Hct 42.7 % (37-53) 01/30/23 02:06 MCV 95.5 fl (82-101) 01/30/23 02:06 MCH 31.8 pg (27-33) 01/30/23 02:06 MCHC 33.3 g/dL (30-55) 01/30/23 02:06 RDW 15.1 % (12.1-15.1) 01/30/23 02:06 Plt Count 189 10^3/cmm (157-399) 01/30/23 02:06 MPV 8.6 fL (7.4-10.4) 01/30/23 02:06 Neut % (Auto) 86.5 % 01/30/23 02:06 Lymph % (Auto) 5.9 % 01/30/23 02:06 [place] % (Auto) 3.3 % 01/30/23 02:06 Eos % (Auto) 0.1 % 01/30/23 02:06 Baso % (Auto) 0.3 % 01/30/23 02:06 Neut # (Auto) 13.15 10^3/uL (1.8-7.7) H 01/30/23 02:06 Lymph # (Auto) 0.9 10^3/uL (0.8-4.8) 01/30/23 02:06 [place] # (Auto) 0.5 10^3/uL (0.2-0.9) 01/30/23 02:06 Eos # (Auto) 0.0 10^3/uL (0.0-0.8) 01/30/23 02:06 Baso # (Auto) 0.0 10^3/uL (0.0-0.1) 01/30/23 02:06 Nucleated RBC % (auto) 0 % 01/30/23 02:06 Nucleated RBCs # 0.0 /100WBC 01/30/23 02:06 PT 13.60 SECONDS (12.1-14.9) 01/30/23 02:06 INR 1.01 (0.8-1.2) 01/30/23 02:06 APTT 26.9 SECONDS (23.9-36.7) 01/30/23 02:06 Sodium 139 mmol/L (136-145) 01/30/23 02:06 Potassium 4.4 mmol/L (3.5-5.1) 01/30/23 02:06 Chloride 101 mmol/L (98-107) 01/30/23 02:06 Carbon Dioxide 31 mmol/L (22-29) H 01/30/23 02:06 Anion Gap 11.4 (5-19) 01/30/23 02:06 BUN 17 mg/dL (8-23) 01/30/23 02:06 Creatinine 0.5 mg/dL (0.7-1.2) L 01/30/23 02:06 GFR Calculation Not Reportable 01/30/23 02:06 Glucose 125 mg/dL (65-115) H 01/30/23 02:06 Calculated Osmolality 291 mOsm/kg (285-295) 01/30/23 02:06 Calcium 9.1 mg/dL (8.5-10.5) 01/30/23 02:06 Total Bilirubin 0.5 mg/dL (0.15-1.2) 01/30/23 02:06 AST 33 U/L (0-40) 01/30/23 02:06 ALT 89 U/L (0-41) H 01/30/23 02:06 Alkaline Phosphatase 57 U/L (40-130) 01/30/23 02:06 C-Reactive Protein 9.9 mg/L (0.0-4.9) H 01/30/23 02:06 Total Protein 5.9 g/dL (6.6-8.7) L 01/30/23 02:06 Albumin 3.7 g/dL (3.5-5.2) 01/30/23 02:06 Globulin 2.2 g/dL (1.3-4.6) 01/30/23 02:06 Urine Color Light yellow (Yellow) 01/30/23 03:20 Urine Appearance Sl hazy (CLEAR) A 01/30/23 03:20 Urine pH 8 (5-7) H 01/30/23 03:20 Ur Specific [employer] 1.010 (1.005-1.030) 01/30/23 03:20 Urine Protein Neg (Negative) 01/30/23 03:20 Urine Glucose (UA) Norm (Normal) 01/30/23 03:20 Urine Ketones Negative (Negative) 01/30/23 03:20 Urine Blood Neg (Negative) 01/30/23 03:20 Urine Nitrate Negative (Negative) 01/30/23 03:20 Urine Bilirubin Neg (Negative) 01/30/23 03:20 Prot Sulfosalicylic Acd Negative (Negative) 01/30/23 03:20 Urine Urobilinogen Neg mg/dL (Negative) 01/30/23 03:20 Ur Leukocyte Esterase Negative (Negative) 01/30/23 03:20 Urine RBC None /hpf (0-2) 01/30/23 03:20 Urine WBC None /hpf (0-5) 01/30/23 03:20 Ur Squamous Epith Cells None /hpf (0-5) 01/30/23 03:20 Amorphous Sediment 2+ /hpf 01/30/23 03:20 Urine Bacteria Trace /hpf (NONE) 01/30/23 03:20 All radiology interpretation(s) finalized by discharge Discharge Plan Discharge Patient Disposition: Home Clinical Impression: Secondary malignant neoplasm of brain, Concussion without loss of consciousness, Chest wall contusion Condition: Stable Prescriptions: New hydrocodone-acetaminophen 5-325 mg tablet 1 tab PO Q8H PRN (Reason: pain) Qty: 7 0RF No Action Eliquis 5 mg tablet 5 mg PO BID (DME) wheeled seated walker See Rx Instructions .Route .MEDSUPPLY Qty: 1 0RF Rx Instructions: As directed trametinib 2 mg tablet 2 mg PO DAILY Qty: 28 11RF Rx Instructions: must be taken on empty stomach, at least 1 hr before or 2-3 hrs after meal/food dabrafenib 75 mg capsule 150 mg PO BID Qty: 112 11RF Rx Instructions: administer approximately 12 hours apart Centrum Silver Men 300-600-300 mcg Tablet 1 tab PO DAILY Magtab 84 mg tablet extended release 84 mg PO BID dexamethasone 4 mg tablet 4 mg PO QID Qty: 30 0RF Discharge Orders: Discharge ED (Routine); Ordered 01/30/23 Ordered By: Gavino Vega Referrals: Charlie Sears MD [Primary Care Provider] - 1-3 days Patient Instructions: Concussion (ED), Opioid Safety, Pain Management Activity Restrictions/Additional Instructions: Return for worsening mental status, worsening weakness, fever, seizure, vision or language problems, other concerning symptoms. See your doctor this week. Coding Level of Care Code ED Testing Analyst for Lesli Hickey
== END 2023-01-30 07:43 | disposition home or self-care (01) ==
PROVIDERS: Emergency Provider Emergency Medicine; PCP Family Medicine
DX: S06.0X0A Concussion without loss of consciousness, initial encounter (principal); S20.219A Contusion of unspecified front wall of thorax, initial encounter; C79.31 Secondary malignant neoplasm of brain; Z79.01 Long term (current) use of anticoagulants; Z86.73 Personal history of transient ischemic attack (TIA), and cerebral infarction without residual deficits; Z85.820 Personal history of malignant melanoma of skin; W19.XXXA Unspecified fall, initial encounter
CPT/HCPCS: 70450; 71045; 71250; 72125; 80053; 81001; 85025; 85610; 85730; 86140; 96374; 96375; 99285; J2270; J2405; J7040

== ENCOUNTER 2023-01-31 08:24 | Outpatient (CLI) | payer MEDICARE, BC, SELFPAY ==
--- NOTE | 2023-01-31 08:45 | MR_ITS ---
WS: [id number] MRI HEAD WITH CONTRAST TECHNIQUE: Sagittal T1, T2 axial, T2 axial FLAIR, axial susceptibility weighted imaging, axial diffus ion weighted images, and coronal T2 images were obtained. Pre and post-T1 axial and post T1 coronal i mages. ADC and FSPGR images. CLINICAL INFORMATION: melanoma COMPARISON: CT 01/30/2023 and MRI 08/14/2022 FINDINGS: Diffuse innumerable intracranial metastatic lesions are new since the prior MRI 08/14/2022 and similar in appearance to the recent CT 01/30/2023. Innumerable enhancing metastatic lesions throughout both hemispheres and cerebellum. Some of these metastatic lesions demonstrate T1 hyperintensity compatibl e with subacute hemorrhage. Largest area of hemorrhage involves the LEFT anterior temporal lobe measu ring approximately 2.5 x 2.2 x 3.3 cm. Additional tiny foci of subacute hemorrhage in the LEFT cerebe llum and posterior LEFT parahippocampal gyrus. Diffuse areas of subcortical edema throughout both hemispheres and cerebellum similar to the recent C T. Mass effect on the LEFT greater than RIGHT lateral ventricles with mild RIGHT to LEFT midline shif t measuring 3 mm. Basilar cisterns remain patent. Mild mass effect in the RIGHT frontal horn. Paranasal sinuses and mastoid air cells are well aerated. Normal posterior nasopharynx. Suprasellar cistern and ambient cisterns are patent. Fourth ventricle is patent. Additional areas of hemosiderin corresponding to chronic hemorrhage involving several supratentorial lesions. IMPRESSION: 1. Innumerable enhancing intraparenchymal, dural, pachymeningeal, and suspected subendymal metastati c lesions throughout both hemispheres and cerebellum. 2. Diffuse supra and infratentorial subcortical edema similar to the recent CT. Mild mass effect on the LEFT greater than RIGHT lateral ventricles with mild RIGHT to LEFT midline shift measuring 3 mm. Mild mass effect in the RIGHT frontal horn. 3. Basilar cisterns and suprasellar cistern remain patent. 4. Subacute hemorrhage involving a LEFT temporal lesion measuring 2.2 x 2.5 cm. Trace subacute hemor rhage involving a few cerebellar lesions and LEFT posterior temporal lesion along the posterior parah ippocampal gyrus 5. Notable enhancing suspected subependymal lesions involving the roof of the fourth ventricle and m esial RIGHT temporal lobe along the suprasellar cistern Notified Sarbjit Garcia MD at 01/31/2023 2:43 PM.
[2023-01-31] MEDS: gadobenate dimeglumine 20 mL vial IV (09:34)
== END 2023-01-31 08:25 | disposition home or self-care (01) ==
LOC: RAD 08:24
PROVIDERS: PCP Family Medicine; Visit Provider Internal Medicine Medical Oncology
DX: C43.9 Malignant melanoma of skin, unspecified (principal); C79.31 Secondary malignant neoplasm of brain; G93.6 Cerebral edema; I61.8 Other nontraumatic intracerebral hemorrhage
CPT/HCPCS: 70553; A9577

== ENCOUNTER 2023-02-01 21:36 | Emergency (ER) | payer MEDICARE, BC, SELFPAY ==
[2023-02-01 21:37] VITALS: BP 128/80; PULSE 65; RESP 16; TEMP 37.2; O2SAT 97; BMI 25.0
--- NOTE | 2023-02-01 21:49 | ED_ITS ---
HPI - Male Genitourinary 2 General: Chief complaint: Urogenital-Male Stated complaint: difficulty urinating Time Seen by Provider: 02/01/23 21:38 History of Present Illness: 77-year-old male patient comes in today from the detention for concerns of frequency of urination. Patient appears nontoxic. Patient reports painful urination. Patient was evaluated 2 days ago for a fall showed no acute injuries. Patient has a history of metastatic melanoma. Review of Systems 2 General: Reports: 10 or more systems reviewed and unremarkable except in HPI and below : Reports: difficulty urinating PFS ED 2 PFSH: Medical History (Updated 02/01/23 @ 22:41 by MATTHEW Sales) Atrial fibrillation CVA (cerebral vascular accident) Family history of malignant melanoma Malignant melanoma T2bN0, right posterior neck BPH loc w urin obs/LUTS History of herniated intervertebral disc Since he was at least 32years old. 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 It does not affect his life and he does not take any medications for it. Renal and ureteric calculus Urolithiasis Surgical History H/O melanoma excision (01/19/21) Wide local excision with sentinel lymph node biopsy History of tonsillectomy H/O lithotripsy ESWL Family History Mother , AT AGE 90 Diabetes CHF (congestive heart failure) CAD (coronary artery disease) Father CHF (congestive heart failure) AT AGE 92 CAD (coronary artery disease) Dementia Brother Protein S deficiency Unknown No problems noted. Family/Other Protein S deficiency His brother w/ Protein S deficiency's 2 daughters (Patient's 2 nieces). One of the niece's 2 daughters. Bleeding disorder Clotting disorder Denies family history of Suicide Anesthesia complication Lung disease Cancer Stroke Social History Smoking and tobacco/nicotine status: never used tobacco/nicotine Alcohol intake: never Substance/Drug Use: never Marital status: Single Current occupational status: retired Physical Exam 2 Const: COMMON NORMALS: alert HENMT: COMMON NORMALS: normocephalic HEAD & SCALP: normocephalic Neck/C-Spine: COMMON NORMALS: full ROM Resp: COMMON NORMALS: normal respiratory effort and clear to auscultation bilaterally AUSCULTATION: clear to auscultation bilaterally Cardio: COMMON NORMALS: regular rate and regular rhythm RATE: regular rate RHYTHM: regular rhythm GI: COMMON NORMALS: non-tender : COMMON NORMALS: Yes normal external exam Back/Pelvis: COMMON NORMALS: thoracic and lumbar spine normal to inspection Extremity: LEFT LOWER EXTREMITY: Yes ankle joint (Mild bruising swelling stable joint) Neuro: SENSORIUM/ORIENTATION: Yes alert Skin: COMMON NORMALS: turgor normal GENERAL SKIN EXAM: turgor normal Course 2 Vital Signs: Vital signs: Vital Signs Temperature 99 F 02/01/23 21:37 Pulse Rate 61 02/01/23 21:53 Respiratory Rate 18 02/01/23 21:53 Blood Pressure 123/70 02/01/23 21:53 Pulse Oximetry 97 02/01/23 21:53 Oxygen Delivery Me thod Room Air 02/01/23 21:53 MDM - Male Medical Decision Making 77-year-old male patient was referred to the ER from a detention for concerns of increased urinary frequency. On exam patient appears nontoxic. Abdomen is soft nontender. Skin is warm and dry. Vital signs are normal. Differential diagnosis includes not limited to dehydration, urinary tract infection, BPH. CBC notes some mild leukocytosis at 11,000 which is improved from 2 days ago which was 15,000. CMP was unremarkable. Urinalysis was clean. Bladder scan showed small amount of retained urine of 150 cc after urination of 150 mL. Patient may have some mild urinary retention we will go ahead and start tamsulosin for a trial to see if it will help with patient's urinary frequency. No signs of severe illness was noted. Recommend follow-up as needed. Return to ED for new concerns. Lab Data 02/01/23 21:45 02/01/23 21:45 Laboratory Results WBC 11.44 10^3/uL (3.29-11.43) H 02/01/23 21:45 RBC 4.51 10^6/uL (3.85-5.65) 02/01/23 21:45 Hgb 14.20 g/dL (11.27-16.99) 02/01/23 21:45 Hct 43.3 % (37-53) 02/01/23 21:45 MCV 96.0 fl (82-101) 02/01/23 21:45 MCH 31.5 pg (27-33) 02/01/23 21:45 MCHC 32.8 g/dL (30-55) 02/01/23 21:45 RDW 15.1 % (12.1-15.1) 02/01/23 21:45 Plt Count 182 10^3/cmm (157-399) 02/01/23 21:45 MPV 8.6 fL (7.4-10.4) 02/01/23 21:45 Neut % (Auto) 81.2 % 02/01/23 21:45 Lymph % (Auto) 10.5 % 02/01/23 21:45 [place] % (Auto) 6.6 % 02/01/23 21:45 Eos % (Auto) 0.3 % 02/01/23 21:45 Baso % (Auto) 0.2 % 02/01/23 21:45 Neut # (Auto) 9.29 10^3/uL (1.8-7.7) H 02/01/23 21:45 Lymph # (Auto) 1.2 10^3/uL (0.8-4.8) 02/01/23 21:45 [place] # (Auto) 0.8 10^3/uL (0.2-0.9) 02/01/23 21:45 Eos # (Auto) 0.0 10^3/uL (0.0-0.8) 02/01/23 21:45 Baso # (Auto) 0.0 10^3/uL (0.0-0.1) 02/01/23 21:45 Nucleated RBC % (auto) 0 % 02/01/23 21:45 Nucleated RBCs # 0.0 /100WBC 02/01/23 21:45 Sodium 135 mmol/L (136-145) L 02/01/23 21:45 Potassium 4.3 mmol/L (3.5-5.1) 02/01/23 21:45 Chloride 101 mmol/L (98-107) 02/01/23 21:45 Carbon Dioxide 28 mmol/L (22-29) 02/01/23 21:45 Anion Gap 10.3 (5-19) 02/01/23 21:45 BUN 22 mg/dL (8-23) 02/01/23 21:45 Creatinine 0.6 mg/dL (0.7-1.2) L 02/01/23 21:45 GFR Calculation Not Reportable 02/01/23 21:45 Glucose 97 mg/dL (65-115) 02/01/23 21:45 Calculated Osmolality 283 mOsm/kg (285-295) L 02/01/23 21:45 Calcium 9.3 mg/dL (8.5-10.5) 02/01/23 21:45 Total Bilirubin 0.5 mg/dL (0.15-1.2) 02/01/23 21:45 AST 35 U/L (0-40) 02/01/23 21:45 ALT 86 U/L (0-41) H 02/01/23 21:45 Alkaline Phosphatase 56 U/L (40-130) 02/01/23 21:45 Total Protein 6.0 g/dL (6.6-8.7) L 02/01/23 21:45 Albumin 3.8 g/dL (3.5-5.2) 02/01/23 21:45 Globulin 2.2 g/dL (1.3-4.6) 02/01/23 21:45 Urine Color Light yellow (Yellow) 02/01/23 21:56 Urine Appearance Clear (CLEAR) 02/01/23 21:56 Urine pH 8 (5-7) H 02/01/23 21:56 Ur Specific [place] 1.010 (1.005-1.030) 02/01/23 21:56 Urine Protein Neg (Negative) 02/01/23 21:56 Urine Glucose (UA) Norm (Normal) 02/01/23 21:56 Urine Ketones Negative (Negative) 02/01/23 21:56 Urine Blood Neg (Negative) 02/01/23 21:56 Urine Nitrate Negative (Negative) 02/01/23 21:56 Urine Bilirubin Neg (Negative) 02/01/23 21:56 Prot Sulfosalicylic Acd Negative (Negative) 02/01/23 21:56 Urine Urobilinogen Neg mg/dL (Negative) 02/01/23 21:56 Ur Leukocyte Esterase Negative (Negative) 12/28/23 21:56 No radiology studies performed this visit Discharge Plan Discharge Patient Disposition: Home Clinical Impression: Benign prostatic hyperplasia with urinary frequency, Malignant melanoma of right side of neck Condition: Stable Prescriptions: New tamsulosin 0.4 mg capsule 0.4 mg PO DAILY Qty: 30 0RF No Action Eliquis 5 mg tablet 5 mg PO BID (DME) wheeled seated walker See Rx Instructions .Route .MEDSUPPLY Qty: 1 0RF Rx Instructions: As directed trametinib 2 mg tablet 2 mg PO DAILY Qty: 28 11RF Rx Instructions: must be taken on empty stomach, at least 1 hr before or 2-3 hrs after meal/food dabrafenib 75 mg capsule 150 mg PO BID Qty: 112 11RF Rx Instructions: administer approximately 12 hours apart Centrum Silver Men 300-600-300 mcg Tablet 1 tab PO DAILY Magtab 84 mg tablet extended release 84 mg PO BID dexamethasone 4 mg tablet 4 mg PO QID Qty: 30 0RF hydrocodone-acetaminophen 5-325 mg tablet 1 tab PO Q8H PRN (Reason: pain) Qty: 7 0RF Discharge Orders: Discharge ED (Routine); Ordered 02/01/23 Ordered By: Kulwinder Radford Referrals: Charlie Sears MD [Primary Care Provider] - Discharge Diet: Usual diet Discharge Activity: Increase activity as tolerated Patient Instructions: Urinary Retention in Men (ED) Activity Restrictions/Additional Instructions: Continue routine care. Add tamsulosin to routine regimen of medication to assist with urinary frequency. Follow-up with primary care for further instructions. Return to ED for new concerns such as high fever, persistent nausea vomiting, or new concerns. Coding Level of Care Code ED Cutting And Printing Machine Operator for Lesli Hickey
[2023-02-01 21:53] VITALS: BP 123/70; PULSE 61; RESP 18; O2SAT 97
[2023-02-01 21:54] LABS: Basophils % 0.2 %; Eosinophils % 0.3 %; Hematocrit 43.3 % (37-53); Lymphocytes # 1.2 10^3/uL (0.8-4.8); Lymphocytes % 10.5 %; Mean Corpuscular HGB Conc 32.8 g/dL (30-55); Mean Corpuscular Hemoglobin 31.5 pg (27-33); Mean Platelet Volume 8.6 fL (7.4-10.4); Monocytes # 0.8 10^3/uL (0.2-0.9); Monocytes % 6.6 %; Neutrophils # 9.29 10^3/uL (1.8-7.7); Neutrophils % 81.2 %; Nucleated Red Blood Cells % 0 %; Platelet Count 182 10^3/cmm (157-399); Red Blood Count 4.51 10^6/uL (3.85-5.65); Red Cell Distribution Width 15.1 % (12.1-15.1); White Blood Count 11.44 10^3/uL (3.29-11.43)
[2023-02-01 22:01] LABS: Add Urine Microscopic? NO; Charge for UA Resulting for Rev
[2023-02-01 22:04] LABS: Urine Appearance Clear (CLEAR); Urine Color Light yellow (Yellow)
[2023-02-01 22:05] LABS: Bilirubin Urine Neg (Negative); Blood Urine Neg (Negative); Glucose Urine UA Norm (Normal); Ketones Urine Negative (Negative); Leukocyte Esterase Urine Negative (Negative); Nitrate Urine Negative (Negative); Protein Urine Neg (Negative); Sulfosalicylic Acid Urine Negative (Negative); Urobilinogen Urine Neg (Negative); pH Urine 8 (5-7)
[2023-02-01 22:09] LABS: Alanine Aminotransferase 86 U/L (0-41); Albumin Level 3.8 g/dL (3.5-5.2); Alkaline Phosphatase 56 U/L (40-130); Anion Gap 10.3 (5-19); Aspartate Amino Transferase 35 U/L (0-40); Blood Urea Nitrogen 22 mg/dL (8-23); Calcium 9.3 mg/dL (8.5-10.5); Carbon Dioxide 28 mmol/L (22-29); Chloride 101 mmol/L (98-107); Globulin 2.2 g/dL (1.3-4.6); Glucose 97 mg/dL (65-115); Osmolality Calculated 283 mOsm/kg (285-295); Potassium 4.3 mmol/L (3.5-5.1); Sodium 135 mmol/L (136-145); Total Bilirubin 0.5 mg/dL (0.15-1.2)
--- NOTE | 2023-02-01 22:54 | PC.NURSE ---
Report called to Anita at [facility]. All questions and concerns addressed at time of report.
[2023-02-01] MEDS: tamsulosin 0.4 mg Capsule PO (23:03)
[2023-02-01] MEDS: HYDROcodone-acetaminophen 5-325 mg Tablet 1 TAB PO (23:03)
[2023-02-01 23:04] VITALS: BP 135/88; PULSE 96; RESP 18; O2SAT 96
== END 2023-02-01 23:27 | disposition home or self-care (01) ==
PROVIDERS: Emergency Provider Nurse Practitioner Family; PCP Family Medicine
DX: N40.1 Benign prostatic hyperplasia with lower urinary tract symptoms (principal); R35.0 Frequency of micturition; C43.4 Malignant melanoma of scalp and neck; Z79.01 Long term (current) use of anticoagulants; Z86.73 Personal history of transient ischemic attack (TIA), and cerebral infarction without residual deficits
CPT/HCPCS: 36415; 51798; 80053; 81003; 85025; 99283